=== PATIENT | female | born 1945 | race Caucasian/White ===

== ENCOUNTER 2019-10-18 17:18 | Emergency (ER) | payer MEDICARE, OTHER, SELFPAY ==
[2019-10-18 17:43] VITALS: BP 159/87; PULSE 75; RESP 16; TEMP 36.5; O2SAT 99; BMI 29.5
--- NOTE | 2019-10-18 18:12 | CTR_ITS ---
PROCEDURE INFORMATION: Exam: CT Head Without Contrast Exam date and time: 10/18/2019 6:14 PM Age: 74 years old Clinical indication: Altered mental status/memory loss; Confusion or disorientation; Additional info: AMS TECHNIQUE: Imaging protocol: Computed tomography of the head without contrast. Total DLP: 774.75 mGy-cm Radiation optimization: All CT scans at this facility use at least one of these dose optimization techniques: automated exposure control; mA and/or kV adjustment per patient size (includes targeted exams where dose is matched to clinical indication); or iterative reconstruction. COMPARISON: CT head wo con* [id number] 05/13/2016 7:53 PM FINDINGS: Brain: Mild diffuse cortical volume loss. Mild hypodensities in supratentorial periventricular white matter. No intracranial hemorrhage. Ventricles: Normal. No ventriculomegaly. Bones/joints: Unremarkable. No acute fracture. Sinuses: Visualized sinuses are unremarkable. No fluid levels. Mastoid air cells: Visualized mastoid air cells are well aerated. Soft tissues: Unremarkable. CT/CT head wo con* [id number] IMPRESSION: 1. No acute intracranial abnormality. 2. Mild microangiopathy. Radiation Dose CTDIVOL = (mGy): DLP = 774.75 (mGy-cm)
--- NOTE | 2019-10-18 18:12 | XR_ITS ---
WS: [id number] PORTABLE CHEST HISTORY: Chest pain, acute onset. COMPARISON: 05/13/2016 Lungs are clear and well expanded. No pleural effusion or pneumothorax. Cardiac size: Normal. Mediastinum/Aorta: Normal mediastinum. No osseous abnormality seen. XR/XR chest 1V portable [id number] IMPRESSION: Unremarkable portable chest.
--- NOTE | 2019-10-18 18:13 | ECG_ITS ---
Measurements Intervals [place] Rate: 74 P: 35 [place]: 174 QRS: 2 QRSD: 85 T: 31 QT: 368 QTc: [address] ELEVATION [0.05+ mV ST ELEVATION] Compared to ECG 01/08/2017 11:56:08 ST (T wave) deviation now present Myocardial infarct finding no longer present Electronically Signed On 10-19-2019 13:29:58 RESEARCH MECHANIC by Alisha Olivarez M.D. [id number]
[2019-10-18 19:14] LABS: Basophils % 0.6 %; Eosinophils # 0.2 10^3/uL (0.0-0.8); Eosinophils % 2.6 %; Hematocrit 40.7 % (37.0-47.0); Hemoglobin 13.7 g/dL (11.5-15.3); Lymphocytes # 1.3 10^3/uL (0.8-4.8); Lymphocytes % 19.7 %; Mean Corpuscular HGB Conc 33.7 g/dL (30.0-36.0); Mean Corpuscular Hemoglobin 29.8 pg (28.0-34.0); Mean Corpuscular Volume 88.7 fL (81-99); Mean Platelet Volume 10.3 fL (7.4-10.4); Monocytes # 0.6 10^3/uL (0.2-0.9); Monocytes % 8.7 %; Neutrophils # 4.4 10^3/uL (1.8-7.7); Neutrophils % 68.1 %; Nucleated Red Blood Cells % 0 %; Platelet Count 222 10^3/cmm (130-400); Red Blood Count 4.59 10^6/uL (4.1-5.3); Red Cell Distribution Width 12.3 % (12.1-15.1); White Blood Count 6.4 10^3/uL (4.0-10.0)
--- NOTE | 2019-10-18 19:30 | ECG_ITS ---
Measurements Intervals [place] Rate: 74 P: 35 [place]: 174 QRS: 2 QRSD: 85 T: 31 QT: 368 QTc: [address] ELEVATION [0.05+ mV ST ELEVATION] Compared to ECG 01/08/2017 11:56:08 ST (T wave) deviation now present Myocardial infarct finding no longer present Electronically Signed On 10-19-2019 13:41:[address] RESEARCHER by Alisha Olivarez M.D. [id number]
[2019-10-18 19:57] LABS: Alanine Aminotransferase 19 U/L (0-33); Albumin Level 4.9 g/dL (3.5-5.2); Alkaline Phosphatase 89 IU/L (35-105); Anion Gap 16.8 (5-19); Aspartate Amino Transferase 26 U/L (0-32); Blood Urea Nitrogen 11 mg/dL (8-23); Calcium 10.5 mg/Dl (8.8-10.2); Carbon Dioxide 24 mmol/L (22-29); Chloride 95 mmol/L (98-107); Globulin 2.2 g/dL (1.3-4.6); Glucose 146 mg/dL (74-106); Potassium 3.8 mmol/L (3.5-5.1); Sodium 132 mmol/L (136-145); Total Bilirubin 0.4 mg/dL (0.15-1.2); Total Protein 7.1 g/dL (6.6-8.7); Troponin(5th) Baseline 11 ng/mL (0-10)
--- NOTE | 2019-10-18 20:13 | ECG_ITS ---
Measurements Intervals [place] Rate: 70 P: 35 [place]: 161 QRS: -3 QRSD: 89 T: 18 QT: 382 QTc: 413 SINUS RHYTHM Compared to ECG 01/08/2017 11:56:08 Myocardial infarct finding no longer present Electronically Signed On 10-19-2019 13:39:21 CIAIO LUMITE INJECTOR by Alisha Olivarez M.D. [id number]
[2019-10-18 20:48] LABS: Troponin 5 2HR 12.27 ng/mL (0-10); Troponin 5 2HR Delta 1.27 ABS# (0-10)
--- NOTE | 2019-10-18 22:42 | ED_ITS ---
Entered by Marybeth Cabrera, acting as scribe for Areli Helms MD Oct 18, 2019 17:18 HPI - Altered Mental Status General: Chief Complaint: Altered Mental Status Stated Complaint: ams Time Seen by Provider: 10/18/19 22:43 Source: patient Mode of arrival: ambulatory Limitations: no limitations History of Present Illness: HPI narrative: 74 yo f came to the er pov for altered mental status. Onset was today. Pt states that the last 2-3 days she has had some spells where she was nauseated but did not vomit. Pt states that she was waiting on her grand daughter and she states that she could not focus and she was white as a ghost. Pt states that she has had mini strokes and that pt also lost her memory for years. complaint: altered mental status Onset (ago): day(s) (2-3 days ago) Timing confirmed by: family member Severity: mild Associated symptoms: Reports no associated symptoms; Deny depression Review of Systems Const: Denies: fever or chills Eyes: Denies: change in vision ENMT: Denies: throat pain or mouth pain Card: Denies: chest pain Resp: Denies: shortness of breath GI: Denies: abdominal pain, vomiting or diarrhea : Denies: difficulty urinating Musc: Denies: back pain or joint pain Skin/Breast: Denies: rash Neuro: Denies: headache Psych: Denies: depression Endo: Denies: excessive urination Neel/Lymph: Denies: easy bruising All/Imm: Denies: hives PFSH ED PFSH: Statuses (acute, chronic, etc) shown below reflect problem list status as previously entered and may not be historically accurate Social History Smoking and tobacco status: never smoked Physical Exam Const: COMMON NORMALS: no apparent distress, oriented x3, healthy appearing and alert ORIENTATION/CONSCIOUSNESS: Yes oriented to person, Yes oriented to place and Yes oriented to time HENMT: COMMON NORMALS: normocephalic and external nose normal HEAD & SCALP: normocephalic NOSE: external nose normal Eye: COMMON NORMALS: PERRL PUPIL: Yes PERRL Neck/C-Spine: COMMON NORMALS: full ROM and no lymphadenopathy Chest: COMMONS NORMALS: inspection of chest normal Resp: COMMON NORMALS: normal respiratory effort, no use of accessory muscles and clear to auscultation bilaterally AUSCULTATION: clear to auscultation bilaterally Cardio: COMMON NORMALS: regular rate and regular rhythm RATE: regular rate RHYTHM: regular rhythm GI: COMMON NORMALS: normal to inspection, nondistended, normoactive bowel sounds, soft to palpation, non-tender and no masses PALPATION: Yes soft Back/Pelvis: THORACIC SPINE/UPPER BACK: Yes normal to inspection Extremity: COMMON NORMALS: normal to inspection, full ROM and normal capillary refill Neuro: COMMON NORMALS: oriented x3, CN's II-XII intact bilaterally, moves all extremities, no focal motor deficits and no sensory deficits noted SENSORIUM/ORIENTATION: Yes alert, Yes oriented to person, Yes oriented to place and Yes oriented to time Psych: COMMON NORMALS: mental status grossly normal and cooperative Skin: COMMON NORMALS: no rashes or lesions noted GENERAL SKIN EXAM: no rashes or lesions noted Course Vital Signs: Vital signs: Vital Signs Temperature 97.7 F 10/18/19 23:00 Pulse Rate 74 10/18/19 23:00 Respiratory Rate 16 10/18/19 23:00 Blood Pressure 134/84 10/18/19 23:00 Pulse Oximetry 99 10/18/19 23:00 MDM - Altered Mental Status MDM Narrative: Medical decision making narrative: Patient presents here with an episode of confusion earlier today. Symptoms sound like a TIA and she has a history of this. Patient is to continue her daily aspirin. Patient is well- appearing here and has no signs of acute stroke. Patient is stable for discharge and is to follow-up with her primary care doctor in 3 to 5 days. I informed patient that if her symptoms return she is to return immediately. Lab Data: Labs: Lab Results 10/18/19 10/18/19 10/18/19 Range/Units 19:04 19:04 19:04 WBC 6.4 (4.0-10.0) 10^3/ uL RBC 4.59 (4.1-5.3) 10^6/u L Hgb 13.7 (11.5-15.3) g/dL Hct 40.7 (37.0-47.0) % MCV 88.7 (81-99) fL MCH 29.8 (28.0-34.0) pg MCHC 33.7 (30.0-36.0) g/dL RDW 12.3 (12.1-15.1) % Plt Count 222 (130-400) 10^3/c mm MPV 10.3 (7.4-10.4) fL Neut % (Auto) 68.1 % Lymph % (Auto) 19.7 % [place] % (Auto) 8.7 % Eos % (Auto) 2.6 % Baso % (Auto) 0.6 % Neut # (Auto) 4.4 (1.8-7.7) 10^3/u L Lymph # (Auto) 1.3 (0.8-4.8) 10^3/u L [place] # (Auto) 0.6 (0.2-0.9) 10^3/u L Eos # (Auto) 0.2 (0.0-0.8) 10^3/u L Baso # (Auto) 0.0 (0.0-0.1) 10^3/u L Nucleated RBC % (a uto) 0 % Nucleated RBCs # 0.0 /100WBC Sodium 132 L (136-145) mmol/L Potassium 3.8 (3.5-5.1) mmol/L Chloride 95 L (98-107) mmol/L Carbon Dioxide 24 (22-29) mmol/L Anion Gap 16.8 (5-19) BUN 11 (8-23) mg/dL Creatinine 0.9 (0.5-0.9) mg/dL Glucose 146 H (74-106) mg/dL Calcium 10.5 H (8.8-10.2) mg/Dl Total Bilirubin 0.4 (0.15-1.2) mg/dL AST 26 (0-32) U/L ALT 19 (0-33) U/L Alkaline Phosphata se 89 (35-105) IU/L Troponin T Baselin e 11 H (0-10) ng/mL Troponin T 120 Min lana (0-10) ng/mL Delta Troponin T (0-10) ABS# Total Protein 7.1 (6.6-8.7) g/dL Albumin 4.9 (3.5-5.2) g/dL Globulin 2.2 (1.3-4.6) g/dL 01/13/20 Range/Units 20:12 WBC (4.0-10.0) 10^3/ uL RBC (4.1-5.3) 10^6/u L Hgb (11.5-15.3) g/dL Hct (37.0-47.0) % MCV (81-99) fL MCH (28.0-34.0) pg MCHC (30.0-36.0) g/dL RDW (12.1-15.1) % Plt Count (130-400) 10^3/c mm MPV (7.4-10.4) fL Neut % (Auto) % Lymph % (Auto) % [place] % (Auto) % Eos % (Auto) % Baso % (Auto) % Neut # (Auto) (1.8-7.7) 10^3/u L Lymph # (Auto) (0.8-4.8) 10^3/u L [place] # (Auto) (0.2-0.9) 10^3/u L Eos # (Auto) (0.0-0.8) 10^3/u L Baso # (Auto) (0.0-0.1) 10^3/u L Nucleated RBC % (a uto) % Nucleated RBCs # /100WBC Sodium (136-145) mmol/L Potassium (3.5-5.1) mmol/L Chloride (98-107) mmol/L Carbon Dioxide (22-29) mmol/L Anion Gap (5-19) BUN (8-23) mg/dL Creatinine (0.5-0.9) mg/dL Glucose (74-106) mg/dL Calcium (8.8-10.2) mg/Dl Total Bilirubin (0.15-1.2) mg/dL AST (0-32) U/L ALT (0-33) U/L Alkaline Phosphata se (35-105) IU/L Troponin T Baselin e (0-10) ng/mL Troponin T 120 Min lana 12.27 H (0-10) ng/mL Delta Troponin T 1.27 (0-10) ABS# Total Protein (6.6-8.7) g/dL Albumin (3.5-5.2) g/dL Globulin (1.3-4.6) g/dL Imaging Data^: CXR: Attestation: I personally reviewed and interpreted this imaging study as follows: My impression: no acute abnormality CT Head: Radiologist's impression: Ordering Provider/Ordering MD: Areli Helms MD Date of Service: 10/18/19 Procedure(s): CT head wo con* [id number] Accession Number(s): [id number] Report Number: [id number] PROCEDURE INFORMATION: Exam: CT Head Without Contrast Exam date and time: 10/18/2019 6:14 PM Age: 74 years old Clinical indication: Altered mental status/memory loss; Confusion or disorientation; Additional info: AMS TECHNIQUE: Imaging protocol: Computed tomography of the head without contrast. Total DLP: 774.75 mGy-cm Radiation optimization: All CT scans at this facility use at least one of these dose optimization techniques: automated exposure control; mA and/or kV adjustment per patient size (includes targeted exams where dose is matched to clinical indication); or iterative reconstruction. COMPARISON: CT head wo con* [id number] 05/13/2016 7:53 PM FINDINGS: Brain: Mild diffuse cortical volume loss. Mild hypodensities in supratentorial periventricular white matter. No intracranial hemorrhage. Ventricles: Normal. No ventriculomegaly. Bones/joints: Unremarkable. No acute fracture. Sinuses: Visualized sinuses are unremarkable. No fluid levels. Mastoid air cells: Visualized mastoid air cells are well aerated. Soft tissues: Unremarkable. CT/CT head wo con* [id number] IMPRESSION: 1. No acute intracranial abnormality. 2. Mild microangiopathy. EKG Data^: EKG 1: EKG interpretation date: 10/18/19 EKG interpretation time: 20:40 Interpretation: nsr hr [address] or t wave abnormalties Discharge Plan Discharge Patient Disposition: Home, Self-Care Clinical Impression: TIA (transient ischemic attack) Altered mental status Qualifiers: Altered mental status type: unspecified Qualified Code(s): R41.82 - Altered mental status, unspecified Condition: Stable Prescriptions: No Action gabapentin 300 mg capsule 300 mg PO BID Qty: 180 RF: 3 Discharge Orders: Discharge Order (Routine); Ordered 10/18/19 Ordered By: Areli Helms Referrals: Laurent Yao MD [Primary Care Provider] - 4-7 days Discharge Diet: Advance as tolerated Discharge Activity: Resume usual activity Patient Instructions: Transient Ischemic Attack (ED) Discharge Date/Time: 10/18/19 23:01 Coding Level of Care Code ED Weatherization Technician for Chg Fwd Exam Problem Focused The documentation recorded by the Rick tamez Stephanie Lyn, accurately reflects the service I personally performed and the decisions made by me, Areli Helms MD Oct 18, 2019 17:18
[2019-10-18 23:00] VITALS: BP 134/84; PULSE 74; RESP 16; TEMP 36.5; O2SAT 99
== END 2019-10-18 23:01 | disposition home or self-care (01) ==
PROVIDERS: Emergency Provider Emergency Medicine; Family Provider Internal Medicine; PCP Internal Medicine
DX: G45.9 Transient cerebral ischemic attack, unspecified (principal)
CPT/HCPCS: 36415; 70450; 71045; 80053; 84484; 85025; 93005; 99281

== ENCOUNTER → 2019-11-01 10:52 | Outpatient (BNVA) | payer MEDICARE, OTHER, SELFPAY | PROVIDERS: Family Provider Internal Medicine; PCP Internal Medicine; Visit Provider Internal Medicine | DX: E78.5 Hyperlipidemia, unspecified (principal); Z86.73 Personal history of transient ischemic attack (TIA), and cerebral infarction without residual deficits | CPT/HCPCS: 80061 ==

== ENCOUNTER 2019-11-09 08:16 | Outpatient (CLI) | payer MEDICARE, OTHER, SELFPAY ==
--- NOTE | 2019-11-09 08:00 | MR_ITS ---
WS: [id number] MRA CAROTID WITHOUT AND WITH GADOLINIUM ENHANCEMENT TECHNIQUE: Axial 2-D TOF and gadolinium bolus images obtained with axial images and axial, sagittal, and coronal 2-D reformatted images. CLINICAL INFORMATION: HISTORY OF CVA COMPARISON: None. FINDINGS: Right common carotid artery is patent. No significant ICA stenosis. Right ICA is patent to the skull base. Left common carotid artery is patent. No significant left ICA stenosis. Left ICA is patent to the sku ll base. Both vertebral arteries are patent. Codominant vertebral arteries bilaterally. Proximal basilar arter y is patent. MR/MR angio neck w con* [id number] IMPRESSION: 1. No significant ICA stenosis bilaterally. 2. Codominant and patent vertebral arteries. 3. Normal MRA neck.
--- NOTE | 2019-11-09 08:45 | MR_ITS ---
WS: [id number] MRI HEAD WITH CONTRAST TECHNIQUE: Sagittal T1, T2 axial, T2 axial FLAIR, axial susceptibility weighted imaging, axial diffus ion weighted images, and coronal T2 images were obtained. Pre and post-T1 axial and post T1 coronal i mages. ADC and FSPGR images. CLINICAL INFORMATION: history cva COMPARISON: CT October 18, 2019 and MRI FINDINGS: No evidence of restricted diffusion to suggest acute ischemia. Ventricular system and basal cisterns are patent. Mild small vessel changes. Moderate parenchymal volume loss. Normal posterior fossa. Norm al vascular flow voids at the skull base. No extra-axial fluid collections. Partial opacification lef t mastoid tip. No hemosiderin on the susceptibility weighted images. Normal optic chiasm and pituitary infundibulum. No abnormal intracranial enhancement. Normal visualiz ed dural venous sinuses. MR/MR head wo/w con [id number] IMPRESSION: 1. No evidence of restricted diffusion to suggest acute ischemia. 2. Mild small vessel changes with moderate parenchymal volume loss. Volume los s only slightly progressed since 2011. 3. No hemosiderin on susceptibly weighted images. 4. No abnormal intracranial enhancement. 5. Mucosal thickening left mastoid air cells.
== END 2019-11-09 08:17 | disposition home or self-care (01) ==
LOC: RADSHAW 08:20
PROVIDERS: Family Provider Internal Medicine; PCP Internal Medicine; Visit Provider Internal Medicine
DX: Z86.73 Personal history of transient ischemic attack (TIA), and cerebral infarction without residual deficits (principal)
CPT/HCPCS: 70548; 70553; A9579

== ENCOUNTER 2019-12-14 09:35 | Outpatient (CLI) | payer MEDICARE, OTHER, SELFPAY ==
--- NOTE | 2019-12-14 09:45 | MM_ITS ---
WS: [id number] BILATERAL DIGITAL SCREENING MAMMOGRAPHY WITH CAD CLINICAL INFORMATION: SCREENING HISTORY: Screening mammogram. No current complaints. COMPARISON: April 14, 2019 TECHNIQUE: Bilateral CC and MLO views. FINDINGS: Scattered fibroglandular densities bilaterally. Postoperative changes with parenchymal scarring upper quadrant left breast unchanged. Coarse and punctate calcifications. Vascular calcifications. No susp icious focal mass, asymmetry, calcifications, or architectural distortion. No evidence of malignancy. MM/[place] [id number] IMPRESSION: BI-RADS: 2-Benign FOLLOW UP: 1 Year Follow-up Recommend return to annual screening mammography.
== END 2019-12-14 09:36 | disposition home or self-care (01) ==
LOC: RADSHAW 09:42
PROVIDERS: Family Provider Internal Medicine; PCP Internal Medicine; Visit Provider Internal Medicine
DX: Z12.31 Encounter for screening mammogram for malignant neoplasm of breast (principal)
CPT/HCPCS: 77067

== ENCOUNTER 2020-03-17 09:04 | Day surgery (SDC) | payer MEDICARE, OTHER, SELFPAY ==
[2020-03-17] MEDS: sodium chloride 0.9% 1,000 ML 30 ML IV (09:36)
[2020-03-17 09:44] VITALS: BP 136/63; PULSE 71; RESP 18; TEMP 36.1; O2SAT 98
[2020-03-17 09:48] VITALS: BMI 29.2
--- NOTE | 2020-03-17 09:49 | ANES.PREANE2 ---
Pre-Anesthetic Assessment Pre-Anesthetic Assessment: Height/Weight: Height 1.65 m Weight 79.832 kg Temp Pulse Resp BP Pulse Ox 96.9 F L 71 18 136/63 98 03/17/20 09:44 03/17/20 09:44 03/17/20 09:44 03/17/20 09:44 03/17/20 09:44 Preop Diagnosis: ep Proposed Procedure: Operation Date: 03/17/20 10:30 Proposed Procedures p EGD 17765 R10.13(Not Applicable) - Laurent Yao MD Familial anesthetic complications: None Was Beta True taken within 24 hours: Yes Last intake: Intake Last Liquid Date 03/16/20 Last Liquid Time 19:30 Last Solid Date 03/16/20 Last Solid Time 19:30 Social: Social History: No alcohol and No tobacco Exam: Pre-Anes Outpt Exam: alert, oriented x 3, clear to auscultation bilaterally and regular rate & rhythm Airway: Cervical ROM: WNL MP: 2 Dentition: False Pulmonary: Pulmonary: Asthma CV/HEM: CV/HEM: CAD (stents (> 1 year ago)) and HTN : : None reported Hepatic: Hepatic: None reported GI: GI: GERD Metabolic: Metabolic: Hyperlipidemia and Thyroid Musc/skel: Musc/skel: OA/DJD Comments: spine surgery - cervical Neuropsych: Neuropsych: TIA Comments: memory loss Anesthetic Plan: ASA status: 3 Anesthesia: MAC Risk of > 500 ml blood loss (7ml/kg in children): No Meds/Allergies Current Medications: Current Medications Generic Name Dose Route Start Last Admin Trade Name Freq PRN Reason Stop Dose Admin Sodium Chloride 1,000 mls @ 30 ml s/hr 03/17/20 09:30 03/17/20 09:36 Sodium Chloride 0.9% IV 30 mls/hr .Q24H MANNY Administration PFSH Anesthesia PFSH: Medical History (Updated 03/13/20 @ 14:59 by Laurent Yao MD) Atherosclerotic heart disease Back pain Fibromyalgia History of CVA (cerebrovascular accident) HTN (hypertension) Hyperlipidemia Hypothyroidism Neuropathy Osteoarthritis Surgical History Hx of excision of lamina of cervical vertebra for decompression of spinal cord Dr Patel - 08/2014 S/P angioplasty 08/2004 - 2 stents placed S/P cataract extraction Bilateral - Prosthetic lenses now S/P hysterectomy S/P knee replacement Total right - 07/2006, Total left - 02/2007 S/P rotator cuff repair Right shoulder Status post lumbar laminectomy Dr Patel Family History Father Heart attack Brother CAD (coronary artery disease) Mother Cancer Social History Smoking and tobacco status: never smoked Alcohol intake: current Marital status: History of recent travel: No Current gender identity: Female Data Anesthesia Cardiac Studies: No Data to Display
[2020-03-17] MEDS: metoprolol succinate ER (24 HR) 50 mg Tablet PO (10:13)
--- NOTE | 2020-03-17 10:35 | W.PM.OPSUD ---
Surgery/Procedure H&P Update DATE OF PROCEDURE: March 17, 2020 DATE H&P PERFORMED: 03/13/20 PREOP DIAGNOSIS: ep PLANNED PROCEDURE: Operation Date: 03/17/20 10:30 Proposed Procedures p EGD 38208 R10.13(Not Applicable) - Laurent Yao MD
[2020-03-17 10:59] VITALS: BP 81/70; PULSE 73; RESP 18; TEMP 36.9; O2SAT 97
[2020-03-17 11:11] VITALS: BP 140/79; PULSE 68; RESP 18; O2SAT 99
--- NOTE | 2020-03-17 11:26 | ANE.PACU2 ---
Inpatient post-anesthesia follow up: Airway intact: Yes Vital signs: Temperature 98.4 F Pulse Rate 68 Respiratory Rate 18 Blood Pressure 140/79 Pulse Oximetry 99 Oxygen Delivery Me thod Room Air Oxygen Flow Rate Fraction of Inspir ed Oxygen Hydration adequate: Yes Nausea and vomiting: No Mental status: Baseline
[2020-03-20 06:51] LABS: H. Pylori / CLO Test Negative
== END 2020-03-17 11:57 | disposition home or self-care (01) ==
PROVIDERS: PCP Internal Medicine; Visit Provider Internal Medicine
PROC: 0DJ08ZZ Inspection of Upper Intestinal Tract, Via Natural or Artificial Opening Endoscopic (ICD-10-PCS; CPT 43235; principal; 2020-03-17 10:30)
DX: R10.13 Epigastric pain (principal); K25.7 Chronic gastric ulcer without hemorrhage or perforation; K26.9 Duodenal ulcer, unspecified as acute or chronic, without hemorrhage or perforation; J45.909 Unspecified asthma, uncomplicated; I25.10 Atherosclerotic heart disease of native coronary artery without angina pectoris; E78.5 Hyperlipidemia, unspecified; M19.90 Unspecified osteoarthritis, unspecified site; Z86.73 Personal history of transient ischemic attack (TIA), and cerebral infarction without residual deficits; M79.7 Fibromyalgia; E11.40 Type 2 diabetes mellitus with diabetic neuropathy, unspecified; M81.0 Age-related osteoporosis without current pathological fracture; Z95.5 Presence of coronary angioplasty implant and graft; Z82.49 Family history of ischemic heart disease and other diseases of the circulatory system
CPT/HCPCS: 12345; 43239; 87077; J7030

== ENCOUNTER → 2020-06-26 08:46 | Outpatient (BNVA) | payer MEDICARE, OTHER, SELFPAY | PROVIDERS: PCP Internal Medicine; Visit Provider Internal Medicine Cardiovascular Disease | DX: E78.2 Mixed hyperlipidemia (principal) | CPT/HCPCS: 80061 ==

== ENCOUNTER → 2020-07-10 11:13 | Outpatient (BNVA) | payer MEDICARE, OTHER, SELFPAY | PROVIDERS: Family Provider Internal Medicine; PCP Internal Medicine; Visit Provider Internal Medicine Cardiovascular Disease | DX: R53.83 Other fatigue (principal); N18.9 Chronic kidney disease, unspecified; Z79.01 Long term (current) use of anticoagulants | CPT/HCPCS: 84443; 85025 ==

== ENCOUNTER → 2020-12-26 10:00 | Outpatient (BNVA) | payer MEDICARE, OTHER, SELFPAY | PROVIDERS: Family Provider Internal Medicine; PCP Internal Medicine; Visit Provider Internal Medicine | DX: M19.90 Unspecified osteoarthritis, unspecified site (principal); R53.83 Other fatigue; K27.9 Peptic ulcer, site unspecified, unspecified as acute or chronic, without hemorrhage or perforation | CPT/HCPCS: 80053; 84443; 85025 ==

== ENCOUNTER → 2021-04-26 10:08 | Outpatient (BNVA) | payer MEDICARE, OTHER, SELFPAY | PROVIDERS: Family Provider Internal Medicine; PCP Internal Medicine; Visit Provider Internal Medicine | DX: M79.10 Myalgia, unspecified site (principal); W19.XXXA Unspecified fall, initial encounter; R53.83 Other fatigue | CPT/HCPCS: 80053; 82550; 84443; 85651; 86140 ==

== ENCOUNTER 2021-05-17 20:57 | Emergency (ER) | payer MEDICARE, OTHER, SELFPAY ==
[2021-05-17 21:11] VITALS: BP 131/107; PULSE 63; RESP 18; TEMP 36.9; O2SAT 97; BMI 30.7
--- NOTE | 2021-05-17 21:42 | CTR_ITS ---
PROCEDURE INFORMATION: Exam: CT Head Without Contrast Exam date and time: 05/17/2021 9:42 PM Age: 76 years old Clinical indication: Syncope and collapse; Additional info: Pre-syncope TECHNIQUE: Imaging protocol: Computed tomography of the head without contrast. Radiation optimization: All CT scans at this facility use at least one of these dose optimization techniques: automated exposure control; mA and/or kV adjustment per patient size (includes targeted exams where dose is matched to clinical indication); or iterative reconstruction. COMPARISON: MR head wo/w con [id number] 11/09/2019 8:47 AM RADIATION DOSE METRICS: Total DLP (mGy-cm): 878.71 FINDINGS: Brain: There is moderate cerebral atrophy. No hemorrhage. Unremarkable white matter. No mass effect. Cerebral ventricles: No ventriculomegaly. Paranasal sinuses: Visualized sinuses are unremarkable. No fluid levels. Mastoid air cells: Visualized mastoid air cells are well aerated. Bones/joints: Unremarkable. No acute fracture. Soft tissues: Unremarkable. CT/CT head wo con* [id number] IMPRESSION: No acute intracranial abnormality. Radiation Dose CTDIVOL = (mGy): DLP = 878.71 (mGy-cm)
--- NOTE | 2021-05-17 21:42 | XRR_ITS ---
PROCEDURE INFORMATION: Exam: XR Chest Exam date and time: 05/17/2021 9:42 PM Age: 76 years old Clinical indication: Other: Weakness, near syncope; Prior surgery; Surgery type: Stents; Additional info: Pre-syncope TECHNIQUE: Imaging protocol: XR of the chest. Views: 1 view. COMPARISON: CR XR chest 1V portable [id number] 10/18/2019 6:40 PM FINDINGS: Lungs: Unremarkable. No consolidation. Pleural spaces: Unremarkable. No pleural effusion. No pneumothorax. Heart/Mediastinum: Unremarkable. No cardiomegaly. Bones/joints: Unremarkable. XR/XR chest 1V portable [id number] IMPRESSION: No acute findings.
--- NOTE | 2021-05-17 21:45 | ECG_ITS ---
[facility] ED Test Date: 2021-05-17 Pat Name: Marcy Byers Department: Room: Gender: Female Optical Technician: : 1945 Requested By: Chiqui Stevenson I Order Number: [id number] [place] MD: Alisha Olivarez M.D. Measurements Intervals [place] Rate: 63 P: 53 [place]: 178 QRS: 5 QRSD: 90 T: 38 QT: 412 QTc: 425 Interpretive Statements SINUS RHYTHM Compared to ECG 10/18/2019 20:40:13 No significant changes Electronically Signed On 05-22-2021 16:13:24 CDT by Alisha Olivarez M.D. [email or web address]
[2021-05-17 22:35] VITALS: PULSE 67; RESP 18; O2SAT 97
[2021-05-17 22:52] LABS: Add Urine Culture? Yes; Add Urine Microscopic? YES; Bacteria Urine TRACE /hpf; Bilirubin Urine Neg (Negative); Blood Urine Neg (Negative); Glucose Urine UA Norm (Normal); Hyaline Casts Urine 0-4 /lpf; Ketones Urine Negative (Negative); Leukocyte Esterase Urine 2+ (Negative); Nitrate Urine Negative (Negative); Protein Urine Neg (Negative); RBC Urine 0-4 /hpf (0-2); Specific Gravity, Urine 1.005 (1.005-1.030); Squamous Epithelial Cell Urine 0-4 /hpf (0-5); Sulfosalicylic Acid Urine Negative (Negative); Urine Appearance Clear (CLEAR); Urine Color Yellow (Yellow); Urobilinogen Urine 1 mg/dL (Negative); WBC Urine 15-25 /hpf (0-5); pH Urine 8 (5-7)
[2021-05-17 22:54] LABS: Amphetamines Screen Urine Negative (Negative); Barbiturates Screen Urine Negative (Negative); Benzodiazepines Screen Urine Negative (Negative); Cocaine Screen Urine Negative (Negative); Opiate Screen Urine Negative (Negative); PCP Screen Urine Negative (Negative); THC Screen Urine Negative (Negative)
[2021-05-17 23:04] LABS: Basophils # 0.1 10^3/uL (0.0-0.1); Basophils % 0.8 %; Eosinophils # 0.3 10^3/uL (0.0-0.8); Eosinophils % 4.9 %; Hematocrit 38.8 % (37.0-47.0); Hemoglobin 12.8 g/dL (11.5-15.3); Lymphocytes # 1.4 10^3/uL (0.8-4.8); Lymphocytes % 21.6 %; Mean Corpuscular Hemoglobin 30.3 pg (28.0-34.0); Mean Corpuscular Volume 91.7 fL (81-99); Mean Platelet Volume 10.6 fL (7.4-10.4); Monocytes # 0.7 10^3/uL (0.2-0.9); Monocytes % 10.6 %; Neutrophils # 4.03 10^3/uL (1.8-7.7); Neutrophils % 61.8 %; Nucleated Red Blood Cells % 0 %; Platelet Count 193 10^3/cmm (130-400); Red Blood Count 4.23 10^6/uL (4.1-5.3); Red Cell Distribution Width 12.1 % (12.1-15.1); White Blood Count 6.5 10^3/uL (4.0-10.0)
[2021-05-17 23:05] VITALS: BP 146/89; PULSE 63; RESP 18; O2SAT 98
[2021-05-17 23:12] VITALS: BP 154/65; BP 155/74; BP 156/105; PULSE 61; PULSE 64; PULSE 74
[2021-05-17 23:16] LABS: Troponin(5th) Baseline 12 ng/L (0-10)
[2021-05-17 23:27] LABS: NT Pro B Type Natriuretic Pept 173 pg/mL (0-450); Procalcitonin 0.04 ng/mL (0-0.5); Thyroid Stimulating Hormone 3.99 uIU/mL (0.27-4.20)
--- NOTE | 2021-05-17 23:27 | ED_ITS ---
HPI - Syncope General: Chief Complaint: Syncope Stated Complaint: near syncope Time Seen by Provider: 05/17/21 21:12 Source: patient, family (granddaughter) and RN notes reviewed Mode of arrival: EMS Limitations: no limitations History of Present Illness: HPI narrative: 76-year-old female patient who presents to the emergency department with complaints of possible TIA. She said that several years ago she had multiple TIAs that led to memory issues. She feels like she is feeling the same way again. Today she has had several episodes of feeling dizzy and lightheaded and her brain being foggy. She also felt like her balance was off. Symptoms started more than 12 hours ago. Her granddaughter who presents to the emergency department with the patient states that the patient has these episodes often. Whenever she has these episodes she gives off a blank stare. She is currently working with her primary care provider and he is recommending physical therapy. She has not been evaluated by neurology MD complaint: almost passed out Onset (ago): hour(s) (12) -: minutes(s) Description of event: post-event confusion Prodromal symptoms: lightheaded Witnessed: Yes - by Bystander Context: at rest and standing up Injuries sustained associated with event: none Associated symptoms: Reports lightheadedness; Deny abdominal pain, chest pain, fever(s), headache(s), nausea, short of breath, vertigo or weakness Review of Systems General: Reports: 10 or more systems reviewed and unremarkable except in HPI and below Const: Denies: fever(s) Card: Reports: lightheadedness; Denies: chest pain GI: Denies: abdominal pain or nausea Neuro: Denies: headache(s) or vertigo [facility] ED PFSH: Medical History (Updated 05/18/21 @ 00:16 by Chiqui [place] [facility] [place] Atherosclerotic heart disease Back pain Fatigue Fibromyalgia History of CVA (cerebrovascular accident) HTN (hypertension) Hyperlipidemia Hypothyroidism Neuropathy Osteoarthritis Surgical History (Reviewed 05/17/21 @ 23:39 by Chiqui Stevenson MD, [facility] [place] Hx of excision of lamina of cervical vertebra for decompression of spinal cord Dr Patel - 08/2014 S/P angioplasty 08/2004 - 2 stents placed S/P cataract extraction Bilateral - Prosthetic lenses now S/P hysterectomy S/P knee replacement Total right - 07/2006, Total left - 02/2007 S/P rotator cuff repair Right shoulder Status post lumbar laminectomy Dr Patel Family History (Reviewed 05/17/21 @ 23:39 by Chiqui Stevenson MD, [facility] [place] Father Heart attack Brother CAD (coronary artery disease) Mother Cancer Social History (Reviewed 05/17/21 @ 23:39 by Chiqui Stevenson MD, [facility] [place] Smoking and tobacco status: former smoker Alcohol intake: current Marital status: History of recent travel: No Current gender identity: Female Physical Exam Const: COMMON NORMALS: no acute distress, average body habitus, patient oriented x3, no limitations, healthy appearing, alert and well nourished HENMT: COMMON NORMALS: normocephalic, atraumatic and moist oral mucous membranes HEAD & SCALP: normocephalic and atraumatic Neck/C-Spine: COMMON NORMALS: no meningeal signs and no JVD Resp: COMMON NORMALS: normal respiratory effort, No retractions, No use of ac cessory muscles, clear to auscultation bilaterally and percussion normal AUSCULTATION: clear to auscultation bilaterally PERCUSSION: percussion normal Cardio: COMMON NORMALS: no JVD, regular rate, regular rhythm, S1 normal heart sound present, S2 normal heart sound present, No gallops present (Cardio), No clicks present (Cardio), No murmurs present (Cardio), No rub (Cardio) and Peripheral pulses 2+ throughout RATE: regular rate RHYTHM: regular rhythm HEART SOUNDS: S1 normal heart sound present and S2 normal heart sound present PERIPHERAL PULSES: Peripheral pulses 2+ throughout GI: COMMON NORMALS: Normal to inspection, nondistended, normoactive bowel sounds present, Soft to palpation, non-tender, No hepatosplenomegaly present, no masses and no bruits PALPATION: Yes Soft to palpation and Yes No hepatosplenomegaly present Extremity: COMMON NORMALS: normal to inspection, full ROM, capillary refill normal, no calf tenderness and no pedal edema Neuro: COMMON NORMALS: patient oriented x3 SENSORIUM/ORIENTATION: Yes alert MENINGEAL SIGNS: Yes no meningeal signs Skin: COMMON NORMALS: no rashes or lesions noted, no wounds, turgor normal, no jaundice, no petechiae and no mottling GENERAL SKIN EXAM: no rashes or lesions noted and turgor normal Course Reevaluation(s): Reevaluation #1: Discussed her lab and imaging findings with the patient and her granddaughter. Other than a urinary tract infection no acute findings. We will discharge her home with a prescription for Augmentin. She will be given a dose of intravenous ceftriaxone in the emergency department. Advised that she follows up with a neurologist for further evaluation and work- up and I suspect that she has the onset of dementia. Her granddaughter thinks the same. We will put in a case management referral for her to be referred to a neurologist. The patient states that she does not want to see Dr. Mike so she will be referred to another neurologist. Time: 00:13 Vital Signs: Vital signs: Vital Signs Temperature 98.4 F 05/17/21 21:11 Pulse Rate 61 05/18/21 00:40 Respiratory Rate 18 05/18/21 00:40 Blood Pressure 126/74 05/18/21 00:40 Pulse Oximetry 97 05/18/21 00:40 MDM - Syncope MDM Narrative: Medical decision making narrative: 76-year-old female patient who was brought into the emergency department with concerns for a TIA. She has had multiple episodes of these spells. In the ED her evaluation is consistent with a UTI and nothing else significant. Talking to her though it appears that she has some memory deficits and there is elements of confabulation to her story. She also repeats herself over and over repeats the same stories. I believe the patient has dementia and will benefit from evaluation by neurologist. Another thing to consider is possible seizures and so that is another reason why I advised that she be evaluated by a neurologist. Referral was made to case management to schedule an appointment with a neurologist. Medical Records: Attestation: I reviewed the patient's medical records. Lab Data: Attestation: I reviewed the patient's lab results. Labs: Lab Results 05/17/21 05/17/21 05/17/21 Range/Units 22:27 22:27 22:51 WBC 6.5 (4.0-10.0) 10^3/ uL RBC 4.23 (4.1-5.3) 10^6/u L Hgb 12.8 (11.5-15.3) g/dL Hct 38.8 (37.0-47.0) % MCV 91.7 (81-99) fL MCH 30.3 (28.0-34.0) pg MCHC 33.0 (30.0-36.0) g/dL RDW 12.1 (12.1-15.1) % Plt Count 193 (130-400) 10^3/c mm MPV 10.6 H (7.4-10.4) fL Neut % (Auto) 61.8 % Lymph % (Auto) 21.6 % [place] % (Auto) 10.6 % Eos % (Auto) 4.9 % Baso % (Auto) 0.8 % Neut # (Auto) 4.03 (1.8-7.7) 10^3/u L Lymph # (Auto) 1.4 (0.8-4.8) 10^3/u L [place] # (Auto) 0.7 (0.2-0.9) 10^3/u L Eos # (Auto) 0.3 (0.0-0.8) 10^3/u L Baso # (Auto) 0.1 (0.0-0.1) 10^3/u L Nucleated RBC % (a uto) 0 % Nucleated RBCs # 0.0 /100WBC Sodium (136-145) mmol/L Potassium (3.5-5.1) mmol/L Chloride (98-107) mmol/L Carbon Dioxide (22-29) mmol/L Anion Gap (5-19) BUN (8-23) mg/dL Creatinine (0.5-0.9) mg/dL GFR Calculation Glucose (65-115) mg/dL Calculated Osmolal ity (285-295) mOsm/k g Calcium (8.5-10.5) mg/dL Total Bilirubin (0.15-1.2) mg/dL AST (0-32) U/L ALT (0-33) U/L Alkaline Phosphata se (35-105) IU/L Creatine Kinase (26-192) U/L Troponin T Baselin e (0-10) ng/L C-Reactive Protein (0.0-4.9) mg/L NT-Pro-B Natriuret Pep (0-450) pg/mL Total Protein (6.6-8.7) g/dL Albumin (3.5-5.2) g/dL Globulin (1.3-4.6) g/dL Procalcitonin (0-0.5) ng/mL TSH (0.27-4.20) uIU/ mL Urine Color Yellow (Yellow) Urine Appearance Clear (CLEAR) Urine pH 8 H (5-7) Ur Specific Gravit y 1.005 (1.005-1.030) Urine Protein Neg (Negative) Urine Glucose (UA) Norm (Normal) Urine Ketones Negative (Negative) Urine Blood Neg (Negative) Urine Nitrate Negative (Negative) Urine Bilirubin Neg (Negative) Prot Sulfosalicyli c Acd Negative (Negative) Urine Urobilinogen 1 H (Negative) mg/dL Ur Leukocyte Corinne ase 2+ H (Negative) Urine RBC 0-4 H (0-2) /hpf Urine WBC 15-25 H (0-5) /hpf Ur Squamous Epith Cells 0-4 H (0-5) /hpf Amorphous Sediment Not Reportable Urine Bacteria Trace (NONE) /hpf Hyaline Casts 0-4 H /lpf Urine Opiates Scre en Negative (Negative) ng/mL Ur Barbiturates Sc reen Negative (Negative) ng/mL Ur Phencyclidine S crn Negative (Negative) ng/mL Ur Amphetamines Sc reen Negative (Negative) ng/mL U Benzodiazepines Scrn Negative (Negative) ng/mL Urine Cocaine Scre en Negative (Negative) ng/mL U Marijuana (THC) Screen Negative (Negative) ng/mL 3 05/17/21 05/17/21 Range/Units 22:51 22:51 WBC (4.0-10.0) 10^3/ uL RBC (4.1-5.3) 10^6/u L Hgb (11.5-15.3) g/dL Hct (37.0-47.0) % MCV (81-99) fL MCH (28.0-34.0) pg MCHC (30.0-36.0) g/dL RDW (12.1-15.1) % Plt Count (130-400) 10^3/c mm MPV (7.4-10.4) fL Neut % (Auto) % Lymph % (Auto) % Columbia % (Auto) % Eos % (Auto) % Baso % (Auto) % Neut # (Auto) (1.8-7.7) 10^3/u L Lymph # (Auto) (0.8-4.8) 10^3/u L [place] # (Auto) (0.2-0.9) 10^3/u L Eos # (Auto) (0.0-0.8) 10^3/u L Baso # (Auto) (0.0-0.1) 10^3/u L Nucleated RBC % (a uto) % Nucleated RBCs # /100WBC Sodium 128 L (136-145) mmol/L Potassium 3.9 (3.5-5.1) mmol/L Chloride 94 L (98-107) mmol/L Carbon Dioxide 19 L (22-29) mmol/L Anion Gap 18.9 (5-19) BUN 14 (8-23) mg/dL Creatinine 0.9 (0.5-0.9) mg/dL GFR Calculation Not Reportable Glucose 96 (65-115) mg/dL Calculated Osmolal ity 266 L (285-295) mOsm/k g Calcium 8.8 (8.5-10.5) mg/dL Total Bilirubin 0.5 (0.15-1.2) mg/dL AST 20 (0-32) U/L ALT 12 (0-33) U/L Alkaline Phosphata se 91 (35-105) IU/L Creatine Kinase 83 (26-192) U/L Troponin T Baselin e 12 H (0-10) ng/L C-Reactive Protein 0.6 (0.0-4.9) mg/L NT-Pro-B Natriuret Pep 173 (0-450) pg/mL Total Protein 6.4 L (6.6-8.7) g/dL Albumin 4.1 (3.5-5.2) g/dL Globulin 2.3 (1.3-4.6) g/dL Procalcitonin 0.04 (0-0.5) ng/mL TSH 3.99 (0.27-4.20) uIU/ mL Urine Color (Yellow) Urine Appearance (CLEAR) Urine pH (5-7) Ur Specific Gravit y (1.005-1.030) Urine Protein (Negative) Urine Glucose (UA) (Normal) Urine Ketones (Negative) Urine Blood (Negative) Urine Nitrate (Negative) Urine Bilirubin (Negative) Prot Sulfosalicyli c Acd (Negative) Urine Urobilinogen (Negative) mg/dL Ur Leukocyte Corinne ase (Negative) Urine RBC (0-2) /hpf Urine WBC (0-5) /hpf Ur Squamous Epith Cells (0-5) /hpf Amorphous Sediment Urine Bacteria (NONE) /hpf Hyaline Casts /lpf Urine Opiates Scre en (Negative) ng/mL Ur Barbiturates Sc reen (Negative) ng/mL Ur Phencyclidine S crn (Negative) ng/mL Ur Amphetamines Sc reen (Negative) ng/mL U Benzodiazepines Scrn (Negative) ng/mL Urine Cocaine Scre en (Negative) ng/mL U Marijuana (THC) Screen (Negative) ng/mL Imaging Data^: CXR: Attestation: I personally reviewed and interpreted this imaging study as follows: Radiologist's impression: [address] [id number] ReportSigned Patient: Marcy Byers #: [id number]: 02/03cct#:[id number]/Sex: 76 / FADM Date: 05/17/21Loc: ERRoom/Bed:Attending Dr: Ordering Provider/Ordering MD: Chiqui [place] MD, [facility] [place] of Service: 05/17/21 Procedure(s): XR chest 1V portable [id number] Accession Number(s): [id number] Report Number: [id number] PROCEDURE INFORMATION: Exam: XR Chest Exam date and time: 05/17/2021 9:42 PM Age: 76 years old Clinical indication: Other: Weakness, near syncope; Prior surgery; Surgery type: Stents; Additional info: Pre-syncope TECHNIQUE: Imaging protocol: XR of the chest. Views: 1 view. COMPARISON: CR XR chest 1V portable [id number] 10/18/2019 6:40 PM FINDINGS: Lungs: Unremarkable. No consolidation. Pleural spaces: Unremarkable. No pleural effusion. No pneumothorax. Heart/Mediastinum: Unremarkable. No cardiomegaly. Bones/joints: Unremarkable. XR/XR chest 1V portable [id number] IMPRESSION: No acute findings. Dictated By:Toby Chamorro By:Toby Chamorro Date/Time:05/17/21 2230DD/ 28 CT Head: Attestation: I personally reviewed and interpreted this imaging study as follows: Radiologist's impression: [address] [id number] Scan ReportSigned Patient: Marcy Byers #: [id number]: 3Acct#:[id number]/Sex: 76 / FADM Date: 05/17/21Loc: ERRoom/Bed:Attending Dr: Ordering Provider/Ordering MD: Chiqui Stevenson MD, [facility] [place] Date of Service: 05/17/21 Procedure(s): CT head wo con* [id number] Accession Number(s): [id number] Report Number: [id number] PROCEDURE INFORMATION: Exam: CT Head Without Contrast Exam date and time: 05/17/2021 9:42 PM Age: 76 years old Clinical indication: Syncope and collapse; Additional info: Pre-syncope TECHNIQUE: Imaging protocol: Computed tomography of the head without contrast. Radiation optimization: All CT scans at this facility use at least one of these dose optimization techniques: automated exposure control; mA and/or kV adjustment per patient size (includes targeted exams where dose is matched to clinical indication); or iterative reconstruction. COMPARISON: MR head wo/w con [id number] 11/09/2019 8:47 AM RADIATION DOSE METRICS: Total DLP (mGy-cm): 878.71 FINDINGS: Brain: There is moderate cerebral atrophy. No hemorrhage. Unremarkable white matter. No mass effect. Cerebral ventricles: No ventriculomegaly. Paranasal sinuses: Visualized sinuses are unremarkable. No fluid levels. Mastoid air cells: Visualized mastoid air cells are well aerated. Bones/joints: Unremarkable. No acute fracture. Soft tissues: Unremarkable. CT/CT head wo con* [id number] IMPRESSION: No acute intracranial abnormality. Radiation Dose CTDIVOL = (mGy): DLP = 878.71 (mGy-cm) Dictated By:Frame,KevinSigned By:Frame,KevinSigned Date/Time:05/17/21D/ 29 EKG Data^: EKG 1: Attestation: I personally reviewed and interpreted this EKG as follows: EKG interpretation date: 05/17/21 EKG interpretation time: 22:07 Prior EKG tracings: not available for review Interpretation: Sinus rhythm. Heart rate 63 bpm. Normal axis. No ST changes. EKG 2: Attestation: I personally reviewed and interpreted this EKG as follows: EKG interpretation date: 05/17/21 EKG interpretation time: 23:54 Prior EKG tracings: available for review Interpretation: Sinus rhythm. Heart rate 64 bpm. Normal axis. No ST changes. No significant change from earlier. Discharge Plan Discharge Patient Disposition: Home Clinical Impression: Memory loss UTI (urinary tract infection) Qualifiers: Urinary tract infection type: acute cystitis Hematuria presence: without hematuria Qualified Code(s): N30.00 - Acute cystitis without hematuria Condition: Stable Prescriptions: New Augmentin 500-125 mg tablet 1 tab PO BID Qty: 10 RF: 0 Continued calcium carbonate [Antacid (calcium carbonate)] 200 mg calcium (500 mg) tablet,chewable 400 mg PO BEDTIME RF: 0 Adult 50 Plus Probiotic 4 billion cell capsule 4,000 mmu cells PO DAILY RF: 0 albuterol sulfate [ProAir HFA] 90 mcg/actuation HFA aerosol inhaler 2 puff INHALATION Q4H PRN (Reason: shortness of breath or wheezing) Qty: 18 RF: 3 simvastatin 80 mg tablet 80 mg PO DAILY Qty: 90 RF: 3 celecoxib [Celebrex] 200 mg capsule 200 mg PO BID Qty: 60 RF: 8 lisinopril 20 mg tablet 20 mg PO BID Qty: 180 RF: 3 metoprolol succinate 50 mg tablet extended release 24 hr 50 mg PO DAILY Qty: 90 RF: 3 pantoprazole 40 mg tablet,delayed release (DR/EC) 40 mg PO DAILY Qty: 30 RF: 8 duloxetine 60 mg capsule,delayed release(DR/EC) 60 mg PO DAILY Qty: 30 RF: 3 clopidogrel 75 mg tablet 75 mg PO DAILY Qty: 90 RF: 3 tizanidine 2 mg tablet 2 mg PO BEDTIME PRN (Reason: muscle spasticity) RF: 0 trazodone 50 mg tablet 50 mg PO BEDTIME RF: 0 levothyroxine 25 mcg tablet 25 mcg PO DAILY RF: 0 furosemide 20 mg tablet 10 mg PO DAILY RF: 0 Discharge Orders: Discharge ED (Routine); Ordered 05/18/21 Ordered By: Chiqui Stevenson Referrals: Laurent Yao MD [Primary Care Provider] - 1-3 days Discharge Diet: Usual diet Discharge Activity: Increase activity as tolerated Patient Instructions: Urinary Tract Infection in Women (ED) Activity Restrictions/Additional Instructions: Return for any new or worsening symptoms. Follow-up with your primary care provider within 3 days. You will be contacted by the employment case manager to schedule an appointment with a neurologist. Take the antibiotic as prescribed. Coding Level of Care Code ED Flux Core Welder for Chg Fwd Exam Comprehensive
[2021-05-17 23:38] LABS: Alanine Aminotransferase 12 U/L (0-33); Albumin Level 4.1 g/dL (3.5-5.2); Alkaline Phosphatase 91 IU/L (35-105); Anion Gap 18.9 (5-19); Aspartate Amino Transferase 20 U/L (0-32); Blood Urea Nitrogen 14 mg/dL (8-23); C Reactive Protein 0.6 mg/L (0.0-4.9); Calcium 8.8 mg/dL (8.5-10.5); Carbon Dioxide 19 mmol/L (22-29); Chloride 94 mmol/L (98-107); Creatine Phosphokinase 83 U/L (26-192); Globulin 2.3 g/dL (1.3-4.6); Glucose 96 mg/dL (65-115); Osmolality Calculated 266 mOsm/kg (285-295); Potassium 3.9 mmol/L (3.5-5.1); Sodium 128 mmol/L (136-145); Total Bilirubin 0.5 mg/dL (0.15-1.2); Total Protein 6.4 g/dL (6.6-8.7)
--- NOTE | 2021-05-17 23:45 | ECG_ITS ---
[facility] Test Date: 2021-05-17 Pat Name: Marcy Byers Department: Room: Gender: Female Strategic Account Manager: : 1945 Requested By: Chiqui Stevenson I Order Number: [id number] Reading MD: FRANCESCO WATKINS Measurements Intervals [place] Rate: 64 P: 38 DE: 158 QRS: -5 QRSD: 86 T: 18 QT: 404 QTc: 418 Interpretive Statements SINUS RHYTHM Compared to ECG 05/17/2021 22:07:10 No significant changes Electronically Signed On 05-18-2021 19:28:20 CDT by FRANCESCO WATKINS [id number]
[2021-05-17] MEDS: cefTRIAXone 1,000 MG in sodium chloride 0.9% (plus) 50 ML 100 MG IV (23:50)
[2021-05-18 00:39] VITALS: BP 126/74; PULSE 61; RESP 18; O2SAT 97
[2021-05-18 00:40] VITALS: BP 126/74; PULSE 61; RESP 18; O2SAT 97
--- NOTE | 2021-05-21 14:56 | DCPLANNER ---
Addendum entered by Amy Hidalgo 06/20/21 15:29: Clinic stated that they would call patient with appointment information. Original Note: heavy equipment rental manager had message to schedule a follow up appointment for patient with neurology in [facility] or [place]. heavy equipment rental manager spoke with patient, she stated that she would like to follow up in [facility] if possible and if could not follow up in [facility] that she would like to follow up in [place]. There is not a neurologist in [facility]. heavy equipment rental manager called [facility] in [place], faxed patients information to the clinic.
== END 2021-05-18 00:41 | disposition home or self-care (01) ==
PROVIDERS: Emergency Provider Family Medicine; PCP Internal Medicine
DX: N30.00 Acute cystitis without hematuria (principal); R41.3 Other amnesia; I25.10 Atherosclerotic heart disease of native coronary artery without angina pectoris; I10 Essential (primary) hypertension; E78.5 Hyperlipidemia, unspecified; E03.9 Hypothyroidism, unspecified; Z87.891 Personal history of nicotine dependence; Z82.49 Family history of ischemic heart disease and other diseases of the circulatory system
CPT/HCPCS: 36415; 70450; 71045; 80053; 80306; 81001; 82550; 83880; 84145; 84443; 84484; 85025; 86140; 87086; 93005; 96365; 99284; J0696

== ENCOUNTER 2021-05-30 06:00 | Outpatient (RCR) | payer MEDICARE, OTHER, SELFPAY | END 2021-06-05 23:59 | disposition home or self-care (01) | LOC: SPT 06:00 | PROVIDERS: PCP Internal Medicine; Referring Provider Internal Medicine; Visit Provider Internal Medicine | DX: Z91.81 History of falling (principal) | CPT/HCPCS: 97110; 97112; 97162 ==

== ENCOUNTER 2021-06-06 06:00 | Outpatient (RCR) | payer MEDICARE, OTHER, SELFPAY | END 2021-07-05 23:59 | disposition home or self-care (01) | LOC: SPT 06:00 | PROVIDERS: PCP Internal Medicine; Referring Provider Internal Medicine; Visit Provider Internal Medicine | DX: M79.10 Myalgia, unspecified site (principal); W19.XXXA Unspecified fall, initial encounter | CPT/HCPCS: 97110; 97112 ==

== ENCOUNTER 2021-07-06 06:00 | Outpatient (RCR) | payer MEDICARE, OTHER, SELFPAY | END 2021-08-05 23:59 | disposition home or self-care (01) | LOC: SPT 06:00 | PROVIDERS: PCP Internal Medicine; Referring Provider Internal Medicine; Visit Provider Internal Medicine | DX: R29.6 Repeated falls (principal); R26.89 Other abnormalities of gait and mobility | CPT/HCPCS: 97110; 97112 ==

== ENCOUNTER 2021-07-19 11:02 | Outpatient (CLI) | payer MEDICARE, OTHER, SELFPAY ==
--- NOTE | 2021-07-19 11:09 | MM_ITS ---
WS: [id number] SCREENING DIGITAL MAMMOGRAM WITH CAD HISTORY: SCREENING COMPARISON: 12/14/2019, 09/17/2018 Bilateral CC and MLO views submitted. Computer aided detection analyzed. Breast composition: There are scattered areas of fibroglandular density. Irregular mass with calcific ations in the medial inferior RIGHT breast near 4:00 is new since the prior examination. Mild spicula tion and architectural distortion. No additional abnormality. MM/[place] [id number] IMPRESSION: BI-RADS: 0-Incomplete: Need additional imaging evaluation FOLLOW UP: Need Additional Imaging RIGHT breast: Spot compression views (CC and MLO). True ML. Ultrasound to follo w if abnormality persists.
== END 2021-07-19 11:03 | disposition home or self-care (01) ==
LOC: RADSHAW 11:06
PROVIDERS: PCP Internal Medicine; Visit Provider Internal Medicine
DX: Z12.31 Encounter for screening mammogram for malignant neoplasm of breast (principal)
CPT/HCPCS: 77067

== ENCOUNTER 2021-09-05 13:09 | Outpatient (CLI) | payer MEDICARE, OTHER, SELFPAY ==
--- NOTE | 2021-09-05 13:30 | USCV_ITS ---
Marcy Byers Age: 76 Gender: F : 1945 Exam Date: 09/05/2021 14:22 Ordering Phys: Scot Roberson MD ([email or web address]) Technologist: DANAE Exam Location: [facility] [place] Indication: DYSPNEA BP: 140 / 70 HR: 69 Rhythm: Sinus Technical Quality: Technically difficult study MEASUREMENTS (Male / Female) Normal Values 2D ECHO LV Diastolic Diameter PLAX 3.4 cm 4.2 - 5.9 / 3.9 - 5.3 cm LV Systolic Diameter PLAX 2.3 cm IVS Diastolic Thickness 0.7 cm 0.6 - 1.0 / 0.6 - 0.9 cm IVS Systolic Thickness 1.1 cm LVPW Diastolic Thickness 1.3 cm 0.6 - 1.0 / 0.6 - 0.9 cm LVPW Systolic Thickness 1.4 cm LVOT Diameter 2.0 cm LV Ejection Fraction 2D Teich 61.4 % LV Ejection Fraction MOD 2C 52.6 % LV Ejection Fraction 2C AL 51.7 % LA Diameter 3.3 cm LA Width 3.8 cm LA Height 4.1 cm RA Width 3.0 cm RA Height 4.3 cm Aorta at Sinotubular Diameter 2.3 cm M-MODE Aortic Annulus Diameter 1.9 cm LA Ao Ratio MM 1.3 DOPPLER AV Peak Velocity 145.0 cm/s LVOT Peak Velocity 101.0 cm/s AV Area Cont Eq vti 2.3 cm squared AV Area Cont Eq pk 2.2 cm squared MV Area PHT 3.6 cm squared Mitral E to A Ratio 0.8 MV E' Velocity 42.0 cm/s Mitral E to MV E' Ratio 10.5 Mitral E to LV E' Lateral Ratio 11.6 Mitral E to LV E' Septal Ratio 9.7 TR Peak Velocity 281.8 cm/s TR Peak Gradient 31.8 mmHg TR Mean Velocity 232.0 cm/s TR Mean Gradient 22.4 mmHg TR Velocity Time Integral 87.0 cm RV Acceleration Time 0.1 s RV Ejection Time 0.3 s RV AcT/ET 0.3 FINDINGS Left Ventricle Normal left ventricular size and systolic function, EF 58 %. No regional wall motion abnormalities. Grade I/IV diastolic dysfunction (abnormal relaxation filling pattern), normal to mildly elevated filling pressures. Right Ventricle The right ventricle is normal in size and function. Right Atrium The right atrium is normal in size. Left Atrium The left atrium is normal in size. Mitral Valve Trace mitral valve regurgitation. Aortic Valve Mild aortic valve regurgitation. Tricuspid Valve Mild tricuspid valve regurgitation. Pulmonic Valve No gross abnormalities noted Pericardium Normal pericardium without effusion. Aorta Normal ascending aorta dimension. CONCLUSIONS Normal left ventricular size and systolic function, EF 58 %. No regional wall motion abnormalities. Grade I/IV diastolic dysfunction (abnormal relaxation filling pattern), normal to mildly elevated filling pressures. Trace mitral valve regurgitation. Mild tricuspid valve regurgitation. Mild aortic valve regurgitation. Estimated pulmonary artery peak systolic pressure 37 mm Hg. There is no pericardial effusion. Compared to the study from 07/27/2018, there may not be a significant change Dr Scot Roberson MD [facility] (Electronically Signed) Final Date: 05 September 2021 19:18 S
--- NOTE | 2021-09-05 14:15 | USCV_ITS ---
Marcy Byers Age: 76 Gender: F : 1945 Exam Date: 09/05/2021 13:59 Ordering Phys: Scot Roberson MD ([email or web address]) Technologist: Anil Perry Exam Location: [facility] [place] Indication: Risk Factors: Previous Vascular Surgery: Right Brachial BP: / Left Brachial BP: / Right Left Velocity (cm/s) Spectral Plaque Velocity (cm/s) Spectral Plaque Syst/Diast Broadening Syst/Diast Broadening 82.10/ 6.10 Prox CCA 76.00 / 10.10 72.20/ 11.70 Mid CCA 72.80 / 16.50 66.00/ 15.50 Distal CCA 73.00 / 12.40 63.70/ 11.70 Prox ICA 69.10 / 19.40 58.30/ 20.20 Mid ICA 113.60/ 25.60 86.50/ 18.60 Distal ICA 109.40/ 29.90 148.80 ECA 97.90 0.81 ICA/CCA 1.56 Antegrade Vertebral Antegrade 34.20/ 8.50 cm/s 44.30/ 11.70 cm/s Tri Subclavian Bi 135.6 100.2 0 0 FINDINGS Minimal plaques bilaterally the bifurcations and internal carotid arteries. Antegrade flow in the vertebral arteries bilaterally. Normal Doppler flow velocities in the subclavian arteries bilaterally CONCLUSIONS Minimal plaques bilaterally at the bifurcations and internal carotid arteries suggesting less than 50% stenosis . Intimal thickening in the common carotid arteries bilaterally. No significant stenosis, based on the above findings Dr Scot Roberson MD [facility] (Electronically Signed) Final Date: 06 September 2021 20:27 S
== END 2021-09-05 13:10 | disposition home or self-care (01) ==
LOC: RAD 13:13
PROVIDERS: PCP Internal Medicine; Visit Provider Internal Medicine Cardiovascular Disease
DX: R06.00 Dyspnea, unspecified (principal); I77.9 Disorder of arteries and arterioles, unspecified; G45.9 Transient cerebral ischemic attack, unspecified; I08.3 Combined rheumatic disorders of mitral, aortic and tricuspid valves
CPT/HCPCS: 93306; 93880

== ENCOUNTER 2021-09-06 08:33 | Outpatient (CLI) | payer MEDICARE, OTHER, SELFPAY ==
--- NOTE | 2021-09-06 09:01 | US_ITS ---
WS: [id number] ADDITIONAL VIEWS RIGHT BREAST RIGHT breast ultrasound, limited HISTORY: R92.8 - Other abnormal and inconclusive findings on screening mammogram. COMPARISON: 07/19/2021, 12/14/2019 and 09/17/2018 Compression views right CC and MLO projection. True ML also submitted. Persistent ovoid mass with calcifications in the RIGHT breast measuring 17 x 10 mm. Mass is along the inferior and lateral RIGHT breast. There are associated calcifications which extend along a linear d istribution and these are pleomorphic. There is additional soft tissue extending anteriorly towards t he nipple. RIGHT breast ultrasound, limited. Ill-defined area of architectural distortion with mild increased vascularity in the RIGHT breast terry g the 8-9 o'clock axis. Focal area at 8:00, 3 cm from the nipple corresponds to the larger mass with calcification measuring 1.4 x 1.2 x 1.6 cm on mammography. There is an additional increased soft tiss ue with shadowing extending towards the nipple on the RIGHT. US/US breast RT limited* [id number] IMPRESSION: BI-RADS: 4-Suspicious Finding-Biopsy Should Be Considered FOLLOW-UP: Biopsy Recommended Ultrasound-guided biopsy recommended of the suspicious mass at 8-9 o'clock of t he RIGHT breast. Suspect there may be ductal involvement also extending towards the nipple along the 9:00 axis. Notified Laurent Yao MD at 09/06/2021 10:44 AM.
== END 2021-09-06 08:34 | disposition home or self-care (01) ==
LOC: RADSHAW 08:40
PROVIDERS: PCP Internal Medicine; Visit Provider Internal Medicine
DX: R92.8 Other abnormal and inconclusive findings on diagnostic imaging of breast (principal); N63.15 Unspecified lump in the right breast, overlapping quadrants
CPT/HCPCS: 76642; 77065

== ENCOUNTER 2021-10-04 07:56 | Outpatient (CLI) | payer MEDICARE, OTHER, SELFPAY ==
--- NOTE | 2021-10-04 08:45 | US_ITS ---
WS: [id number] ULTRASOUND-GUIDED RIGHT BREAST BIOPSY CLINICAL INFORMATION: R92.8 - Other abnormal and inconclusive findings on diagn... COMPARISON: None. FINDINGS: The procedure including risks, benefits, and complications were discussed with the patient who agreed to proceed. Using sterile technique patient was prepped and draped in the usual sterile fashion. Aft er 1% lidocaine utilizing real-time ultrasound guidance 14-gauge cores were obtained of the right ace ast lesion at the 8 o'clock position. Subsequently a titanium clip was placed in the biopsy cavity. Next the 9:00 lesion near the nipple was selected. After 1% lidocaine,utilizing real-time ultrasound guidance 5 14-gauge cores were obtained of the right breast lesion at the 9 o'clock position. Subsequ ently a titanium clip was placed in the biopsy cavity. No immediate complications. Pathology demonstrates A. Breast, right, 8 o'clock, 3 cm from nipple lesion , ultrasound-guided biopsy: -Benign breast tissue with chronic inflammation and stromal sclerosis. -No malignancy identified. B. Breast, right, 9 o'clock subareolar , ultrasound-guided biopsy: -Benign breast tissue with fibrocystic changes and stromal sclerosis. -Small focus of usual ductal hyperplasia and columnar changes. -No atypia, DCIS or invasive carcinoma identified. -No malignancy identified. US/[place] [id number] IMPRESSION: 1. Uncomplicated ultrasound-guided right breast biopsy. Biopsies performed at the 8:00 and 9:00 position. 2. Despite the above pathology, imaging findings remain suspicious with a mass like spiculated appearance and increasing calcifications. THEREFORE, RECOMMEND BREAST SURGERY CONSULTATION FOR RESECTION. BI-RADS: 4-Suspicious Finding-Biopsy Should Be Considered FOLLOW UP: Surgical Biopsy Recommended
== END 2021-10-04 07:57 | disposition home or self-care (01) ==
LOC: RAD 07:58
PROVIDERS: PCP Internal Medicine; Visit Provider Internal Medicine
DX: N63.15 Unspecified lump in the right breast, overlapping quadrants (principal); N63.13 Unspecified lump in the right breast, lower outer quadrant
CPT/HCPCS: 19083; 19084; 88305

== ENCOUNTER → 2022-01-15 10:11 | Outpatient (BNVA) | payer MEDICARE, SELFPAY | PROVIDERS: PCP Internal Medicine; Visit Provider Internal Medicine Cardiovascular Disease | DX: I25.10 Atherosclerotic heart disease of native coronary artery without angina pectoris (principal); E78.2 Mixed hyperlipidemia; Z87.891 Personal history of nicotine dependence; I10 Essential (primary) hypertension; E03.9 Hypothyroidism, unspecified; Z86.73 Personal history of transient ischemic attack (TIA), and cerebral infarction without residual deficits; R06.02 Shortness of breath; I49.3 Ventricular premature depolarization; I49.49 Other premature depolarization | CPT/HCPCS: 93005; 93270; 99214 ==

== ENCOUNTER 2022-04-26 07:27 | Outpatient (CLI) | payer MEDICARE, OTHER, SELFPAY ==
[2022-04-26 08:00] VITALS: BMI 33.3
--- NOTE | 2022-04-26 08:03 | NMCV_ITS ---
NM tram perf SPECT r/s* [id number] Marcy Byers Age: 77 Gender: F : 1945 Exam Date: 04/26/2022 09:00 Ordering Phys: Scot Roberson MD ([email or web address]) Technologist: ANA Sloan Exam Location: [facility] Indications: CAD STRESS TEST [facility] IMAGE PROTOCOL Rest/Stress 1 Lexiscan Day Radiopharmaceutical Dose (mCi) Administration Site Administered by Rest: Tc-99m 10.6 IV AAN Hawk Sestamibi Stress:Tc-99m 32.5 IV ANA Hawk Sestamibi Rest: 26-Apr-2022 60 Discovery 630 Stress: 26-Apr-2022 30 Discovery 630 0.4mg Lexiscan. Images obtained in supine and prone position. SPECT RESULTS Technical Quality: Excellent Raw Data Analysis: Normal Image Corrections: No attenuation or motion correction applied Summed Stress Score: 2 Summed Rest Score: 0 Summed Difference Score: 2 PERFUSION FINDINGS A small area of slightly decreased tracer uptake was noted in the mid inferolateral and apical lateral regions, with the supine imaging. Some reversibility was noted in this area at rest. However with the prone imaging, there is no significant reperfusion abnormalities. FUNCTIONAL RESULTS (calculated via Gated SPECT) Stress Image LV EF (%): 85 Stress EDV (mL):67 TID: 1.07 Stress ESV (mL):10 FUNCTIONAL FINDINGS: Segmental wall motion analysis revealing no gross wall motion abnormalities. IMPRESSIONS 1. Myocardial perfusion imaging revealing a small area of inconsistent reversible defect in the inferolateral and apical lateral regions, suggestive of ischemia in the distribution of the left circumflex artery. However because of the inconsistency, the reliability of the finding is questionable. 2. Normal LV ejection fraction of 85%. 3. Segmental wall motion analysis revealing no gross wall motion abnormalities 4. Normal LV volume No similar previous studies are available for comparison . Clinical correlation is recommended Dr Scot Roberson MD FACC (Electronically Signed) Final Date: 26 April 2022 20:32 S
--- NOTE | 2022-04-26 08:03 | ECG_ITS ---
[facility] Test Date: 2022-04-26 Pat Name: Marcy Byers Department: Room: Gender: Female Staff Trainer: Ramona Rodriguez : 1945 Requested By: Scot Roberson Order Number: [id number] [place] MD: Scot Roberson M.D. Interpretive Statements NAME OF STUDY: LEXISCAN SESTAMIBI STRESS TEST INDICATION: Chest Pain, PROCEDURE: At the baseline, the EKG revealed normal sinus rhythm with a normal ST Ts. Possible old inferior wall IN. The baseline blood pressure was 154/76 mm Hg with a heart rate of 73 beats/min. Lexiscan was infused over a period of 20 seconds. A total of 0.4 milligrams of Lexiscan was infused. The stress phase was continued for a total of 5 minutes. Heart rate at the end of the stress phase was 90 with a blood pressure 141/86. The EKG at the peak infusion revealed no significant changes. Sestamibi was injected 20 seconds after the Lexiscan infusion. Blood pressure at the end of the recovery phase was 132/83 with a heart rate of 87 per minute. CONCLUSION: 1. No significant EKG changes with the LexiScan infusion 2. No LexiScan induced chest pain or cardiac arrhythmia 3. Normal blood pressure and heart rate response 4. Sestamibi/sestamibi perfusion scan pending; see separate report. Electronically Signed On 04-26-2022 15:37:19 CDT by Scot Roberson M.D. [id number]
[2022-04-26 09:40] VITALS: BP 132/83; PULSE 89
--- NOTE | 2022-04-26 10:06 | ECG_ITS ---
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 Measurements Intervals [place] Rate: 76 P: 28 NH: 167 QRS: -1 QRSD: 81 T: 31 QT: 366 QTc: 412 Interpretive Statements SINUS RHYTHM POSSIBLE ANTERIOR MYOCARDIAL INFARCTION , OF INDETERMINATE AGE [30 ms Q WAVE IN V3/V4, OR R < 0.2 mV IN V4] Compared to ECG 05/17/2021 23:54:47 Myocardial infarct finding now present Electronically Signed On 04-26-2022 20:30:17 CDT by Hua Kilgore M.D. [id number]
== END 2022-04-26 07:28 | disposition home or self-care (01) ==
LOC: CDL 07:33
PROVIDERS: PCP Internal Medicine; Visit Provider Internal Medicine Cardiovascular Disease
DX: I25.10 Atherosclerotic heart disease of native coronary artery without angina pectoris (principal)
CPT/HCPCS: 78452; 93005; 93017; A9500

== ENCOUNTER → 2022-05-14 15:48 | Outpatient (BNVA) | payer MEDICARE, OTHER, SELFPAY | PROVIDERS: PCP Internal Medicine; Visit Provider Internal Medicine | DX: E78.2 Mixed hyperlipidemia (principal); I10 Essential (primary) hypertension; E03.9 Hypothyroidism, unspecified; K92.1 Melena; M79.10 Myalgia, unspecified site | CPT/HCPCS: 80053; 85025; 85651 ==

== ENCOUNTER → 2022-07-11 10:19 | Outpatient (BNVA) | payer MEDICARE, SELFPAY | PROVIDERS: PCP Internal Medicine; Visit Provider Internal Medicine Cardiovascular Disease | DX: I25.118 Atherosclerotic heart disease of native coronary artery with other forms of angina pectoris (principal); E78.2 Mixed hyperlipidemia; I10 Essential (primary) hypertension; E03.9 Hypothyroidism, unspecified; Z86.73 Personal history of transient ischemic attack (TIA), and cerebral infarction without residual deficits; Z87.891 Personal history of nicotine dependence; Z95.5 Presence of coronary angioplasty implant and graft | CPT/HCPCS: 99214 ==

== ENCOUNTER → 2023-07-23 13:10 | Outpatient (BNVA) | payer MEDICARE, SELFPAY | PROVIDERS: PCP Internal Medicine; Visit Provider Dermatology | DX: Z85.828 Personal history of other malignant neoplasm of skin (principal); L21.8 Other seborrheic dermatitis; L82.1 Other seborrheic keratosis; L81.4 Other melanin hyperpigmentation; D22.39 Melanocytic nevi of other parts of face; L72.0 Epidermal cyst | CPT/HCPCS: 99214 ==

== ENCOUNTER 2023-09-12 14:43 | Outpatient (CLI) | payer MEDICARE, SELFPAY ==
--- NOTE | 2023-09-12 14:52 | MM_ITS ---
WS: [id number] BILATERAL 3D TOMOSYNTHESIS DIGITAL SCREENING MAMMOGRAM WITH CAD CLINICAL INFORMATION: SCREENING HISTORY: Screening mammogram. RIGHT breast pain and nipple discharge. History of RIGHT breast biopsy with benign findings, however surgical resection was recommended due to the mammographic appearance a nd increasing pleomorphic calcifications COMPARISON: 09/06/2021 TECHNIQUE: Bilateral CC and MLO. FINDINGS: Scattered areas of fibroglandular density bilaterally. Increasing nodularity subareolar RIGHT breast similar in distribution to the prior examination. Increasing pleomorphic calcifications throughout th is region with a suspicious appearance. Recommend further evaluation with RIGHT breast diagnostic beni mography and ultrasound. In addition, recommend RIGHT breast subareolar ultrasound for RIGHT nipple discharge. Increasing suba reolar nodular density with new pleomorphic calcifications RIGHT breast. Nodular density measures 11 mm. Vascular calcifications. Biopsy markers RIGHT breast. LEFT breast appears unchanged. IMPRESSION: MM/[place] [id number] BI-RADS: 0-Incomplete: Need additional imaging evaluation FOLLOW UP: Need Additional Imaging Recommend RIGHT breast diagnostic mammography and ultrasound.
== END 2023-09-12 14:44 | disposition home or self-care (01) ==
LOC: RAD 14:44
PROVIDERS: PCP Internal Medicine; Visit Provider Family Medicine
DX: Z12.31 Encounter for screening mammogram for malignant neoplasm of breast (principal)
CPT/HCPCS: 77063; 77067

== ENCOUNTER 2023-10-17 08:12 | Outpatient (CLI) | payer MEDICARE, SELFPAY ==
--- NOTE | 2023-10-17 08:18 | US_ITS ---
WS: [id number] RIGHT UPPER QUADRANT ULTRASOUND HISTORY: NAUSEA/VOMITING COMPARISON: 04/01/2011 Liver: 13.9 cm in length. Normal size liver and echogenicity. No bile duct dilatation or mass. Portal Vein: Normal hepatopetal flow with monophasic waveform. Gallbladder: Normally distended gallbladder with no stones or wall thickening. CBD: 0.8 cm Pancreas: Normal size and echogenicity. Right kidney: 9.1 cm in length. Low normal size kidney. Mild diffuse cortical atrophy and increased e chogenicity. Aorta and IVC: Unremarkable abdominal aorta and IVC. No ascites. IMPRESSION: 1. Normal gallbladder. 2. Mildly dilated common bile duct is similar to the prior study from 2010. 3. Mild chronic medical renal disease RIGHT kidney.
== END 2023-10-17 08:13 | disposition home or self-care (01) ==
LOC: RAD 08:12
PROVIDERS: PCP Internal Medicine; Visit Provider Family Medicine
DX: R11.2 Nausea with vomiting, unspecified (principal)
CPT/HCPCS: 76705

== ENCOUNTER 2023-11-03 12:52 | Outpatient (CLI) | payer MEDICARE, SELFPAY ==
--- NOTE | 2023-11-03 12:55 | MM_ITS ---
WS: [id number] RIGHT 3D TOMOSYNTHESIS DIGITAL MAMMOGRAPHY WITH CAD CLINICAL INFORMATION: ABNORMAL MAMMO HISTORY: RIGHT nipple discharge. Additional views for calcifications. COMPARISON: 09/12/2023 TECHNIQUE: 3 views of the right breast were obtained. FINDINGS: The right breast is composed of heterogeneous fibroglandular density tissue, which can limit the dete ction of small underlying mass lesions. Again seen are the suspicious pleomorphic calcifications suba reolar RIGHT breast which have increased since 2020. Stable subareolar nodular density measures 11 mm . Prior biopsy marker adjacent to this area. Ultrasound of this area is pending. ULTRASOUND BREAST RIGHT TECHNIQUE: Ultrasound right breast focused area of concern. CLINICAL INFORMATION: ABNORMAL MAMMO COMPARISON ULTRASOUND 09/06/2021 FINDINGS: Irregular dense shadowing tissue posterior to the areola in the area of the pleomorphic calcification s. Calcifications are visualized in this area. Recommend further evaluation with ultrasound-guided bi opsy. IMPRESSION: MM/[place] [id number] BI-RADS: 4-Suspicious Finding-Biopsy Should Be Considered FOLLOW UP: US Guided Biopsy Recommended
== END 2023-11-03 12:53 | disposition home or self-care (01) ==
LOC: RAD 12:52
PROVIDERS: PCP Internal Medicine; Visit Provider Family Medicine
DX: R92.8 Other abnormal and inconclusive findings on diagnostic imaging of breast (principal); N64.4 Mastodynia; N64.52 Nipple discharge; R92.321 Mammographic fibroglandular density, right breast; R92.1 Mammographic calcification found on diagnostic imaging of breast; N63.41 Unspecified lump in right breast, subareolar
CPT/HCPCS: 76642; 77061; G0279

== ENCOUNTER 2023-12-10 13:07 | Outpatient (CLI) | payer MEDICARE, SELFPAY ==
--- NOTE | 2023-12-10 13:13 | US_ITS ---
WS: [id number] ULTRASOUND-GUIDED RIGHT BREAST BIOPSY HISTORY: RIGHT breast mass subareolar. COMPARISON: 11/03/2023 Procedure, risks and complications are explained to the patient. Medications are reviewed. Consent is obtained. The mass in the RIGHT breast is localized with ultrasound. 6 subareolar breast mass. Skin is cleansed with ChloraPrep and anesthetized with 1% buffered lidocaine. Small dermatome is made. Under sterile conditions mass is biopsied with a 14-gauge Achieve needle. Multiple core biopsies are performed. Mat erial placed in formalin and sent to pathology for review. No complications encountered. Breast tissue marker ([employer] ultrasound enhanced ribbon): Single. Patient left the radiology suite with no complications. Patient is instructed to return to [facility] with any concerns. IMPRESSION: 1. Uncomplicated core needle biopsy RIGHT breast subareolar mass. US/[place] [id number] PATHOLOGY: Ductal carcinoma in situ, comedo and solid types, with focal canceri zation of lobular units. Please see the entire report for further details. Mell naranjo prognostic profile is pending. RECOMMENDATION: Follow-up with breast surgeon and oncology.
[2023-12-18 12:38] LABS: Breast Profile ER,PR,HER2,Ki-6 See Report
== END 2023-12-10 13:08 | disposition home or self-care (01) ==
LOC: RAD 13:07
PROVIDERS: PCP Internal Medicine; Visit Provider Family Medicine
DX: D05.91 Unspecified type of carcinoma in situ of right breast (principal)
CPT/HCPCS: 19083; 88305; 88361; 88374

== ENCOUNTER 2024-01-01 09:49 | Oncology outpatient (recurring) (ONCR) | payer MEDICARE, SELFPAY ==
[2024-01-01 11:22] LABS: Basophils # 0.1 10^3/uL (0.0-0.1); Basophils % 0.8 %; Eosinophils # 0.4 10^3/uL (0.0-0.8); Eosinophils % 6.3 %; Hematocrit 38.7 % (36-47); Lymphocytes # 1.5 10^3/uL (0.8-4.8); Lymphocytes % 24.7 %; Mean Corpuscular HGB Conc 33.3 g/dL (30-55); Mean Corpuscular Hemoglobin 29.6 pg (27-33); Mean Corpuscular Volume 88.8 fl (85-98); Mean Platelet Volume 11.2 fL (7.4-10.4); Monocytes # 0.5 10^3/uL (0.2-0.9); Monocytes % 8.7 %; Neutrophils % 59.2 %; Nucleated Red Blood Cells % 0 %; Platelet Count 207 10^3/cmm (157-399); Red Blood Count 4.36 10^6/uL (3.85-5.65); White Blood Count 6.24 10^3/uL (3.29-11.43)
[2024-01-01 11:39] LABS: Alanine Aminotransferase 8 U/L (0-33); Albumin Level 4.4 g/dL (3.5-5.2); Alkaline Phosphatase 107 U/L (35-105); Anion Gap 17.4 (5-19); Aspartate Amino Transferase 15 U/L (0-32); Blood Urea Nitrogen 27 mg/dL (8-23); Calcium 9.5 mg/dL (8.5-10.5); Carbon Dioxide 23 mmol/L (22-29); Chloride 101 mmol/L (98-107); Creatinine Clr Calc Pharmacy 32.6859; Globulin 2.8 g/dL (1.3-4.6); Glucose 95 mg/dL (65-115); Osmolality Calculated 289 mOsm/kg (285-295); Potassium 4.4 mmol/L (3.5-5.1); Sodium 137 mmol/L (136-145); Total Bilirubin 0.5 mg/dL (0.15-1.2); Total Protein 7.2 g/dL (6.6-8.7)
[2024-01-01 12:30] LABS: Hepatitis A Antibody IgM Equivocal (Nonreactive); Hepatitis B Core AB, Total Non-Reactive (Nonreactive); Hepatitis B Surface AB < 3.5 (11.5-1000); Hepatitis B Surface Antigen Non-Reactive (Nonreactive); Hepatitis C Virus Antibody Non-Reactive (Nonreactive)
== END 2024-01-04 23:59 | disposition home or self-care (01) ==
PROVIDERS: PCP Internal Medicine; Visit Provider Internal Medicine
DX: D05.11 Intraductal carcinoma in situ of right breast (principal); Z79.899 Other long term (current) drug therapy
CPT/HCPCS: 36415; 80053; 85025; 86705; 86706; 86709; 86803; 87340; 99204

== ENCOUNTER → 2024-01-22 14:39 | Outpatient (BNVA) | payer MEDICARE, SELFPAY | PROVIDERS: PCP Internal Medicine; Visit Provider Internal Medicine Cardiovascular Disease | DX: R07.9 Chest pain, unspecified (principal); I44.5 Left posterior fascicular block; I25.118 Atherosclerotic heart disease of native coronary artery with other forms of angina pectoris; I10 Essential (primary) hypertension; Z86.73 Personal history of transient ischemic attack (TIA), and cerebral infarction without residual deficits; Z87.891 Personal history of nicotine dependence; R94.31 Abnormal electrocardiogram [ECG] [EKG] | CPT/HCPCS: 93005; 99214 ==

== ENCOUNTER 2024-02-02 14:18 | Outpatient (CLI) | payer MEDICARE, SELFPAY ==
--- NOTE | 2024-02-02 14:45 | USCV_ITS ---
Marcy Byers Age: 78 Gender: F : 1945 Exam Date: 02/02/2024 14:45 Ordering Phys: Scot Roberson MD ([email or web address]) Technologist: CT Exam Location: [facility] Indication: sob BP: 130 / 84 HR: 70 Rhythm: Sinus Technical Quality: Adequate MEASUREMENTS (Male / Female) Normal Values 2D ECHO LVOT Diameter 2.0 cm LV Ejection Fraction MOD 2C 57.8 % LV Ejection Fraction 2C AL 58.3 % LA Diameter 2.9 cm RA Systolic Volume 4C AL 18.8 ml RA Systolic Volume 4C MOD 18.2 ml LA Sys Volume AL 37.1 cm cubed LA Sys Volume Index AL 15.1 cm cubed/m squared Aorta at Sinotubular Diameter 2.4 cm M-MODE LA Ao Ratio MM 1.4 AV Cusp Separation MM 1.9 cm DOPPLER AV Peak Velocity 134.0 cm/s LVOT Peak Velocity 88.0 cm/s AV Area Cont Eq vti 2.4 cm squared AV Area Cont Eq pk 2.1 cm squared MV Peak Velocity 109.0 cm/s MV Area PHT 3.8 cm squared Mitral E to A Ratio 0.7 TR Peak Velocity 302.0 cm/s TR Peak Gradient 36.5 mmHg TV Peak E Velocity 60.0 cm/s Right Atrial Pressure 3.0 mmHg Pulmonary Artery Systolic Pressu 39.5 mmHg PV Peak Velocity 90.0 cm/s FINDINGS Left Ventricle Normal left ventricular size and systolic function, EF 58%. Grade I/IV diastolic dysfunction (abnormal relaxation filling pattern), normal to mildly elevated filling pressures. Right Ventricle The right ventricle is normal in size and function. Right Atrium The right atrium is normal in size. Left Atrium Mildly increased left atrial size. Mitral Valve No gross abnormalities noted Aortic Valve Thickened aortic valve. Trace to mild aortic valve regurgitation. Tricuspid Valve Mild tricuspid valve regurgitation. Pulmonic Valve No gross abnormalities noted Pericardium Normal pericardium without effusion. Aorta Normal ascending aorta dimension. IVC The inferior vena cava appears normal. CONCLUSIONS Normal left ventricular size and systolic function, EF 58%. Grade I/IV diastolic dysfunction (abnormal relaxation filling pattern), normal to mildly elevated filling pressures. Thickened aortic valve. Trace to mild aortic valve regurgitation. Mild tricuspid valve regurgitation. There is no pericardial effusion. There are no intracardiac masses. No similar previous studies are available for comparison Dr Scot Roberson MD FACC (Electronically Signed) Final Date: 05 Feb 2024 21:33 S
== END 2024-02-02 14:19 | disposition home or self-care (01) ==
LOC: RAD 14:19
PROVIDERS: PCP Internal Medicine; Visit Provider Internal Medicine Cardiovascular Disease
DX: R06.09 Other forms of dyspnea (principal); I07.1 Rheumatic tricuspid insufficiency
CPT/HCPCS: 93306

== ENCOUNTER 2024-03-17 13:22 | Oncology outpatient (recurring) (ONCR) | payer MEDICARE, SELFPAY ==
[2024-03-17 14:30] LABS: Basophils % 0.4 %; Eosinophils # 0.5 10^3/uL (0.0-0.8); Eosinophils % 5.3 %; Hematocrit 31.6 % (36-47); Lymphocytes # 2.4 10^3/uL (0.8-4.8); Lymphocytes % 25.4 %; Mean Corpuscular HGB Conc 33.5 g/dL (30-55); Mean Corpuscular Hemoglobin 29.7 pg (27-33); Mean Corpuscular Volume 88.5 fl (85-98); Mean Platelet Volume 10.7 fL (7.4-10.4); Monocytes # 0.7 10^3/uL (0.2-0.9); Monocytes % 7.8 %; Neutrophils # 5.71 10^3/uL (1.8-7.7); Neutrophils % 60.8 %; Nucleated Red Blood Cells % 0 %; Platelet Count 299 10^3/cmm (157-399); Red Blood Count 3.57 10^6/uL (3.85-5.65); Red Cell Distribution Width 12.3 % (12.1-15.1)
[2024-03-17 14:50] LABS: Alanine Aminotransferase 9 U/L (0-33); Albumin Level 3.9 g/dL (3.5-5.2); Alkaline Phosphatase 110 U/L (35-105); Anion Gap 20.5 (5-19); Aspartate Amino Transferase 16 U/L (0-32); Blood Urea Nitrogen 13 mg/dL (8-23); Calcium 9.2 mg/dL (8.5-10.5); Carbon Dioxide 20 mmol/L (22-29); Chloride 94 mmol/L (98-107); Globulin 2.5 g/dL (1.3-4.6); Glucose 111 mg/dL (65-115); Osmolality Calculated 271 mOsm/kg (285-295); Potassium 4.5 mmol/L (3.5-5.1); Sodium 130 mmol/L (136-145); Total Bilirubin 0.3 mg/dL (0.15-1.2); Total Protein 6.4 g/dL (6.6-8.7)
== END 2024-04-04 23:59 | disposition home or self-care (01) ==
PROVIDERS: Nurse Practitioner Family; PCP Internal Medicine; Visit Provider Internal Medicine
DX: D05.11 Intraductal carcinoma in situ of right breast (principal)
CPT/HCPCS: 36415; 80053; 85025

== ENCOUNTER → 2024-04-21 11:08 | Outpatient (BNVA) | payer MEDICARE, SELFPAY | PROVIDERS: PCP Family Medicine; Visit Provider Nurse Practitioner Family | DX: I10 Essential (primary) hypertension (principal); I25.10 Atherosclerotic heart disease of native coronary artery without angina pectoris | CPT/HCPCS: 99213 ==

== ENCOUNTER 2024-04-22 05:47 | Day surgery (SDC) | payer MEDICARE, SELFPAY ==
[2024-04-22] VITALS (8 sets, daily range): BP systolic 109–154; BP diastolic 54–100; PULSE 67–78; RESP 10–18; TEMP 36.2–36.9; O2SAT 92–100; BMI 27.9
--- NOTE | 2024-04-22 06:03 | XRR_ITS ---
PROCEDURE INFORMATION: Exam: XR Chest Exam date and time: 04/22/2024 9:12 AM Age: 79 years old Clinical indication: Device placement; Other: Mediport placement; Prior surgery; Surgery date: Post-operative (0-2 days); Additional info: Postop mediport placement TECHNIQUE: Imaging protocol: Radiologic exam of the chest. Views: 1 view. Total images: 2 COMPARISON: CT chest abdpel w/*[id number] 04/19/2024 12:33 PM FINDINGS: Tubes, catheters and devices: Left Port-A-Cath catheter with tip in the SVC. No pneumothorax. Lungs: Surgical clip projecting in the left suprahilar area. Pleural spaces: See Tubes, catheters and devices finding. Heart/Mediastinum: Unremarkable. No cardiomegaly. Bones/joints: Unremarkable. Soft tissues: Few surgical clips noted within the chest wall bilaterally. XR/XR chest 1V portable [id number] IMPRESSION: Left Port-A-Cath catheter with tip in the SVC. No pneumothorax.
--- NOTE | 2024-04-22 06:03 | SC_ITS ---
WS: [email or web address] INTRAOPERATIVE TECHNIQUE: 2 Spot fluoroscopic images for intraoperative purposes. FLUOROSCOPY TIME: 2.0 seconds CLINICAL INFORMATION: Mediport placement FINDINGS: LEFT port cath with tip in the distal SVC. No visualized pneumothorax. SC/C-arm FL for CVA [id number] IMPRESSION: Images obtained for intraoperative purposes.
[2024-04-22] MEDS: sodium chloride 0.9% 1,000 ML 30 ML IV (06:29)
--- NOTE | 2024-04-22 07:15 | ANES.PREANE2 ---
Pre-Anesthetic Assessment Height/Weight: Height 1.68 m Weight 78.471 kg Temp Pulse Resp BP Pulse Ox O2 Del Method 98.4 F 76 18 154/100 99 Room Air 04/22/24 06:16 04/22/24 06:16 04/22/24 06:16 04/22/24 06:16 04/22/24 06:16 04/22/24 06:17 Operation Date: 04/22/24 08:15 Proposed Procedures p Portacath Placement 02383, Z95.828, D05.11(Not Applicable) - Ton Armas DO Familial anesthetic complications: none Was Beta True taken within 24 hours: N/A Was Clonidine taken within 24 hours: N/A Last intake: Intake Last Liquid Date 04/21/24 Last Liquid Time 19:00 Last Solid Date 04/21/24 Last Solid Time 17:00 Social No alcohol and No tobacco Exam alert, oriented x 3, clear to auscultation bilaterally and regular rate & rhythm Airway Mallampati: Class I Dentition: other (no teeth) Pulmonary Asthma CV/HEM Coronary Artery Disease and Hypertension GI Gastroesophageal Reflux Disease and Peptic Ulcer Disease Metabolic Hyperlipidemia and Thyroid Disease Neuropsych Cerebrovascular Accident Anesthetic Plan ASA status: 4 Anesthesia: MAC Risk of > 500 ml blood loss (7ml/kg in children): No Medications/Allergies Home Medications Medication Instructions Recorded Confirmed Last Taken Type calcium carbonate (Antacid 400 mg PO BEDTIME 10/19/19 04/21/24 05/16/21 History (calcium carbonate)) lactobacillus combination no.9 4 4,000 mmu cells PO DAILY 01/08/21 04/21/24 05/17/21 History billion cell capsule (Adult 50 Plus Probiotic) albuterol sulfate 90 mcg/actuation 2 puff inhalation Q6H PRN 09/03/21 04/22/24 04/22/24 06:08 Rx aerosol inhaler (Ventolin HFA) shortness of breath or wheezing #8.5 grams pantoprazole 40 mg tablet,delayed 40 mg PO DAILY #30 tabs 01/07/22 04/21/24 04/21/24 Rx release lisinopril 20 mg tablet 20 mg PO DAILY 01/15/22 04/21/24 04/21/24 History magnesium L-lactate 84 mg 84 mg PO BID #180 tabs 02/25/22 04/21/24 04/21/24 Rx tablet,extended release (Magtab) simvastatin 80 mg tablet 80 mg PO DAILY #90 tabs 03/13/22 04/21/24 04/21/24 Rx nitroglycerin 0.4 mg sublingual 0.4 mg sublingual Q5M PRN chest 03/21/22 04/21/24 Unknown Rx tablet (Nitrostat) pain #50 tabs clopidogrel 75 mg tablet 75 mg PO DAILY #90 tabs 05/13/22 04/21/24 04/18/24 Rx duloxetine 60 mg capsule,delayed 60 mg PO DAILY #30 caps 06/03/22 04/21/24 04/21/24 Rx release tizanidine 2 mg tablet 2 mg PO BEDTIME PRN muscle 06/11/22 04/21/24 04/21/24 Rx spasticity #30 tabs levothyroxine 25 mcg tablet 25 mcg PO DAILY #90 tabs 07/15/22 04/21/24 04/21/24 Rx trazodone 50 mg tablet 50 mg PO BEDTIME #90 tabs 07/15/22 04/21/24 04/21/24 Rx furosemide 20 mg tablet See Rx Instructions .Route 08/16/22 04/21/24 04/21/24 Rx .COMPLEX #15 tabs latanoprost 0.005 % eye drops 1 drp ophthalmic (eye) DAILY 01/01/24 04/21/24 04/21/24 History isosorbide mononitrate 30 mg 30 mg PO DAILY #30 tabs 01/22/24 04/21/24 04/21/24 Rx tablet,extended release 24 hr ferrous sulfate 325 mg (65 mg 325 mg PO .qod #30 tabs 04/07/24 04/21/24 04/21/24 Rx iron) tablet metoprolol tartrate 50 mg tablet 50 mg PO DAILY 04/21/24 04/21/24 04/21/24 History Allergies Allergy/AdvReac Type Severity Reaction Status Date / Time iodine Allergy ADR-Itching Verified 04/21/24 11:17 streptomycin Allergy Unknown Verified 04/21/24 11:17 topical iodine Allergy Unknown ADR-Itching Uncoded 04/21/24 11:17 Current Medications Generic Name Dose Route Start Last Admin Trade Name Freq PRN Reason Stop Dose Admin Sodium Chloride 1,000 mls @ 30 mls/hr 04/22/24 06:15 04/22/24 06:29 Sodium Chloride 0.9% IV 04/23/24 06:14 30 mls/hr .Q24H MANNY Administration PFSH Anesthesia Medical History Ductal carcinoma in situ of right breast Asthma Insomnia Fatigue Atherosclerotic heart disease Back pain Fibromyalgia Osteoarthritis Neuropathy Hyperlipidemia HTN (hypertension) Hypothyroidism History of CVA (cerebrovascular accident) Surgical History S/P knee replacement Total right - 07/2006, Total left - 02/2007 S/P angioplasty 08/2004 - 2 stents placed S/P rotator cuff repair Right shoulder S/P cataract extraction Bilateral - Prosthetic lenses now Hx of excision of lamina of cervical vertebra for decompression of spinal cord Dr Patel - 08/2014 S/P hysterectomy Status post lumbar laminectomy Dr Patel Family History Father Heart attack CAD (coronary artery disease) Brother CAD (coronary artery disease) Mother Cancer Lung disease TB Tuberculosis Grandfather Dementia Stroke Family/Other Diabetes Suicide Denies family history of Clotting disorder Chronic kidney disease (CKD) Anesthesia complication Bleeding disorder Social History Smoking and tobacco/nicotine status: never used tobacco/nicotine Alcohol intake: current Marital status: Current gender identity: Female Data Anesthesia Cardiac Studies: Echocardiogram 02/02/24 Sestamibi Stress Test (Cardiology) 04/26/22 Cardiac Event Monitor 01/15/22
--- NOTE | 2024-04-22 07:21 | W.PM.OPSUD ---
Surgery/Procedure H&P Update DATE OF PROCEDURE: April 22, 2024 DATE H&P PERFORMED: 04/19/24 H&P UPDATE INFORMATION: I have reviewed H&P completed within last 30 days, I have examined patient prior to procedure and No changes to prior documentation PLANNED PROCEDURE: Operation Date: 04/22/24 08:15 Proposed Procedures p Portacath Placement 58643, Z95.828, D05.11(Not Applicable) - Ton Armas DO
[2024-04-22] MEDS: ceFAZolin 2,000 mg SDV 2000 MG IVP (08:20)
[2024-04-22] MEDS: lidocaine-epi 1% 20 mL INJ INJECTION (08:33)
[2024-04-22] MEDS: heparin, porcine 1,000 unit/mL INJ 10 mL 10000 UNIT IRRIGATION (08:48)
--- NOTE | 2024-04-22 08:57 | PM.OP ---
Operative Report Date of procedure: April 22, 2024 Surgeon: Ton Armas DO Brief History: This is a very pleasant 79-year-old female who was diagnosed with right-sided breast cancer. She is status post bilateral mastectomies. Oncology requested Mediport placement. The risk and benefits were explained and documented. Procedure: Pre-op diagnosis: Breast cancer Post-op diagnosis: same Procedure done: Mediport placement Intraoperative interpretation of fluoroscopy Implants: PowerPort Specimens removed/disposition: None Surgeon: Ton Armas DO Anesthesia: MAC and Local Estimated blood loss (mL): 5 Complications: None apparent Procedure: The patient was taken to the operating room and placed supine on the operating room table. All bony prominences were padded. She was given IV sedation and monitored throughout the case by the anesthesia personnel. SCDs were placed and turned on. The arms were tucked to the side. Patient received Ancef 2 g preoperatively IV. The bilateral chest wall was prepped and draped in usual sterile fashion using chlorhexidine base prep. Sterile drapes were applied. We did procedure pause prior to beginning. An 18 gauge needle was placed in the left subclavian vein. Dark, nonpulsatile blood was aspirated. A guidewire was placed through the needle centrally toward the atrial/vena caval junction. Fluoroscopy visualized good placement. The needle was removed and the guidewire was clipped to the drape with a hemostat. Further local anesthetic was infiltrated in the soft tissues of the left chest wall and a #15 blade was used to make a horizontal skin incision. A subcutaneous Mediport pocket was created using Bovie cautery, dissecting down through the skin and subcutaneous tissues. Meticulous hemostasis was achieved. The Mediport was sutured in position using 3-0 vicryl suture x2 stitches. A #15 blade was used to make a small skin larisa around the guidewire insertion area. The Mediport tubing was tunneled through the subcutaneous tissues up to the needle insertion location. A dilator with a peel-away sheath was placed over the guidewire and placed centrally. After measuring the Mediport tubing was cut to length so that the tip would end at the atrial/vena caval junction. The inner cannula and the guidewire were removed, leaving the dilator sheath in place. The Mediport was flushed. The tip of the catheter was inserted through the peel-away sheath and the peel-away sheath removed in the standard fashion. The Mediport was accessed with a straight Bryson needle and dark, nonpulsatile blood was aspirated and flushed using heparinized saline to hep-lock the Mediport. Final fluoroscopy visualization showed no kink in the catheter and the tip of the Mediport tubing near the atrial/vena caval junction. There is no obvious pneumothorax. Both skin incisions were thoroughly irrigated and suctioned dry. Meticulous hemostasis noted. The dermis was approximated with 3-0 Vicryl in an interrupted fashion. Skin was closed with Dermabond. Patient was awakened from anesthesia and transferred via her cart to the recovery room in stable condition. All needle, sponge, and instrument counts were correct per the operating personnel x2 counts.
--- NOTE | 2024-04-22 09:50 | ANE.PACU2 ---
Inpatient post-anesthesia follow up: Airway intact: Yes Vital signs: Temperature 97.2 F Pulse Rate 71 Respiratory Rate 18 Blood Pressure 144/69 Pulse Oximetry 100 Oxygen Delivery Me thod Room Air Oxygen Flow Rate Fraction of Inspir ed Oxygen Hydration adequate: Yes Nausea and vomiting: No Pain level: 1 Mental status: Baseline
== END 2024-04-22 09:51 | disposition home or self-care (01) ==
PROVIDERS: PCP Family Medicine; Visit Provider Surgery
PROC: (CPT 36561; principal; 2024-04-22 08:05)
DX: C50.911 Malignant neoplasm of unspecified site of right female breast (principal); I25.10 Atherosclerotic heart disease of native coronary artery without angina pectoris; I10 Essential (primary) hypertension; K21.9 Gastro-esophageal reflux disease without esophagitis; Z87.11 Personal history of peptic ulcer disease; Z86.73 Personal history of transient ischemic attack (TIA), and cerebral infarction without residual deficits; M79.7 Fibromyalgia; E78.5 Hyperlipidemia, unspecified; E03.9 Hypothyroidism, unspecified; Z95.5 Presence of coronary angioplasty implant and graft
CPT/HCPCS: 36561; 71045; 77001; C1788; J0690; J1644; J2704; J3010; J7030

== ENCOUNTER 2024-05-03 09:15 | Oncology outpatient (recurring) (ONCR) | payer MEDICARE, SELFPAY ==
[2024-04-05 12:09] LABS: Basophils % 0.6 %; Eosinophils # 0.3 10^3/uL (0.0-0.8); Eosinophils % 4.5 %; Hematocrit 29.7 % (36-47); Lymphocytes # 1.4 10^3/uL (0.8-4.8); Mean Corpuscular Hemoglobin 28.9 pg (27-33); Mean Corpuscular Volume 87.6 fl (85-98); Mean Platelet Volume 10.1 fL (7.4-10.4); Monocytes # 0.6 10^3/uL (0.2-0.9); Monocytes % 8.5 %; Neutrophils # 4.12 10^3/uL (1.8-7.7); Neutrophils % 63.9 %; Nucleated Red Blood Cells % 0 %; Platelet Count 390 10^3/cmm (157-399); Red Blood Count 3.39 10^6/uL (3.85-5.65); Red Cell Distribution Width 12.5 % (12.1-15.1); White Blood Count 6.45 10^3/uL (3.29-11.43)
[2024-04-05 12:46] LABS: Alanine Aminotransferase 11 U/L (0-33); Albumin Level 3.9 g/dL (3.5-5.2); Alkaline Phosphatase 102 U/L (35-105); Anion Gap 17.3 (5-19); Aspartate Amino Transferase 20 U/L (0-32); Blood Urea Nitrogen 10 mg/dL (8-23); Calcium 9.5 mg/dL (8.5-10.5); Carbon Dioxide 21 mmol/L (22-29); Chloride 95 mmol/L (98-107); Globulin 2.7 g/dL (1.3-4.6); Glucose 104 mg/dL (65-115); Osmolality Calculated 267 mOsm/kg (285-295); Potassium 4.3 mmol/L (3.5-5.1); Sodium 129 mmol/L (136-145); Total Bilirubin 0.3 mg/dL (0.15-1.2); Total Protein 6.6 g/dL (6.6-8.7)
[2024-04-06 09:28] LABS: Erythrocyte Sedimentation Rate 18 mm/hr (0-15)
[2024-04-06 22:58] LABS: C Reactive Protein 10.4 mg/L (0.0-4.9); CA 15-3 17.7 U/mL (0-25); Ferritin 97 ng/mL (15-150); Iron 29 ug/dL (37-145); Percent Saturation 11.1 % (20-50); Total Iron Binding Capacity 260 mcg/dl; Unsaturated Iron Binding 231 ug/dL (112-347); Vitamin B12 1066 pg/mL (232-1245)
--- NOTE | 2024-04-19 12:30 | CT_ITS ---
WS: [id number] CT CHEST, ABDOMEN, AND PELVIS TECHNIQUE: Contrast-enhanced CT of the chest, abdomen, and pelvis with coronal and sagittal reformatt ed images. CLINICAL INFORMATION: breast cancer COMPARISON: CT 2011 DLP: 921.[address] scans at [facility] use at least one of these dose optimization techniques: automated e xposure control; mA and/or kV adjustment per patient size (includes targeted exams where dose is matc hed to clinical indication); or iterative reconstruction. CT CHEST: Lungs are well aerated. No acute pulmonary infiltrates. Mild chronic emphysematous changes. No suspic ious pulmonary parenchymal abnormalities. Normal caliber thoracic aorta. Coronary calcification. Nodu lar LEFT thyroid. No mediastinal or hilar lymphadenopathy. No axillary lymphadenopathy. Postoperative changes bilateral breast. Mild spondylitic changes thoracic spine. Mild thoracic kyphosis. CT ABDOMEN AND PELVIS: Diffuse fatty infiltration of the liver. Normal portal vein and splenic vein. Normal spleen. Normal G E junction. Normal caliber abdominal aorta. Aortic calcification. Adrenal glands are normal. Normal r enal parenchymal enhancement. No hydronephrosis in either kidney. Heterogeneously enhancing LEFT eliel l lesion with fat attenuation compatible with angiomyolipoma similar to 2011. Today this measures eloisa roximately 1.7 cm. No periaortic or retroperitoneal lymphadenopathy. Sigmoid diverticulosis. Transverse colon constipati on. Stable sclerotic lesion in the RIGHT ilium. Slight anterolisthesis L4 on L5. CT/CT chest abdpel w/*[id number] IMPRESSION: 1. No evidence of metastatic disease in the chest, abdomen, or pelvis. 2. 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 Recommend continued surveillance. 3. No other acute findings.
[2024-04-19] MEDS: iohexol 350 mg/mL 500 mL Btl (per mL) PO (12:46)
[2024-04-19] MEDS: iohexol 350 mg/mL 500 mL Btl (per mL) IV (12:46)
--- NOTE | 2024-04-21 16:00 | MR_ITS ---
WS: [id number] MRI BRAIN WITH AND WITHOUT CONTRAST HISTORY: breast cancer COMPARISON: 11/09/2019 TECHNIQUE: Multiplanar imaging performed through the brain with MultiHance 20 ml's IV. Motion artifac t on numerous sequences. No acute infarcts are seen. Brian-white matter differentiation is well preserved. Mild to moderate atr ophy and small vessel ischemic disease. No significant progression. No large territory infarct. No susceptibility artifacts or prior lacunar infarcts. Ventricles and extra-axial spaces are normal. Clivus and pituitary gland are normal. Visualized posterior fossa and brainstem are also normal. Postcontrast images are negative for masses or vascular malformations. Dural venous sinuses are normal. Paranasal sinuses: Well aerated with no significant disease. Mastoid air cells: Bilateral mastoid air cell effusions, RIGHT greater than LEFT. Calvarium and scalp: Normal. MR/MR head wo/w con [id number] IMPRESSION: 1. No acute infarct or hemorrhage. 2. No metastatic disease to the brain or enhancing mass. Motion artifact mildl y compromises examination for subtle lesions. 3. Mild to moderate atrophy with small vessel ischemic disease. 4. Bilateral mastoid air cell effusions slightly increased in size.
[2024-04-21] MEDS: gadobenate dimeglumine 20 mL vial IV (17:12)
[2024-04-22 11:25] LABS: Basophils % 0.5 %; Eosinophils # 0.3 10^3/uL (0.0-0.8); Eosinophils % 5.1 %; Hematocrit 31.4 % (36-47); Lymphocytes % 36.2 %; Mean Corpuscular HGB Conc 32.8 g/dL (30-55); Mean Corpuscular Volume 85.3 fl (85-98); Mean Platelet Volume 10.8 fL (7.4-10.4); Monocytes # 0.5 10^3/uL (0.2-0.9); Monocytes % 8.3 %; Neutrophils # 2.75 10^3/uL (1.8-7.7); Neutrophils % 49.7 %; Nucleated Red Blood Cells % 0 %; Platelet Count 220 10^3/cmm (157-399); Red Blood Count 3.68 10^6/uL (3.85-5.65); Red Cell Distribution Width 13.4 % (12.1-15.1); White Blood Count 5.53 10^3/uL (3.29-11.43)
[2024-04-22 11:49] LABS: Alanine Aminotransferase 8 U/L (0-33); Alkaline Phosphatase 86 U/L (35-105); Anion Gap 19.6 (5-19); Aspartate Amino Transferase 16 U/L (0-32); Blood Urea Nitrogen 8 mg/dL (8-23); Calcium 9.1 mg/dL (8.5-10.5); Carbon Dioxide 18 mmol/L (22-29); Chloride 100 mmol/L (98-107); Creatinine Clr Calc Pharmacy 41.8758; Globulin 2.6 g/dL (1.3-4.6); Glucose 103 mg/dL (65-115); Osmolality Calculated 277 mOsm/kg (285-295); Potassium 3.6 mmol/L (3.5-5.1); Sodium 134 mmol/L (136-145); Total Bilirubin 0.2 mg/dL (0.15-1.2); Total Protein 6.6 g/dL (6.6-8.7)
[2024-04-22 13:34] LABS: Folate Level 5.9 ng/mL (4.8-37.3)
[2024-04-22 14:36] LABS: Hepatitis A Antibody IgM Equivocal (Nonreactive)
[2024-04-29 13:23] LABS: Soluble Transferrin Receptor 2.24 mg/L (0.76-1.76)
[2024-05-03 09:22] LABS: Basophils % 0.6 %; Eosinophils # 0.3 10^3/uL (0.0-0.8); Eosinophils % 6.4 %; Hematocrit 31.7 % (36-47); Lymphocytes # 1.4 10^3/uL (0.8-4.8); Lymphocytes % 27.8 %; Mean Corpuscular HGB Conc 32.8 g/dL (30-55); Mean Corpuscular Volume 85.2 fl (85-98); Mean Platelet Volume 10.2 fL (7.4-10.4); Monocytes # 0.4 10^3/uL (0.2-0.9); Monocytes % 7.8 %; Neutrophils # 2.95 10^3/uL (1.8-7.7); Neutrophils % 57.2 %; Nucleated Red Blood Cells % 0 %; Platelet Count 214 10^3/cmm (157-399); Red Blood Count 3.72 10^6/uL (3.85-5.65); Red Cell Distribution Width 13.6 % (12.1-15.1); White Blood Count 5.15 10^3/uL (3.29-11.43)
[2024-05-03 09:42] LABS: Alanine Aminotransferase 9 U/L (0-33); Albumin Level 3.9 g/dL (3.5-5.2); Alkaline Phosphatase 81 U/L (35-105); Anion Gap 16.9 (5-19); Aspartate Amino Transferase 19 U/L (0-32); Blood Urea Nitrogen 9 mg/dL (8-23); Calcium 9.1 mg/dL (8.5-10.5); Carbon Dioxide 20 mmol/L (22-29); Chloride 100 mmol/L (98-107); Creatinine Clr Calc Pharmacy 50.9007; Globulin 2.4 g/dL (1.3-4.6); Glucose 127 mg/dL (65-115); Osmolality Calculated 276 mOsm/kg (285-295); Potassium 3.9 mmol/L (3.5-5.1); Sodium 133 mmol/L (136-145); Total Bilirubin 0.4 mg/dL (0.15-1.2); Total Protein 6.3 g/dL (6.6-8.7)
[2024-05-03] MEDS: acetaminophen 325 mg Tablet 650 MG PO (12:02)
[2024-05-03] MEDS: sodium chloride 0.9% 250 ML 75 ML IV (12:02)
[2024-05-03] MEDS: dexamethasone 20 MG in sodium chloride 0.9% 50 ML 188 MG IV (12:03)
[2024-05-03] MEDS: diphenhydrAMINE 50 mg/mL SDV 1mL 25 MG IVP (12:05)
[2024-05-03] MEDS: famotidine 20 mg/2 mL INJ IVP (12:09)
[2024-05-03] MEDS: ondansetron 2 mg/ML SDV 2 mL 8 MG IVP (12:11)
[2024-05-03] MEDS: PACLitaxeL 152 MG in sodium chloride 0.9%(non-DEHP) 250 ML 275.33 MG IV (12:46)
[2024-05-03 12:50] VITALS: BP 146/67; PULSE 78; RESP 16; TEMP 36.6; O2SAT 98
[2024-05-03] MEDS: sodium chloride 0.9% 1,000 ML 250 ML IV (12:50)
[2024-05-03 14:35] VITALS: BP 135/86; PULSE 78; RESP 16; TEMP 36.6; O2SAT 99
== END 2024-05-05 23:59 | disposition home or self-care (01) ==
PROVIDERS: Internal Medicine; PCP Family Medicine; Visit Provider Internal Medicine Medical Oncology
DX: Z53.9 Procedure and treatment not carried out, unspecified reason (principal); Z51.11 Encounter for antineoplastic chemotherapy; C50.811 Malignant neoplasm of overlapping sites of right female breast; Z79.633 Long term (current) use of mitotic inhibitor; Z79.899 Other long term (current) drug therapy; Z79.52 Long term (current) use of systemic steroids; F32.A Depression, unspecified; F41.9 Anxiety disorder, unspecified; Z17.1 Estrogen receptor negative status [ER-]
CPT/HCPCS: 36415; 36591; 70553; 71260; 74177; 80053; 82607; 82728; 82746; 83540; 83550; 84238; 85025; 85045; 85651; 86140; 86300; 86709; 96367; 96375; 96413; 99204; 99213; 99215; A9577; J1100; J1200; J2405; J3490; J7030; J7050; J9267; Q9967

== ENCOUNTER 2024-05-26 09:00 | Oncology outpatient (recurring) (ONCR) | payer MEDICARE, SELFPAY ==
[2024-05-19 09:01] LABS: Basophils # 0.1 10^3/uL (0.0-0.1); Basophils % 0.7 %; Eosinophils # 0.5 10^3/uL (0.0-0.8); Eosinophils % 6.8 %; Hematocrit 31.5 % (36-47); Lymphocytes # 1.8 10^3/uL (0.8-4.8); Lymphocytes % 25.1 %; Mean Corpuscular HGB Conc 32.1 g/dL (30-55); Mean Corpuscular Volume 84.2 fl (85-98); Mean Platelet Volume 10.3 fL (7.4-10.4); Monocytes # 0.6 10^3/uL (0.2-0.9); Monocytes % 8.9 %; Neutrophils # 4.16 10^3/uL (1.8-7.7); Neutrophils % 58.1 %; Nucleated Red Blood Cells % 0 %; Platelet Count 263 10^3/cmm (157-399); Red Blood Count 3.74 10^6/uL (3.85-5.65); Red Cell Distribution Width 14.3 % (12.1-15.1); White Blood Count 7.17 10^3/uL (3.29-11.43)
[2024-05-19 09:19] LABS: Alanine Aminotransferase 8 U/L (0-33); Alkaline Phosphatase 81 U/L (35-105); Anion Gap 17.8 (5-19); Aspartate Amino Transferase 17 U/L (0-32); Blood Urea Nitrogen 5 mg/dL (8-23); Calcium 9.4 mg/dL (8.5-10.5); Carbon Dioxide 21 mmol/L (22-29); Chloride 101 mmol/L (98-107); Globulin 2.5 g/dL (1.3-4.6); Glucose 101 mg/dL (65-115); Osmolality Calculated 279 mOsm/kg (285-295); Potassium 3.8 mmol/L (3.5-5.1); Sodium 136 mmol/L (136-145); Total Bilirubin 0.4 mg/dL (0.15-1.2); Total Protein 6.5 g/dL (6.6-8.7)
[2024-05-19] MEDS: acetaminophen 325 mg Tablet 650 MG PO (11:25)
[2024-05-19] MEDS: sodium chloride 0.9% 250 ML 75 ML IV (11:25)
[2024-05-19] MEDS: dexamethasone 4 mg/mL INJ 5 mL 12 MG IVP (11:26)
[2024-05-19] MEDS: diphenhydrAMINE 50 mg/mL SDV 1mL 25 MG IVP (11:31)
[2024-05-19] MEDS: famotidine 20 mg/2 mL INJ IVP (11:33)
[2024-05-19] MEDS: ondansetron 2 mg/ML SDV 2 mL 8 MG IVP (11:36)
[2024-05-19] MEDS: TRASTUZUMAB IV (11:59)
[2024-05-19] MEDS: SODIUM CHLORIDE 0.9% IV (11:59)
[2024-05-19] MEDS: paclitaxel protein-bound 230 MG in empty flexible container 1 EACH 200 MG IV (13:49)
[2024-05-19 14:40] VITALS: BP 134/70; PULSE 70; RESP 16; TEMP 36.6; O2SAT 96
[2024-05-26 09:56] LABS: Basophils % 0.9 %; Eosinophils # 0.2 10^3/uL (0.0-0.8); Eosinophils % 7.2 %; Hematocrit 28.7 % (36-47); Lymphocytes # 0.8 10^3/uL (0.8-4.8); Lymphocytes % 35.3 %; Mean Corpuscular HGB Conc 32.1 g/dL (30-55); Mean Corpuscular Hemoglobin 26.7 pg (27-33); Mean Corpuscular Volume 83.4 fl (85-98); Mean Platelet Volume 10.8 fL (7.4-10.4); Monocytes # 0.1 10^3/uL (0.2-0.9); Monocytes % 5.1 %; Neutrophils # 1.19 10^3/uL (1.8-7.7); Neutrophils % 50.6 %; Nucleated Red Blood Cells % 0 %; Platelet Count 210 10^3/cmm (157-399); Red Blood Count 3.44 10^6/uL (3.85-5.65); Red Cell Distribution Width 14.6 % (12.1-15.1); White Blood Count 2.35 10^3/uL (3.29-11.43)
[2024-05-26 10:18] LABS: Alanine Aminotransferase 10 U/L (0-33); Alkaline Phosphatase 76 U/L (35-105); Anion Gap 15.6 (5-19); Aspartate Amino Transferase 16 U/L (0-32); Blood Urea Nitrogen 9 mg/dL (8-23); Calcium 8.9 mg/dL (8.5-10.5); Carbon Dioxide 21 mmol/L (22-29); Chloride 101 mmol/L (98-107); Creatinine Clr Calc Pharmacy 50.6199; Globulin 2.2 g/dL (1.3-4.6); Glucose 98 mg/dL (65-115); Osmolality Calculated 277 mOsm/kg (285-295); Potassium 3.6 mmol/L (3.5-5.1); Sodium 134 mmol/L (136-145); Total Bilirubin 0.4 mg/dL (0.15-1.2); Total Protein 6.2 g/dL (6.6-8.7)
[2024-05-26] MEDS: sodium chloride 0.9% 250 ML 75 ML IV (11:25)
[2024-05-26] MEDS: acetaminophen 325 mg Tablet 650 MG PO (11:26)
[2024-05-26] MEDS: diphenhydrAMINE 50 mg/mL SDV 1mL 25 MG IVP (11:28)
[2024-05-26] MEDS: TRASTUZUMAB IV (12:04)
[2024-05-26] MEDS: SODIUM CHLORIDE 0.9% IV (12:04)
== END 2024-05-26 23:59 | disposition home or self-care (01) ==
PROVIDERS: Nurse Practitioner Family; PCP Family Medicine; Visit Provider Internal Medicine Medical Oncology
DX: Z51.11 Encounter for antineoplastic chemotherapy; C50.811 Malignant neoplasm of overlapping sites of right female breast; D50.8 Other iron deficiency anemias; G31.9 Degenerative disease of nervous system, unspecified; Z79.899 Other long term (current) drug therapy; Z79.52 Long term (current) use of systemic steroids; Z53.9 Procedure and treatment not carried out, unspecified reason
CPT/HCPCS: 80053; 85025; 96375; 96411; 96413; 96415; 99214; J1100; J1200; J2405; J3490; J7050; J9264; J9355

== ENCOUNTER 2024-06-02 09:09 | Oncology outpatient (recurring) (ONCR) | payer MEDICARE, SELFPAY ==
[2024-06-02 10:00] LABS: Basophils # 0.1 10^3/uL (0.0-0.1); Basophils % 1.3 %; Eosinophils # 0.2 10^3/uL (0.0-0.8); Eosinophils % 5.3 %; Hematocrit 31.2 % (36-47); Lymphocytes # 1.4 10^3/uL (0.8-4.8); Lymphocytes % 38.3 %; Mean Corpuscular HGB Conc 31.1 g/dL (30-55); Mean Corpuscular Volume 83.6 fl (85-98); Mean Platelet Volume 10.4 fL (7.4-10.4); Monocytes # 0.6 10^3/uL (0.2-0.9); Monocytes % 14.6 %; Neutrophils # 1.49 10^3/uL (1.8-7.7); Neutrophils % 39.7 %; Nucleated Red Blood Cells % 0 %; Platelet Count 276 10^3/cmm (157-399); Red Blood Count 3.73 10^6/uL (3.85-5.65); Red Cell Distribution Width 14.9 % (12.1-15.1); White Blood Count 3.76 10^3/uL (3.29-11.43)
[2024-06-02 10:35] LABS: Alanine Aminotransferase 7 U/L (0-33); Alkaline Phosphatase 80 U/L (35-105); Anion Gap 15.7 (5-19); Aspartate Amino Transferase 14 U/L (0-32); Blood Urea Nitrogen 10 mg/dL (8-23); Calcium 9.1 mg/dL (8.5-10.5); Carbon Dioxide 22 mmol/L (22-29); Chloride 101 mmol/L (98-107); Globulin 2.3 g/dL (1.3-4.6); Glucose 92 mg/dL (65-115); Iron 34 ug/dL (37-145); Osmolality Calculated 279 mOsm/kg (285-295); Percent Saturation 12.6 % (20-50); Potassium 3.7 mmol/L (3.5-5.1); Sodium 135 mmol/L (136-145); Total Bilirubin 0.3 mg/dL (0.15-1.2); Total Iron Binding Capacity 269 mcg/dl; Total Protein 6.3 g/dL (6.6-8.7); Unsaturated Iron Binding 235 ug/dL (112-347)
[2024-06-02] MEDS: sodium chloride 0.9% 250 ML 75 ML IV (10:57)
[2024-06-02] MEDS: acetaminophen 325 mg Tablet 650 MG PO (11:04)
[2024-06-02] MEDS: diphenhydrAMINE 50 mg/mL SDV 1mL 25 MG IVP (11:06)
[2024-06-02] MEDS: SODIUM CHLORIDE 0.9% IV (12:13)
[2024-06-02] MEDS: TRASTUZUMAB IV (12:13)
[2024-06-02 13:26] VITALS: BP 128/80; PULSE 69; RESP 16; TEMP 37.1; O2SAT 94
== END 2024-06-05 23:59 | disposition home or self-care (01) ==
PROVIDERS: PCP Family Medicine; Visit Provider Internal Medicine Medical Oncology
DX: C50.811 Malignant neoplasm of overlapping sites of right female breast; Z79.899 Other long term (current) drug therapy; Z79.52 Long term (current) use of systemic steroids; Z17.1 Estrogen receptor negative status [ER-]; Z79.633 Long term (current) use of mitotic inhibitor; Z90.13 Acquired absence of bilateral breasts and nipples; Z80.3 Family history of malignant neoplasm of breast; Z51.12 Encounter for antineoplastic immunotherapy; D50.8 Other iron deficiency anemias
CPT/HCPCS: 80053; 83540; 83550; 85025; 96375; 96413; 99214; J1200; J7050; J9355

== ENCOUNTER 2024-06-16 07:50 | Oncology outpatient (recurring) (ONCR) | payer MEDICARE, SELFPAY ==
[2024-06-09 09:37] LABS: Basophils % 0.3 %; Eosinophils # 0.1 10^3/uL (0.0-0.8); Hematocrit 32.3 % (36-47); Lymphocytes # 2.2 10^3/uL (0.8-4.8); Lymphocytes % 36.3 %; Mean Corpuscular Hemoglobin 25.5 pg (27-33); Mean Corpuscular Volume 82.4 fl (85-98); Mean Platelet Volume 10.2 fL (7.4-10.4); Monocytes # 0.6 10^3/uL (0.2-0.9); Monocytes % 9.5 %; Neutrophils # 3.09 10^3/uL (1.8-7.7); Neutrophils % 51.4 %; Nucleated Red Blood Cells % 0 %; Platelet Count 289 10^3/cmm (157-399); Red Blood Count 3.92 10^6/uL (3.85-5.65); Red Cell Distribution Width 15.6 % (12.1-15.1); White Blood Count 6.01 10^3/uL (3.29-11.43)
[2024-06-09 09:55] LABS: Alanine Aminotransferase 9 U/L (0-33); Albumin Level 4.1 g/dL (3.5-5.2); Alkaline Phosphatase 82 U/L (35-105); Anion Gap 16.2 (5-19); Aspartate Amino Transferase 16 U/L (0-32); Blood Urea Nitrogen 10 mg/dL (8-23); Carbon Dioxide 23 mmol/L (22-29); Chloride 99 mmol/L (98-107); Ferritin 55 ng/mL (15-150); Globulin 2.4 g/dL (1.3-4.6); Glucose 103 mg/dL (65-115); Iron 44 ug/dL (37-145); Osmolality Calculated 277 mOsm/kg (285-295); Percent Saturation 16.6 % (20-50); Potassium 4.2 mmol/L (3.5-5.1); Sodium 134 mmol/L (136-145); Total Bilirubin 0.3 mg/dL (0.15-1.2); Total Iron Binding Capacity 264 mcg/dl; Total Protein 6.5 g/dL (6.6-8.7); Unsaturated Iron Binding 220 ug/dL (112-347)
[2024-06-09] MEDS: acetaminophen 325 mg Tablet 650 MG PO (11:44)
[2024-06-09] MEDS: sodium chloride 0.9% 250 ML 75 ML IV (11:44)
[2024-06-09] MEDS: diphenhydrAMINE 50 mg/mL SDV 1mL 25 MG IVP (11:45)
[2024-06-09] MEDS: paclitaxel protein-bound 170 MG in empty flexible container 1 EACH 68 MG IV (12:50)
[2024-06-09] MEDS: TRASTUZUMAB IV (13:58)
[2024-06-09] MEDS: SODIUM CHLORIDE 0.9% IV (13:58)
[2024-06-09 14:40] VITALS: BP 131/60; PULSE 65; RESP 17; TEMP 36.6; O2SAT 95
[2024-06-16 08:11] LABS: Basophils % 0.8 %; Eosinophils # 0.2 10^3/uL (0.0-0.8); Eosinophils % 3.8 %; Hematocrit 30.5 % (36-47); Lymphocytes # 1.4 10^3/uL (0.8-4.8); Lymphocytes % 35.7 %; Mean Corpuscular HGB Conc 31.8 g/dL (30-55); Mean Corpuscular Hemoglobin 25.9 pg (27-33); Mean Corpuscular Volume 81.6 fl (85-98); Mean Platelet Volume 10.6 fL (7.4-10.4); Monocytes # 0.3 10^3/uL (0.2-0.9); Monocytes % 6.3 %; Neutrophils # 2.08 10^3/uL (1.8-7.7); Neutrophils % 52.6 %; Nucleated Red Blood Cells % 0 %; Platelet Count 259 10^3/cmm (157-399); Red Blood Count 3.74 10^6/uL (3.85-5.65); Red Cell Distribution Width 15.3 % (12.1-15.1); White Blood Count 3.95 10^3/uL (3.29-11.43)
[2024-06-16 08:36] LABS: Alanine Aminotransferase 9 U/L (0-33); Albumin Level 4.1 g/dL (3.5-5.2); Alkaline Phosphatase 84 U/L (35-105); Anion Gap 17.7 (5-19); Aspartate Amino Transferase 15 U/L (0-32); Blood Urea Nitrogen 10 mg/dL (8-23); Calcium 9.1 mg/dL (8.5-10.5); Carbon Dioxide 21 mmol/L (22-29); Chloride 99 mmol/L (98-107); Creatinine Clr Calc Pharmacy 45.0681; Globulin 2.3 g/dL (1.3-4.6); Glucose 112 mg/dL (65-115); Osmolality Calculated 278 mOsm/kg (285-295); Potassium 3.7 mmol/L (3.5-5.1); Sodium 134 mmol/L (136-145); Total Bilirubin 0.4 mg/dL (0.15-1.2); Total Protein 6.4 g/dL (6.6-8.7)
[2024-06-16] MEDS: acetaminophen 325 mg Tablet 650 MG PO (09:59)
[2024-06-16] MEDS: sodium chloride 0.9% 250 ML 75 ML IV (09:59)
[2024-06-16] MEDS: diphenhydrAMINE 50 mg/mL SDV 1mL 25 MG IVP (09:59)
[2024-06-16] MEDS: TRASTUZUMAB IV (10:48)
[2024-06-16] MEDS: SODIUM CHLORIDE 0.9% IV (10:48)
[2024-06-16] MEDS: PACLITAXEL PROTEIN BOUND IV (11:38)
[2024-06-16] MEDS: FLEXIBLE CONTAINER IV (11:38)
[2024-06-16 12:15] VITALS: BP 124/78; PULSE 72; RESP 18; TEMP 36.4; O2SAT 98
[2024-06-16 12:41] LABS: Bilirubin Urine Negative (Negative); Blood Urine Negative (Negative); Glucose Urine UA Negative (Normal); Ketones Urine Negative (Negative); Leukocyte Esterase Urine 2+ (Negative); Nitrate Urine Negative (Negative); Protein Urine Negative (Negative); Specific Gravity, Urine 1.006 (1.005-1.030); Urine Appearance Clear (CLEAR); Urine Color Yellow (Yellow); Urobilinogen Urine 0.2 mg/dL (Negative)
[2024-06-16 12:44] LABS: Add Urine Microscopic? YES; Bacteria Urine None Seen /hpf; Hyaline Casts Urine 0-4 /lpf; RBC Urine 0-2 /hpf (0-2); Squamous Epithelial Cell Urine 0-5 /hpf (0-5); WBC Urine 21-50 /hpf (0-5)
[2024-06-16 12:49] LABS: Add Urine Culture? Yes
== END 2024-06-16 23:59 | disposition home or self-care (01) ==
PROVIDERS: Nurse Practitioner Family; PCP Family Medicine; Visit Provider Internal Medicine Medical Oncology
DX: Z53.9 Procedure and treatment not carried out, unspecified reason; Z51.11 Encounter for antineoplastic chemotherapy; C50.811 Malignant neoplasm of overlapping sites of right female breast; G31.9 Degenerative disease of nervous system, unspecified; D64.9 Anemia, unspecified; Z51.12 Encounter for antineoplastic immunotherapy; R35.0 Frequency of micturition; Z79.899 Other long term (current) drug therapy; Z17.1 Estrogen receptor negative status [ER-]; Z79.52 Long term (current) use of systemic steroids; Z79.633 Long term (current) use of mitotic inhibitor; Z80.3 Family history of malignant neoplasm of breast
CPT/HCPCS: 80053; 81001; 82728; 83540; 83550; 85025; 87086; 87186; 96375; 96413; 96417; 99214; J1200; J7050; J9264; J9355

== ENCOUNTER 2024-06-30 09:13 | Oncology outpatient (recurring) (ONCR) | payer MEDICARE, SELFPAY ==
[2024-06-18] MEDS: sodium chloride 0.9% 250 ML 220 ML IV (10:47)
[2024-06-18] MEDS: iron sucrose 200 MG in sodium chloride 0.9% (100 ml) 100 ML 220 MG IV (10:47)
[2024-06-18 10:50] VITALS: BP 132/78; PULSE 77; RESP 16; TEMP 36.1; O2SAT 97
[2024-06-21 12:44] VITALS: BP 111/82; PULSE 76; RESP 16; TEMP 36.6; O2SAT 95
[2024-06-21 15:12] VITALS: BP 141/80; PULSE 82; RESP 18; TEMP 36; O2SAT 97
[2024-06-21] MEDS: iron sucrose 200 MG in sodium chloride 0.9% (100 ml) 100 ML 220 MG IV (15:19)
[2024-06-21 15:55] VITALS: BP 134/72; PULSE 80; RESP 16; TEMP 36; O2SAT 99
[2024-06-23 08:15] LABS: Eosinophils # 0.2 10^3/uL (0.0-0.8); Eosinophils % 5.9 %; Hematocrit 29.8 % (36-47); Lymphocytes # 1.3 10^3/uL (0.8-4.8); Mean Corpuscular HGB Conc 31.5 g/dL (30-55); Mean Corpuscular Volume 82.3 fl (85-98); Mean Platelet Volume 9.6 fL (7.4-10.4); Monocytes # 0.3 10^3/uL (0.2-0.9); Monocytes % 8.9 %; Neutrophils # 1.23 10^3/uL (1.8-7.7); Neutrophils % 40.2 %; Nucleated Red Blood Cells % 0 %; Platelet Count 297 10^3/cmm (157-399); Red Blood Count 3.62 10^6/uL (3.85-5.65); Red Cell Distribution Width 15.8 % (12.1-15.1); White Blood Count 3.05 10^3/uL (3.29-11.43)
[2024-06-23 08:38] LABS: Alanine Aminotransferase 7 U/L (0-33); Albumin Level 4.2 g/dL (3.5-5.2); Alkaline Phosphatase 79 U/L (35-105); Anion Gap 15.6 (5-19); Aspartate Amino Transferase 15 U/L (0-32); Blood Urea Nitrogen 7 mg/dL (8-23); Calcium 9.2 mg/dL (8.5-10.5); Carbon Dioxide 22 mmol/L (22-29); Chloride 102 mmol/L (98-107); Creatinine Clr Calc Pharmacy 44.7126; Globulin 2.3 g/dL (1.3-4.6); Glucose 98 mg/dL (65-115); Osmolality Calculated 280 mOsm/kg (285-295); Potassium 3.6 mmol/L (3.5-5.1); Sodium 136 mmol/L (136-145); Total Bilirubin 0.4 mg/dL (0.15-1.2); Total Protein 6.5 g/dL (6.6-8.7)
[2024-06-23] MEDS: acetaminophen 325 mg Tablet 650 MG PO (09:22)
[2024-06-23] MEDS: diphenhydrAMINE 50 mg/mL SDV 1mL 25 MG IVP (09:22)
[2024-06-23] MEDS: sodium chloride 0.9% 250 ML 75 ML IV (09:22)
[2024-06-23] MEDS: SODIUM CHLORIDE 0.9% IV (10:01)
[2024-06-23] MEDS: TRASTUZUMAB IV (10:01)
[2024-06-23] MEDS: paclitaxel protein-bound 170 MG in empty flexible container 1 EACH 80 MG IV (10:48)
[2024-06-23] MEDS: iron sucrose 200 MG in sodium chloride 0.9% (100 ml) 100 ML 220 MG IV (11:27)
[2024-06-23 12:11] VITALS: BP 148/64; PULSE 71; RESP 16; TEMP 36.4; O2SAT 97
[2024-06-24] MEDS: filgrastim-sndz 480 mcg/0.8 mL Syringe SUBCUT (09:32)
[2024-06-24 09:41] VITALS: BP 132/70; PULSE 74; RESP 16; TEMP 36.4; O2SAT 94
[2024-06-25 10:28] VITALS: BP 139/71; PULSE 85; RESP 18; TEMP 36.4; O2SAT 97
[2024-06-25] MEDS: iron sucrose 200 MG in sodium chloride 0.9% (100 ml) 100 ML 220 MG IV (10:49)
[2024-06-25] MEDS: filgrastim-sndz 480 mcg/0.8 mL Syringe SUBCUT (10:53)
[2024-06-25 11:36] VITALS: BP 144/68; PULSE 66; RESP 17; TEMP 36.6; O2SAT 98
[2024-06-28 13:39] VITALS: BP 129/80; PULSE 71; RESP 18; TEMP 35.9; O2SAT 98
[2024-06-28] MEDS: iron sucrose 200 MG in sodium chloride 0.9% (100 ml) 100 ML 220 MG IV (13:55)
[2024-06-28 14:43] VITALS: BP 151/67; PULSE 71; RESP 17; TEMP 35.6; O2SAT 98
[2024-06-30 09:38] LABS: Hematocrit 30.3 % (36-47); Mean Corpuscular Hemoglobin 26.1 pg (27-33); Mean Corpuscular Volume 81.7 fl (85-98); Mean Platelet Volume 9.6 fL (7.4-10.4); Platelet Count 338 10^3/cmm (157-399); Red Blood Count 3.71 10^6/uL (3.85-5.65); Red Cell Distribution Width 17.4 % (12.1-15.1); White Blood Count 5.11 10^3/uL (3.29-11.43)
[2024-06-30 09:53] LABS: Slide Review Slide Review Perform
[2024-06-30 09:56] LABS: Alanine Aminotransferase 9 U/L (0-33); Albumin Level 4.1 g/dL (3.5-5.2); Alkaline Phosphatase 80 U/L (35-105); Anion Gap 15.3 (5-19); Aspartate Amino Transferase 17 U/L (0-32); Blood Urea Nitrogen 5 mg/dL (8-23); Calcium 9.2 mg/dL (8.5-10.5); Carbon Dioxide 23 mmol/L (22-29); Chloride 101 mmol/L (98-107); Creatinine Clr Calc Pharmacy 55.8908; Globulin 2.3 g/dL (1.3-4.6); Glucose 115 mg/dL (65-115); Osmolality Calculated 280 mOsm/kg (285-295); Potassium 3.3 mmol/L (3.5-5.1); Sodium 136 mmol/L (136-145); Total Bilirubin 0.4 mg/dL (0.15-1.2); Total Protein 6.4 g/dL (6.6-8.7)
[2024-06-30 09:57] LABS: Absolute Eosinophils 0.1 10^3/cmm (0.0-0.7); Absolute Segmented Neutrophil 1.9 10/cmm (1.6-7.1); Band Neutrophils Absolute 0.6 10^3/cmm (0.0-1.2); Eosinophils 2 %; Lymphocytes 33 %; Lymphocytes Absolute 1.7 10^3/cmm (1.2-3.4); Monocytes Absolute 0.5 10^3/cmm (0.1-0.6); Segmented Neutrophils 38 %; Total Cells Counted 100 (0-100)
[2024-06-30 09:58] LABS: Absolute Neutrophil 2.5 10^3/cmm (1.4-6.5); Platelet Estimate Normal (Normal); Poikilocytosis 1+; Polychromasia 1+
[2024-06-30] MEDS: sodium chloride 0.9% 250 ML 75 ML IV (11:11)
[2024-06-30] MEDS: acetaminophen 325 mg Tablet 650 MG PO (11:11)
[2024-06-30] MEDS: diphenhydrAMINE 50 mg/mL SDV 1mL 25 MG IVP (11:12)
[2024-06-30] MEDS: SODIUM CHLORIDE 0.9% IV (11:53)
[2024-06-30] MEDS: TRASTUZUMAB IV (11:53)
[2024-06-30 11:54] LABS: Magnesium 1.6 mg/dL (1.7-2.3)
[2024-06-30] MEDS: paclitaxel protein-bound 170 MG in empty flexible container 1 EACH 68 MG IV (12:42)
[2024-06-30 13:35] VITALS: BP 134/77; PULSE 68; RESP 17; TEMP 36.1; O2SAT 98
== END 2024-06-30 23:59 | disposition home or self-care (01) ==
PROVIDERS: Nurse Practitioner Family; PCP Family Medicine; Visit Provider Internal Medicine Medical Oncology
DX: Z51.11 Encounter for antineoplastic chemotherapy; C50.811 Malignant neoplasm of overlapping sites of right female breast; Z53.9 Procedure and treatment not carried out, unspecified reason; D70.1 Agranulocytosis secondary to cancer chemotherapy; T45.1X5A Adverse effect of antineoplastic and immunosuppressive drugs, initial encounter; Z79.899 Other long term (current) drug therapy; Z17.1 Estrogen receptor negative status [ER-]; Z90.13 Acquired absence of bilateral breasts and nipples; D50.8 Other iron deficiency anemias; E87.6 Hypokalemia
CPT/HCPCS: 80053; 83735; 85007; 85025; 96365; 96367; 96372; 96375; 96413; 96417; 99214; J1200; J1756; J7050; J9264; J9355; Q5101

== ENCOUNTER 2024-07-28 09:15 | Oncology outpatient (recurring) (ONCR) | payer MEDICARE, SELFPAY ==
[2024-07-07 10:25] LABS: Basophils % 1.2 %; Eosinophils # 0.1 10^3/uL (0.0-0.8); Eosinophils % 1.5 %; Hematocrit 29.8 % (36-47); Lymphocytes # 1.4 10^3/uL (0.8-4.8); Lymphocytes % 42.2 %; Mean Corpuscular HGB Conc 32.2 g/dL (30-55); Mean Corpuscular Hemoglobin 26.5 pg (27-33); Mean Corpuscular Volume 82.3 fl (85-98); Monocytes # 0.2 10^3/uL (0.2-0.9); Neutrophils # 1.54 10^3/uL (1.8-7.7); Neutrophils % 46.9 %; Nucleated Red Blood Cells % 0 %; Platelet Count 304 10^3/cmm (157-399); Red Blood Count 3.62 10^6/uL (3.85-5.65); Red Cell Distribution Width 19.1 % (12.1-15.1); White Blood Count 3.29 10^3/uL (3.29-11.43)
[2024-07-07 10:42] LABS: Alanine Aminotransferase 22 U/L (0-33); Albumin Level 4.1 g/dL (3.5-5.2); Alkaline Phosphatase 142 U/L (35-105); Anion Gap 15.4 (5-19); Aspartate Amino Transferase 21 U/L (0-32); Blood Urea Nitrogen 7 mg/dL (8-23); Carbon Dioxide 22 mmol/L (22-29); Chloride 101 mmol/L (98-107); Globulin 2.4 g/dL (1.3-4.6); Glucose 117 mg/dL (65-115); Osmolality Calculated 279 mOsm/kg (285-295); Potassium 3.4 mmol/L (3.5-5.1); Sodium 135 mmol/L (136-145); Total Bilirubin 0.4 mg/dL (0.15-1.2); Total Protein 6.5 g/dL (6.6-8.7)
[2024-07-14 10:36] LABS: Basophils # 0.1 10^3/uL (0.0-0.1); Basophils % 0.9 %; Eosinophils # 0.1 10^3/uL (0.0-0.8); Eosinophils % 2.1 %; Hematocrit 31.1 % (36-47); Lymphocytes # 1.4 10^3/uL (0.8-4.8); Lymphocytes % 23.6 %; Mean Corpuscular HGB Conc 31.5 g/dL (30-55); Mean Corpuscular Hemoglobin 27.6 pg (27-33); Mean Corpuscular Volume 87.6 fl (85-98); Mean Platelet Volume 9.9 fL (7.4-10.4); Monocytes # 0.8 10^3/uL (0.2-0.9); Monocytes % 14.5 %; Neutrophils # 3.35 10^3/uL (1.8-7.7); Neutrophils % 58.4 %; Nucleated Red Blood Cells % 0 %; Platelet Count 254 10^3/cmm (157-399); Red Blood Count 3.55 10^6/uL (3.85-5.65); Red Cell Distribution Width 21.1 % (12.1-15.1); White Blood Count 5.73 10^3/uL (3.29-11.43)
[2024-07-14 10:56] LABS: Alanine Aminotransferase 8 U/L (0-33); Albumin Level 3.9 g/dL (3.5-5.2); Alkaline Phosphatase 99 U/L (35-105); Anion Gap 10.2 (5-19); Aspartate Amino Transferase 13 U/L (0-32); Blood Urea Nitrogen 9 mg/dL (8-23); Calcium 8.8 mg/dL (8.5-10.5); Carbon Dioxide 24 mmol/L (22-29); Chloride 102 mmol/L (98-107); Creatinine Clr Calc Pharmacy 49.8126; Globulin 2.1 g/dL (1.3-4.6); Glucose 91 mg/dL (65-115); Osmolality Calculated 272 mOsm/kg (285-295); Potassium 4.2 mmol/L (3.5-5.1); Sodium 132 mmol/L (136-145); Total Bilirubin 0.3 mg/dL (0.15-1.2)
[2024-07-14] MEDS: sodium chloride 0.9% 250 ML 75 ML IV (11:18)
[2024-07-14] MEDS: acetaminophen 325 mg Tablet 650 MG PO (11:19)
[2024-07-14] MEDS: diphenhydrAMINE 50 mg/mL SDV 1mL 25 MG IVP (11:19)
[2024-07-14] MEDS: TRASTUZUMAB IV (12:19)
[2024-07-14] MEDS: SODIUM CHLORIDE 0.9% IV (12:19)
[2024-07-14] MEDS: paclitaxel protein-bound 170 MG in empty flexible container 1 EACH 68 MG IV (13:18)
[2024-07-14 14:20] VITALS: BP 132/85; PULSE 65; RESP 17; TEMP 35.7; O2SAT 97
[2024-07-21 08:30] LABS: Basophils % 0.5 %; Eosinophils # 0.2 10^3/uL (0.0-0.8); Eosinophils % 5.4 %; Hematocrit 32.5 % (36-47); Lymphocytes # 1.6 10^3/uL (0.8-4.8); Lymphocytes % 36.5 %; Mean Corpuscular HGB Conc 32.9 g/dL (30-55); Mean Corpuscular Hemoglobin 28.2 pg (27-33); Mean Corpuscular Volume 85.5 fl (85-98); Mean Platelet Volume 9.7 fL (7.4-10.4); Monocytes # 0.3 10^3/uL (0.2-0.9); Monocytes % 6.1 %; Neutrophils # 2.18 10^3/uL (1.8-7.7); Nucleated Red Blood Cells % 0 %; Platelet Count 259 10^3/cmm (157-399); Red Cell Distribution Width 21.2 % (12.1-15.1); White Blood Count 4.27 10^3/uL (3.29-11.43)
[2024-07-21 09:01] LABS: Alanine Aminotransferase 9 U/L (0-33); Albumin Level 4.4 g/dL (3.5-5.2); Alkaline Phosphatase 93 U/L (35-105); Aspartate Amino Transferase 15 U/L (0-32); Blood Urea Nitrogen 10 mg/dL (8-23); CA 15-3 32.2 U/mL (0-25); Calcium 9.4 mg/dL (8.5-10.5); Carbon Dioxide 23 mmol/L (22-29); Chloride 101 mmol/L (98-107); Creatinine Clr Calc Pharmacy 43.7888; Globulin 2.3 g/dL (1.3-4.6); Glucose 103 mg/dL (65-115); Lactate Dehydrogenase 193 U/L (135-214); Magnesium 1.7 mg/dL (1.7-2.3); Osmolality Calculated 277 mOsm/kg (285-295); Sodium 134 mmol/L (136-145); Total Bilirubin 0.3 mg/dL (0.15-1.2); Total Protein 6.7 g/dL (6.6-8.7)
--- NOTE | 2024-07-23 10:30 | PETR_ITS ---
PROCEDURE INFORMATION: Exam: PET/CT Skull Base to Mid-thigh Exam date and time: 07/23/2024 11:30 AM Age: 79 years old Clinical indication: Condition or disease; Primary cancer: Breast cancer, right; Initial oncological staging assessment; Prior surgery; Surgery date: 6+ months; Surgery type: Bilat breast, hyst; Additional info: Compare to previous imaging LABS AND CLINICAL REPORTS: Glucose: 121 mg/dl Treatment strategy for malignancy (PET staging): Initial Staging (PI) TECHNIQUE: Imaging protocol: Following at least four-hour fasting and following the injection of radiopharmaceutical, low dose CT images were obtained. Then, PET images were obtained. Attenuation corrected images were constructed using the CT scan. Fused images of PET and CT were reviewed. The standardized uptake values (SUV) reported below are maximum values within a region of interest, expressed in gm/ml. Exam includes orbital meatal line to mid-thigh. Radiopharmaceutical: 11.55 mCi F-18 FDG (Fluorodeoxyglucose), IV. Time of imaging post radiopharmaceutical administration: 1 hour Injection site: RAC COMPARISON: CT chest, abdomen and pelvis with contrast 04/19/2024 FINDINGS: Tubes, catheters and devices: Port catheter placed via the left subclavian vein terminates in the superior vena cava. Brain: Visualized brain has normal physiologic uptake. Pharynx: No abnormal uptake. Larynx: Benign physiologic uptake. Lungs, pleura and trachea: No abnormal uptake. There are calcified granulomas in the lower lobes. 4 mm noncalcified nodule in the left lower lobe on series 202, image 232 is stable since prior exam likely representing benign finding. No pleural effusion. Heart: Normal physiologic uptake. There is no cardiomegaly. Severe coronary artery calcification is present. There is no pericardial effusion. Mediastinal space: No abnormal uptake. Liver: No abnormal uptake. Gallbladder and biliary ducts: No abnormal uptake. No calcified gallstones. Pancreas: No abnormal uptake. Spleen: No abnormal uptake. Adrenal glands: No abnormal uptake. No nodules. Kidneys and ureters: Normal physiologic uptake. No hydronephrosis. Stable 1.8 cm fatty nodule partially exophytic laterally from the lower pole of the left kidney suggestive of angiomyolipoma. Stomach and bowel: Long segment of increased uptake in the right and left colon with no corresponding CT abnormality is likely benign. The colon is mostly collapsed for clinical correlation with diarrhea. No abnormal dilatation of the bowel. No diverticulosis or diverticulitis. Intraperitoneal and retroperitoneal spaces: No abnormal uptake. No ascites. Bladder: Normal physiologic uptake. Reproductive: No abnormal uptake. The uterus is absent post surgically. Vasculature: No abnormal uptake. No aortic aneurysm. Stable about 1 cm densely calcified nodules proximally and distally in the splenic artery representing stable small aneurysms. No follow-up imaging is recommended. Lymph nodes: No abnormal uptake. No lymphadenopathy in the head, neck, chest, abdomen, pelvis, and extremities. Skeleton: No abnormal uptake in the visualized axial and appendicular skeleton. Grade 1 degenerative anterolisthesis of L4 associated with L4-L5 facet arthropathy. Soft tissues: Benign linear uptake in the paraspinal muscles in the back. Status post bilateral mastectomy. Postsurgical fluid collections present in bilateral anterior chest wall on the prior exam on 04/19/2024 have resolved. PET/PET skull to thigh INIT [id number] IMPRESSION: No abnormal radiotracer uptake concerning for malignancy. Diffusely increased uptake in the colon is likely benign. 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
[2024-07-28 09:10] LABS: Basophils # 0.1 10^3/uL (0.0-0.1); Eosinophils # 0.1 10^3/uL (0.0-0.8); Hematocrit 32.6 % (36-47); Lymphocytes # 1.9 10^3/uL (0.8-4.8); Lymphocytes % 27.7 %; Mean Corpuscular HGB Conc 32.2 g/dL (30-55); Mean Corpuscular Hemoglobin 27.9 pg (27-33); Mean Corpuscular Volume 86.5 fl (85-98); Mean Platelet Volume 9.5 fL (7.4-10.4); Monocytes # 0.7 10^3/uL (0.2-0.9); Monocytes % 10.1 %; Neutrophils # 4.01 10^3/uL (1.8-7.7); Neutrophils % 59.9 %; Nucleated Red Blood Cells % 0 %; Platelet Count 243 10^3/cmm (157-399); Red Blood Count 3.77 10^6/uL (3.85-5.65); Red Cell Distribution Width 21.1 % (12.1-15.1); White Blood Count 6.71 10^3/uL (3.29-11.43)
[2024-07-28 09:34] LABS: Alanine Aminotransferase 8 U/L (0-33); Albumin Level 4.2 g/dL (3.5-5.2); Alkaline Phosphatase 95 U/L (35-105); Anion Gap 15.3 (5-19); Aspartate Amino Transferase 14 U/L (0-32); Blood Urea Nitrogen 10 mg/dL (8-23); Calcium 9.1 mg/dL (8.5-10.5); Carbon Dioxide 24 mmol/L (22-29); Chloride 98 mmol/L (98-107); Creatinine Clr Calc Pharmacy 44.1677; Globulin 2.1 g/dL (1.3-4.6); Glucose 97 mg/dL (65-115); Osmolality Calculated 275 mOsm/kg (285-295); Potassium 4.3 mmol/L (3.5-5.1); Sodium 133 mmol/L (136-145); Total Bilirubin 0.4 mg/dL (0.15-1.2); Total Protein 6.3 g/dL (6.6-8.7)
[2024-07-28] MEDS: sodium chloride 0.9% 250 ML 75 ML IV (11:17)
[2024-07-28] MEDS: acetaminophen 325 mg Tablet 650 MG PO (11:17)
[2024-07-28] MEDS: diphenhydrAMINE 50 mg/mL SDV 1mL 25 MG IVP (11:17)
[2024-07-28 11:44] VITALS: RESP 18
[2024-07-28] MEDS: morphine 4 mg/mL SDV 1 mL 1 MG IVP (11:44)
[2024-07-28] MEDS: SODIUM CHLORIDE 0.9% IV (11:57)
[2024-07-28] MEDS: TRASTUZUMAB IV (11:57)
[2024-07-28] MEDS: paclitaxel protein-bound 170 MG in empty flexible container 1 EACH 68 MG IV (12:45)
[2024-07-28 13:40] VITALS: BP 122/78; PULSE 78; RESP 18; TEMP 36.4; O2SAT 98
== END 2024-07-28 23:59 | disposition home or self-care (01) ==
PROVIDERS: Nurse Practitioner Family; PCP Family Medicine; Visit Provider Internal Medicine Hematology & Oncology
DX: Z51.11 Encounter for antineoplastic chemotherapy (principal); C50.811 Malignant neoplasm of overlapping sites of right female breast; Z53.9 Procedure and treatment not carried out, unspecified reason; T45.1X5A Adverse effect of antineoplastic and immunosuppressive drugs, initial encounter; Z17.0 Estrogen receptor positive status [ER+]; D70.1 Agranulocytosis secondary to cancer chemotherapy; Z79.633 Long term (current) use of mitotic inhibitor; Z90.13 Acquired absence of bilateral breasts and nipples; Z90.710 Acquired absence of both cervix and uterus; Z79.899 Other long term (current) drug therapy; Z79.52 Long term (current) use of systemic steroids
CPT/HCPCS: 78815; 80053; 83615; 83735; 85025; 86300; 96375; 96413; 96417; 99214; A9552; J1200; J2270; J7050; J9264; J9355

== ENCOUNTER 2024-08-02 12:27 | Inpatient (IN) | payer MEDICARE, SELFPAY ==
[2024-08-02] VITALS (10 sets, daily range): BP systolic 134–167; BP diastolic 69–91; PULSE 65–100; RESP 16–20; TEMP 36.8; O2SAT 96–100; BMI 26.8
--- NOTE | 2024-08-02 13:40 | ECG_ITS ---
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 Measurements Intervals [place] Rate: 72 P: 58 OH: 162 QRS: 53 QRSD: 84 T: 52 QT: 368 QTc: 404 Interpretive Statements SINUS RHYTHM Compared to ECG 01/22/2024 14:43:44 Ectopic atrial rhythm no longer present Left posterior fascicular block no longer present Myocardial infarct finding no longer present Electronically Signed On 08-03-2024 00:00:50 CDT by Scot Roberson M.D. [email or web address]
--- NOTE | 2024-08-02 15:30 | CT_ITS ---
WS: [id number] CT HEAD NONCONTRAST HISTORY: weakness TECHNIQUE: Contiguous axial imaging performed through the brain. Bone and soft tissue windows. Sagitt al and coronal reformats reviewed. All CT scans at [facility] use at least one of these dose optimization techniques: automated exposure control; mA and/or kV adjustment per patient size (includ es targeted exams where dose is matched to clinical indication); or iterative reconstruction. DLP: 1193.42 mGy.cm COMPARISON: 05/17/2021 No acute intracranial hemorrhage, midline shift or mass effect. Mild bilateral atrophy and small vessel disease. Minimal cerebellar atrophy. Ventricles: Normal size with no hydrocephalus. No inferior displacement of the cerebellar tonsils. Paranasal sinuses: As visualized are clear. Mastoid air cells: Well pneumatized. Calvarium and scalp: Skull is intact with no soft tissue edema or swelling. CT/CT head wo con* [id number] IMPRESSION: 1. No acute intracranial hemorrhage or edema. 2. Mild atrophy and small vessel disease.
--- NOTE | 2024-08-02 15:30 | XRR_ITS ---
PROCEDURE INFORMATION: Exam: XR Chest Exam date and time: 08/02/2024 3:37 PM Age: 79 years old Clinical indication: Injury or trauma; Fall; Blunt trauma (contusions or hematomas); Prior surgery; Surgery date: 6+ months; Surgery type: Manolo breast TECHNIQUE: Imaging protocol: Radiologic exam of the chest. Views: 1 view. COMPARISON: CR XR chest 1V portable [id number] 04/22/2024 9:12 AM FINDINGS: Tubes, catheters and devices: Left subclavian chest port in position, tip terminates at the cavoatrial junction. Lungs: Patchy density in the retrocardiac region indicating left lower lobe atelectasis versus infiltrate. Pleural spaces: No pleural effusion or pneumothorax noted. Heart/Mediastinum: There is cardiomegaly. Bones/joints: No acute osseous abnormality. Mild dextroconvex scoliosis of the thoracic spine. Soft tissues: There are clips in the soft tissues in both axillary/breast tissue. XR/XR chest 1V portable [id number] IMPRESSION: Left lower lobe atelectasis versus early infiltrate.
--- NOTE | 2024-08-02 15:30 | XRR_ITS ---
PROCEDURE INFORMATION: Exam: XR Pelvis Exam date and time: 08/02/2024 3:38 PM Age: 79 years old Clinical indication: Injury or trauma; Fall; Blunt trauma (contusions or hematomas); Bilateral; Pelvic region TECHNIQUE: Imaging protocol: Radiologic exam of the pelvis. Views: 1 or 2 view. COMPARISON: CT chest abdpel w/*[id number] 04/19/2024 12:33 PM FINDINGS: Bones/joints: Sclerotic region in the right iliac wing is again noted. no fractures or dislocations. Soft tissues: Unremarkable. XR/XR pelvis 1-2V* [id number] IMPRESSION: No acute findings.
--- NOTE | 2024-08-02 15:31 | ED_ITS ---
HPI - Weakness 2 General: Chief complaint: Weakness Stated complaint: Fall Time Seen by Provider: 08/02/24 15:24 Source: patient Mode of arrival: ambulatory Limitations: no limitations History of Present Illness: 79-year-old female who has a history of breast cancer is currently on chemotherapy states she has been having increasing weakness. She states that she has been having a difficult time walking due to her weakness. States she has had 3 falls in the last 5 days. States she does use a walker. She denies hitting her head she denies any fever family states she has had some increased confusion it has been going on for quite some time as well. No vomiting no diarrhea. Associated symptoms: Denies chest pain, chills, fever(s), headache(s), nausea or vomiting Review of Systems 2 Const: Reports: fatigue and malaise; Denies: fever(s), chills, body aches or change in appetite ENMT: Denies: throat pain or dental pain Card: Denies: chest pain Resp: Denies: dyspnea GI: Denies: abdominal pain, nausea, vomiting or diarrhea Musc: Denies: neck pain or back pain Skin/Breast: Denies: rash Neuro: Denies: headache(s) PFSH ED 2 PFSH: Medical History Breast cancer Ductal carcinoma in situ of right breast Asthma Insomnia Fatigue Atherosclerotic heart disease Back pain Fibromyalgia Osteoarthritis Neuropathy Hyperlipidemia HTN (hypertension) Hypothyroidism History of CVA (cerebrovascular accident) Surgical History S/P knee replacement Total right - 07/2006, Total left - 02/2007 S/P angioplasty 08/2004 - 2 stents placed S/P rotator cuff repair Right shoulder S/P cataract extraction Bilateral - Prosthetic lenses now Hx of excision of lamina of cervical vertebra for decompression of spinal cord Dr Patel - 08/2014 S/P hysterectomy Status post lumbar laminectomy Dr Patel Family History Father Heart attack CAD (coronary artery disease) Brother CAD (coronary artery disease) Mother Cancer Lung disease TB Tuberculosis Grandfather Dementia Stroke Family/Other Diabetes Suicide Denies family history of Clotting disorder Chronic kidney disease (CKD) Anesthesia complication Bleeding disorder Social History Smoking and tobacco/nicotine status: never used tobacco/nicotine Alcohol intake: current Marital status: Current gender identity: Female Physical Exam 2 Const: COMMON NORMALS: no acute distress, patient oriented x3 and healthy appearing HENMT: COMMON NORMALS: normocephalic and atraumatic HEAD & SCALP: n ormocephalic and atraumatic Eye: COMMON NORMALS: conjunctivae normal CONJUNCTIVA: Yes conjunctivae normal Neck/C-Spine: COMMON NORMALS: full ROM and supple Chest: COMMONS NORMALS: normal inspection of the chest Resp: COMMON NORMALS: normal respiratory effort, No retractions, No use of accessory muscles and clear to auscultation bilaterally AUSCULTATION: clear to auscultation bilaterally Cardio: COMMON NORMALS: regular rate, regular rhythm and No murmurs present (Cardio) RATE: regular rate RHYTHM: regular rhythm Extremity: COMMON NORMALS: normal to inspection and full ROM Neuro: COMMON NORMALS: patient oriented x3, moves all extremities and no focal motor deficits Psych: COMMON NORMALS: mental status grossly normal, Normal thought process present and cooperative THOUGHT PROCESS: Normal thought process present Skin: COMMON NORMALS: no rashes or lesions noted and no wounds GENERAL SKIN EXAM: no rashes or lesions noted Course 2 Vital Signs: Vital signs: Vital Signs Temperature 98.2 F 08/02/24 13:29 Pulse Rate 72 08/02/24 15:52 Respiratory Rate 20 H 08/02/24 13:29 Blood Pressure 151/91 08/02/24 15:52 Pulse Oximetry 100 08/02/24 15:52 Oxygen Delivery Me thod Room Air 08/02/24 15:52 MDM - Weakness Medical Decision Making Patient presents here with generalized weakness she does have a UTI as per the hospitalist will admit for the cystitis along with the weakness. Medical Records I reviewed the patient's medical records. Lab Data I reviewed the patient's lab results. 08/02/24 16:37 08/02/24 16:37 Radiology Impressions Chest X-Ray 08/02/24 15:30 IMPRESSION: Left lower lobe atelectasis versus early infiltrate. Head CT 08/02/24 15:30 IMPRESSION: 1. No acute intracranial hemorrhage or edema. 2. Mild atrophy and small vessel disease. Pelvis X-Ray 08/02/24 15:30 IMPRESSION: No acute findings. Laboratory Results WBC 5.46 10^3/uL (3.29-11.43) 08/02/24 16:37 RBC 3.55 10^6/uL (3.85-5.65) L 08/02/24 16:37 Hgb 10.10 g/dL (11.27-16.99) L 08/02/24 16:37 Hct 31.2 % (36-47) L 08/02/24 16:37 MCV 87.9 fl (85-98) 08/02/24 16:37 MCH 28.5 pg (27-33) 08/02/24 16:37 MCHC 32.4 g/dL (30-55) 08/02/24 16:37 RDW 20.6 % (12.1-15.1) H 08/02/24 16:37 Plt Count 210 10^3/cmm (157-399) 08/02/24 16:37 MPV 10.7 fL (7.4-10.4) H 08/02/24 16:37 Neut % (Auto) 65.3 % 08/02/24 16:37 Lymph % (Auto) 29.7 % 08/02/24 16:37 [place] % (Auto) 2.9 % 08/02/24 16:37 Eos % (Auto) 0.4 % 08/02/24 16:37 Baso % (Auto) 1.3 % 08/02/24 16:37 Neut # (Auto) 3.57 10^3/uL (1.8-7.7) 08/02/24 16:37 Lymph # (Auto) 1.6 10^3/uL (0.8-4.8) 08/02/24 16:37 [place] # (Auto) 0.2 10^3/uL (0.2-0.9) 08/02/24 16:37 Eos # (Auto) 0.0 10^3/uL (0.0-0.8) 08/02/24 16:37 Baso # (Auto) 0.1 10^3/uL (0.0-0.1) 08/02/24 16:37 Nucleated RBC % (auto) 0 % 08/02/24 16:37 Nucleated RBCs # 0.0 /100WBC 08/02/24 16:37 Sodium 130 mmol/L (136-145) L 08/02/24 16:37 Potassium 4.0 mmol/L (3.5-5.1) 08/02/24 16:37 Chloride 98 mmol/L (98-107) 08/02/24 16:37 Carbon Dioxide 22 mmol/L (22-29) 08/02/24 16:37 Anion Gap 14.0 (5-19) 08/02/24 16:37 BUN 14 mg/dL (8-23) 08/02/24 16:37 Creatinine 1.0 mg/dL (0.5-0.9) H 08/02/24 16:37 GFR Calculation Not Reportable 08/02/24 16:37 Glucose 118 mg/dL (65-115) H 08/02/24 16:37 Calculated Osmolality 272 mOsm/kg (285-295) L 08/02/24 16:37 Calcium 9.0 mg/dL (8.5-10.5) 08/02/24 16:37 Total Bilirubin 0.6 mg/dL (0.15-1.2) 08/02/24 16:37 AST 17 U/L (0-32) 08/02/24 16:37 ALT 12 U/L (0-33) 08/02/24 16:37 Alkaline Phosphatase 79 U/L (35-105) 08/02/24 16:37 Total Protein 6.4 g/dL (6.6-8.7) L 08/02/24 16:37 Albumin 4.0 g/dL (3.5-5.2) 08/02/24 16:37 Globulin 2.4 g/dL (1.3-4.6) 08/02/24 16:37 TSH 2.73 uIU/mL (0.27-4.20) 08/02/24 16:37 Urine Color Yellow (Yellow) 08/02/24 16:05 Urine Appearance Clear (CLEAR) 08/02/24 16:05 Urine pH 5.5 (5-7) 08/02/24 16:05 Ur Specific [place] 1.020 (1.005-1.030) 08/02/24 16:05 Urine Protein 1+ (Negative) A 08/02/24 16:05 Urine Glucose (UA) Negative (Normal) 08/02/24 16:05 Urine Ketones Trace (Negative) 08/02/24 16:05 Urine Blood 1+ (Negative) A 08/02/24 16:05 Urine Nitrate Negative (Negative) 08/02/24 16:05 Urine Bilirubin Negative (Negative) 08/02/24 16:05 Urine Urobilinogen 1.0 mg/dL (Negative) 08/02/24 16:05 Ur Leukocyte Esterase 2+ (Negative) A 08/02/24 16:05 Urine RBC 0-4 /hpf (0-2) H 08/02/24 16:05 Urine WBC 55-80 /hpf (0-5) H 08/02/24 16:05 Ur Squamous Epith Cells 0-4 /hpf (0-5) H 08/02/24 16:05 Amorphous Sediment Not Reportable 08/02/24 16:05 Urine Bacteria Trace /hpf (NONE) 08/02/24 16:05 Urine Mucus Trace /hpf 08/02/24 16:05 All radiology interpretation(s) finalized by discharge EKG Data EKG 1: I personally reviewed and interpreted this EKG as follows: EKG interpretation date: 08/02/24 EKG interpretation time: 15:53 Interpretation: nsr hr [address] or t wave abnormalities qrs 84 qtc 392 Discharge Plan Discharge Patient Disposition: Admitted As Inpatient Clinical Impression: Acute UTI, Weakness Condition: Stable Prescriptions: No Action calcium carbonate [Antacid (calcium carbonate)] 200 mg calcium (500 mg) tablet,chewable 400 mg PO BEDTIME Rx Instructions: USES TUMS Adult 50 Plus Probiotic 4 billion cell capsule 4,000 mmu cells PO DAILY Rx Instructions: administer with a meal albuterol sulfate [Ventolin HFA] 90 mcg/actuation HFA aerosol inhaler 2 puff inhalation Q6H PRN (Reason: shortness of breath or wheezing) Qty: 8.5 8RF lisinopril 20 mg tablet 20 mg PO DAILY isosorbide mononitrate 30 mg tablet extended release 24 hr 30 mg PO DAILY Qty: 30 5RF latanoprost 0.005 % drops 1 drp ophthalmic (eye) DAILY metoprolol tartrate 50 mg tablet 50 mg PO DAILY simvastatin 20 mg tablet PO lorazepam 1 mg tablet 0.5 - 1 mg PO Q6H PRN (Reason: Severe Nausea) Qty: 30 3RF Hold Instructions: does not wish to switch from alprazolam prochlorperazine maleate [Compazine] 10 mg tablet 10 mg PO Q4H PRN (Reason: Mild Nausea) Qty: 30 3RF fluconazole 100 mg tablet 100 mg PO DAILY Qty: 3 0RF Rx Instructions: Take 1 tab daily for 3 days hydrocortisone [Proctosol HC] 2.5 % cream with perineal applicator 1 applic SD BID PRN (Reason: hemorrhoids) Qty: 30 0RF (DME) Bedside commode See Rx Instructions .Route .MEDSUPPLY Qty: 1 0RF Rx Instructions: As directed pantoprazole 40 mg tablet,delayed release (DR/EC) 40 mg PO DAILY Qty: 30 8RF magnesium L-lactate [Magtab] 84 mg tablet extended release 84 mg PO BID Qty: 180 3RF Rx Instructions: Take 1 tab twice daily for palpitations nitroglycerin [Nitrostat] 0.4 mg tablet, sublingual 0.4 mg sublingual Q5M PRN (Reason: chest pain) Qty: 50 3RF Rx Instructions: do not exceed 3 doses per episode clopidogrel 75 mg tablet 75 mg PO DAILY Qty: 90 3RF Hold Instructions: Resume on 04/24/24. tizanidine 2 mg tablet 2 mg PO BEDTIME PRN (Reason: muscle spasticity) Qty: 30 2RF Rx Instructions: DISPENSE TABLETS. NOT CAPSULES levothyroxine 25 mcg tablet 25 mcg PO DAILY Qty: 90 0RF trazodone 50 mg tablet 50 mg PO BEDTIME Qty: 90 3RF furosemide 20 mg tablet See Rx Instructions .ROUTE .COMPLEX Qty: 15 0RF Dose Instruction: Take 1/2 (one-half) tablet by mouth once daily Rx Instructions: Take 1/2 (one-half) tablet by mouth once daily ferrous sulfate 325 mg (65 mg iron) tablet 325 mg PO .qod Qty: 30 2RF escitalopram oxalate 10 mg tablet 10 mg PO DAILY Qty: 30 0RF (DME) Walker See Rx Instructions .Route .MEDSUPPLY Qty: 1 0RF Rx Instructions: As directed cefuroxime axetil 500 mg tablet 500 mg PO BID 10 Days Qty: 20 0RF famotidine 20 mg tablet 20 mg PO BID Qty: 60 0RF oxycodone 15 mg tablet 15 mg PO Q6H PRN (Reason: pain) 30 Days Qty: 120 0RF Colace 100 mg capsule 100 mg PO BID Qty: 10 0RF Referrals: Eran Garcia MD [Primary Care Provider] - Coding Level of Care Code ED 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 Fwd Related Data Home Medications Medication Instructions Recorded Confirmed calcium carbonate (Antacid 400 mg PO BEDTIME 10/19/19 07/28/24 (calcium carbonate)) lactobacillus combination no.9 4 4,000 mmu cells PO DAILY 01/08/21 07/28/24 billion cell capsule (Adult 50 Plus Probiotic) lisinopril 20 mg tablet 20 mg PO DAILY 01/15/22 07/28/24 latanoprost 0.005 % eye drops 1 drp ophthalmic (eye) DAILY 01/01/24 07/28/24 metoprolol tartrate 50 mg tablet 50 mg PO DAILY 04/21/24 07/28/24 simvastatin 20 mg tablet mg PO 06/30/24 07/28/24 Previous Rx's Medication Instructions Recorded albuterol sulfate 90 mcg/actuation 2 puff inhalation Q6H PRN 09/03/21 aerosol inhaler (Ventolin HFA) shortness of breath or wheezing #8.5 grams pantoprazole 40 mg tablet,delayed 40 mg PO DAILY #30 tabs 01/07/22 release magnesium L-lactate 84 mg 84 mg PO BID #180 tabs 02/25/22 tablet,extended release (Magtab) nitroglycerin 0.4 mg sublingual 0.4 mg sublingual Q5M PRN chest 03/21/22 tablet (Nitrostat) pain #50 tabs clopidogrel 75 mg tablet 75 mg PO DAILY #90 tabs 05/13/22 tizanidine 2 mg tablet 2 mg PO BEDTIME PRN muscle 06/11/22 spasticity #30 tabs levothyroxine 25 mcg tablet 25 mcg PO DAILY #90 tabs 07/15/22 trazodone 50 mg tablet 50 mg PO BEDTIME #90 tabs 07/15/22 furosemide 20 mg tablet See Rx Instructions .Route 08/16/22 .COMPLEX #15 tabs isosorbide mononitrate 30 mg 30 mg PO DAILY #30 tabs 01/22/24 tablet,extended release 24 hr ferrous sulfate 325 mg (65 mg 325 mg PO .qod #30 tabs 04/07/24 iron) tablet docusate sodium 100 mg capsule 100 mg PO BID #10 caps 04/22/24 (Colace) lorazepam 1 mg tablet 0.5 - 1 mg (0.5 - 1 x 1 mg) PO Q6H 05/03/24 PRN Severe Nausea #30 tabs prochlorperazine maleate 10 mg 10 mg PO Q4H PRN Mild Nausea #30 05/03/24 tablet (Compazine) tabs escitalopram oxalate 10 mg tablet 10 mg PO DAILY #30 tabs 05/28/24 Walker #1 ea 05/31/24 cefuroxime axetil 500 mg tablet 500 mg PO BID 10 days #20 tabs 06/21/24 fluconazole 100 mg tablet 100 mg PO DAILY #3 tabs 07/07/24 hydrocortisone 2.5 % topical cream 1 applic SD BID PRN hemorrhoids 07/07/24 with perineal applicator #30 grams (Proctosol HC) famotidine 20 mg tablet 20 mg PO BID #60 tabs 07/12/24 Bedside commode #1 ea 07/21/24 oxycodone 15 mg tablet 15 mg PO Q6H PRN pain 30 days #120 07/22/24 tabs Allergies Allergy/AdvReac Type Severity Reaction Status Date / Time iodine Allergy ADR-Itching Verified 07/21/24 08:26 povidone-iodine Allergy ADR-Itching Verified 08/02/24 16:17 streptomycin Allergy Unknown Verified 07/21/24 08:26
[2024-08-02 16:14] LABS: Bilirubin Urine Negative (Negative); Blood Urine 1+ (Negative); Glucose Urine UA Negative (Normal); Ketones Urine Trace (Negative); Leukocyte Esterase Urine 2+ (Negative); Nitrate Urine Negative (Negative); Protein Urine 1+ (Negative); Urine Appearance Clear (CLEAR); Urine Color Yellow (Yellow); pH Urine 5.5 (5-7)
[2024-08-02 16:41] LABS: Add Urine Microscopic? YES; Bacteria Urine TRACE /hpf; RBC Urine 0-4 /hpf (0-2); Squamous Epithelial Cell Urine 0-4 /hpf (0-5); WBC Urine 55-80 /hpf (0-5)
[2024-08-02 16:43] LABS: Add Urine Culture? Yes; Mucus Urine TRACE /hpf
[2024-08-02 16:46] LABS: Basophils # 0.1 10^3/uL (0.0-0.1); Basophils % 1.3 %; Eosinophils % 0.4 %; Hematocrit 31.2 % (36-47); Lymphocytes # 1.6 10^3/uL (0.8-4.8); Lymphocytes % 29.7 %; Mean Corpuscular HGB Conc 32.4 g/dL (30-55); Mean Corpuscular Hemoglobin 28.5 pg (27-33); Mean Corpuscular Volume 87.9 fl (85-98); Mean Platelet Volume 10.7 fL (7.4-10.4); Monocytes # 0.2 10^3/uL (0.2-0.9); Monocytes % 2.9 %; Neutrophils # 3.57 10^3/uL (1.8-7.7); Neutrophils % 65.3 %; Nucleated Red Blood Cells % 0 %; Platelet Count 210 10^3/cmm (157-399); Red Blood Count 3.55 10^6/uL (3.85-5.65); Red Cell Distribution Width 20.6 % (12.1-15.1); White Blood Count 5.46 10^3/uL (3.29-11.43)
[2024-08-02 17:28] LABS: Alanine Aminotransferase 12 U/L (0-33); Alkaline Phosphatase 79 U/L (35-105); Aspartate Amino Transferase 17 U/L (0-32); Blood Urea Nitrogen 14 mg/dL (8-23); Carbon Dioxide 22 mmol/L (22-29); Chloride 98 mmol/L (98-107); Creatinine Clr Calc Pharmacy 44.1677; Globulin 2.4 g/dL (1.3-4.6); Glucose 118 mg/dL (65-115); Osmolality Calculated 272 mOsm/kg (285-295); Sodium 130 mmol/L (136-145); Thyroid Stimulating Hormone 2.73 uIU/mL (0.27-4.20); Total Bilirubin 0.6 mg/dL (0.15-1.2); Total Protein 6.4 g/dL (6.6-8.7)
--- NOTE | 2024-08-02 17:43 | P.HP_ITS ---
Providers/Chief Complaint 2 Primary Care Provider: Eran Garcia MD Chief Complaint: Fall History of Present Illness Marcy Byers is a 79 year old female chemotherapy 7/12 cycles with last cycle 3 weeks ago, hypertension, hypothyroidism, CAD post PCI more than 10 years ago who lives at home with an elderly presents to the ER today with elevated generalized weakness increasing over the last 3 weeks worsened over the last 1 week. Patient has had multiple falls over last 1 week. Most of the falls are associated with dizziness when she stands up. Denies hitting her head on any of the falls. She is complaining of having diarrhea till around 1 week ago. Denies any dysuria other than increased frequency over the last 3 weeks. She was treated for UTI as an outpatient by her oncologist with cefuroxime. Patient otherwise denies any nausea, vomiting, chest pain. Currently she is scared to get out of bed and go to her bedside commode because of fall. Review of Systems 2 General: Reports: 10 or more systems reviewed and unremarkable except in HPI and below Const: Denies: fever(s), chills, body aches, change in appetite, change in weight, malaise, night sweats, diaphoresis, change in sleep pattern, daytime sleepiness or snoring Eyes: Denies: change in vision, blurry vision, photophobia, eye discomfort or eye discharge ENMT: Denies: throat pain, enlarged tonsils, hoarseness, mouth pain, oral sores, dry mouth, tinnitus, nasal congestion or post nasal drip Card: Denies: chest pain, palpitations, irregular heart rhythm, edema, swelling of feet/ankles, lightheadedness, syncope, pre-syncope, dyspnea on exertion, orthopnea, leg pain with exertion or acrocyanosis Resp: Denies: dyspnea, productive cough, non-productive cough, wheezing, stridor, pain on inspiration, change in phlegm color, hemoptysis or chest congestion GI: Denies: abdominal pain, nausea, vomiting, hematemesis, coffee ground emesis, dysphagia, heartburn, diarrhea, constipation, bloating, GI cramping, change in bowel habits, pain on defecation, hematochezia or melena : Denies: flank pain, dysuria, urinary frequency, urinary urgency, urinary hesitancy, nocturia or hematuria Musc: Denies: neck pain, back pain, extremity pain, joint pain, joint swelling, joint redness, joint stiffness or limited range of motion Neuro: Denies: headache(s), numbness in extremities, weakness in extremities, sensory changes, lack of coordination, difficulty walking, frequent falls, dizziness, vertigo, confusion, Slurred speech present, difficulty communicating thoughts or seizure-like activity Psych: Denies: anxiety, depression, mood swings, panic attacks, hopelessness or irritability Endo: Denies: polyuria, polydipsia, tired all the time, cold intolerance, excessive sweating, flushing or heat intolerance Neel/Lymph: Denies: easy bruising or easy bleeding All/Imm: Denies: tongue swelling, facial swelling or acute wheezing Medications/Allergies Home Medications Medication Instructions Recorded Confirmed Last Taken Type calcium carbonate (Antacid 400 mg PO BEDTIME 10/19/19 08/03/24 05/16/21 History (calcium carbonate)) lactobacillus combination no.9 4 4,000 mmu cells PO DAILY 01/08/21 08/03/24 05/17/21 History billion cell capsule (Adult 50 Plus Probiotic) albuterol sulfate 90 mcg/actuation 2 puff inhalation Q6H PRN 09/03/21 08/03/24 04/22/24 06:08 Rx aerosol inhaler (Ventolin HFA) shortness of breath or wheezing #8.5 grams pantoprazole 40 mg tablet,delayed 40 mg PO DAILY #30 tabs 01/07/22 08/03/24 04/21/24 Rx release lisinopril 20 mg tablet 20 mg PO DAILY 01/15/22 08/03/24 04/21/24 History magnesium L-lactate 84 mg 84 mg PO BID #180 tabs 02/25/22 08/03/24 04/21/24 Rx tablet,extended release (Magtab) nitroglycerin 0.4 mg sublingual 0.4 mg sublingual Q5M PRN chest 03/21/22 08/03/24 Unknown Rx tablet (Nitrostat) pain #50 tabs clopidogrel 75 mg tablet 75 mg PO DAILY #90 tabs 05/13/22 08/03/24 04/18/24 Rx tizanidine 2 mg tablet 2 mg PO BEDTIME PRN muscle 06/11/22 08/03/24 04/21/24 Rx spasticity #30 tabs levothyroxine 25 mcg tablet 25 mcg PO DAILY #90 tabs 07/15/22 08/03/24 04/21/24 Rx trazodone 50 mg tablet 50 mg PO BEDTIME #90 tabs 07/15/22 08/03/24 04/21/24 Rx latanoprost 0.005 % eye drops 1 drp ophthalmic (eye) DAILY 01/01/24 08/03/24 04/21/24 History isosorbide mononitrate 30 mg 30 mg PO DAILY #30 tabs 01/22/24 08/03/24 04/21/24 Rx tablet,extended release 24 hr ferrous sulfate 325 mg (65 mg 325 mg PO .qod #30 tabs 04/07/24 08/03/24 04/21/24 Rx iron) tablet metoprolol tartrate 50 mg tablet 50 mg PO DAILY 04/21/24 08/03/24 04/21/24 History docusate sodium 100 mg capsule 100 mg PO BID #10 caps 04/22/24 08/03/24 Unknown Rx (Colace) lorazepam 1 mg tablet 0.5 - 1 mg (0.5 - 1 x 1 mg) PO Q6H 05/03/24 08/03/24 Unknown Rx PRN Severe Nausea #30 tabs prochlorperazine maleate 10 mg 10 mg PO Q4H PRN Mild Nausea #30 05/03/24 08/03/24 Unknown Rx tablet (Compazine) tabs escitalopram oxalate 10 mg tablet 10 mg PO DAILY #30 tabs 05/28/24 08/03/24 Unknown Rx Walker #1 ea 05/31/24 08/03/24 Unknown Rx cefuroxime axetil 500 mg tablet 500 mg PO BID 10 days #20 tabs 06/21/24 08/03/24 Unknown Rx simvastatin 20 mg tablet 20 mg PO DAILY 06/30/24 08/03/24 Unknown History hydrocortisone 2.5 % topical cream 1 applic [place] BID PRN hemorrhoids 07/07/24 08/03/24 Unknown Rx with perineal applicator #30 grams (Proctosol HC) famotidine 20 mg tablet 20 mg PO BID #60 tabs 07/12/24 08/03/24 Unknown Rx Bedside commode #1 ea 07/21/24 08/03/24 Unknown Rx oxycodone 15 mg tablet 15 mg PO Q6H PRN pain 30 days #120 07/22/24 08/03/24 Unknown Rx tabs furosemide 20 mg tablet 20 mg PO DAILY 08/03/24 08/03/24 Unknown History Allergies Allergy/AdvReac Type Severity Reaction Status Date / Time iodine Allergy ADR-Itching Verified 07/21/24 08:26 povidone-iodine Allergy ADR-Itching Verified 08/02/24 16:17 streptomycin Allergy Unknown Verified 07/21/24 08:26 PFSH Acute 2 PFSH: Medical History (Updated 08/02/24 @ 17:45 by Nazario Duenas MD) Bleeding hemorrhoids Hematochezia TIA (transient ischemic attack) Breast cancer Ductal carcinoma in situ of right breast Asthma Insomnia Fatigue Atherosclerotic heart disease Back pain Fibromyalgia Osteoarthritis Neuropathy Hyperlipidemia HTN (hypertension) Hypothyroidism History of CVA (cerebrovascular accident) Surgical History S/P knee replacement Total right - 07/2006, Total left - 02/2007 S/P angioplasty 08/2004 - 2 stents placed S/P rotator cuff repair Right shoulder S/P cataract extraction Bilateral - Prosthetic lenses now Hx of excision of lamina of cervical vertebra for decompression of spinal cord Dr Patel - 08/2014 S/P hysterectomy Status post lumbar laminectomy Dr Patel Family History Father Heart attack CAD (coronary artery disease) Brother CAD (coronary artery disease) Mother Cancer Lung disease TB Tuberculosis Grandfather Dementia Stroke Family/Other Diabetes Suicide Denies family history of Clotting disorder Chronic kidney disease (CKD) Anesthesia complication Bleeding disorder Social History Smoking and tobacco/nicotine status: never used tobacco/nicotine Alcohol intake: current Marital status: Current gender identity: Female Vitals/I&O/Wt Last Vital Signs Temp 98.2 F 08/02/24 13:29 Pulse 72 08/02/24 15:52 Resp 20 H 08/02/24 13:29 BP 151/91 08/02/24 15:52 Pulse Ox 100 08/02/24 15:52 O2 Del Method Room Air 08/02/24 15:52 Weight last 48 hrs Weight 73.028 kg Physical Exam 2 Narrative: General: No acute distress, AO x3, chronically sick appearing, dehydrated HEENT: PERRLA, pupils bilaterally equal and reactive Chest: Normal vesicular breath sounds, no added sounds, equal good air entry bilaterally CVS: S1-S2 regular, no murmurs, no tachycardia, no gallops, no rubs Abdomen: Soft, nontender, no organomegaly, bowel sounds present Neuro: No focal deficits, no facial deformity, AO x3, power 5/5 in all limbs Data 08/03/24 04:44 08/03/24 04:44 A&P Assessment and plan (1) Weakness: Most likely multifactorial with combination of hyponatremia due to dehydration, recent chemotherapy with mild UTI leading to multiple falls. Physical therapy evaluation. Fall precautions. (2) Acute UTI: Patient has been treated over last 3 weeks as an outpatient with cefuroxime. Mild symptoms of increased frequency. Follow-up blood culture, urine culture. For now start on IV ceftriaxone. (3) Falls: Check orthostatics. Fall precautions (4) Hyponatremia: Most likely in setting of dehydration with recent diarrhea. No further diarrhea currently. Normal saline at 75 cc/h. Check urine lites, urine creatinine. Monitor BMP daily. 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 Finished 7 out of 12 cycles of chemotherapy (6) Atherosclerotic heart disease of [place] coronary artery with other forms of angina pectoris: With PCI multiple years ago. Denies any chest pain. Check troponin cycle. Last echocardiogram from January 2024 showed an EF of 58% with grade 1 diastolic dysfunction. (7) HTN (hypertension): Goal blood pressure less than 140/90 mmHg. Continue with home isosorbide 30 mg daily, lisinopril 20 mg daily, metoprolol changed to 25 mg twice daily. Will uptitrate as for goal blood pressure. Qualifiers: Hypertension type: essential hypertension Qualified Code(s): I10 - Essential (primary) hypertension (8) Anxiety and depression: Continue with home dose of escitalopram, Xanax as needed Plan Check D-dimer, proBNP, TSH, lipid panel, A1c, B12, folate. CODE STATUS: Discussed in detail with the patient. Granddaughter will be the DPOA. Patient does not want any heroic measures in case of cardiac arrest. DNR/DNI. Cardiac diet Physical therapy evaluation Heparin 5000 every 12 hourly for DVT prophylaxis Protonix OPD prophylaxis Discharge plan: Elderly female lives with elderly with recurrent falls and worsening weakness over the last 3 weeks in setting of chemotherapy and UTI. Patient requesting transfer to SNF if possible. For now plan for discharge will be home with home health versus SNF depending on PT evaluation. 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
--- NOTE | 2024-08-02 17:55 | ECG_ITS ---
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 Measurements Intervals [place] Rate: 68 P: 13 AR: 142 QRS: 22 QRSD: 80 T: 30 QT: 367 QTc: 393 Interpretive Statements SINUS RHYTHM MINIMAL ST DEPRESSION [0.025+ mV ST DEPRESSION] Compared to ECG 08/02/2024 15:53:19 ST (T wave) deviation now present Electronically Signed On 08-03-2024 00:00:57 CDT by Scot Roberson M.D. [id number]
[2024-08-02 18:14] LABS: D Dimer 2.54 ug/mLFEU (0-0.59)
[2024-08-02] MEDS: cefTRIAXone 1,000 mg SDV 1000 MG IVP ×2 (18:15→21:06)
[2024-08-02] MEDS: ondansetron 2 mg/ML SDV 2 mL 4 MG IVP (18:51)
[2024-08-02] MEDS: morphine 4 mg/mL SDV 1 mL IVP (18:52)
[2024-08-02 18:58] LABS: Troponin(5th) Baseline 14 ng/L (0-10)
[2024-08-02 19:38] LABS: NT Pro B Type Natriuretic Pept 64 pg/mL (0-450); Procalcitonin 0.11 ng/mL (0-0.5)
--- NOTE | 2024-08-02 19:55 | ECG_ITS ---
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 Measurements Intervals [place] Rate: 64 P: 41 [place]: 163 QRS: 24 QRSD: 96 T: 30 QT: 401 QTc: 416 Interpretive Statements SINUS RHYTHM Compared to ECG 08/02/2024 18:39:14 ST (T wave) deviation no longer present Electronically Signed On 08-03-2024 00:54:32 CDT by Scot Roberson M.D. [email or web address]
[2024-08-02] MEDS: docusate sodium 100 mg Capsule PO (21:06)
[2024-08-02] MEDS: heparin 5,000 unit/mL INJ 1 mL 5000 UNIT SUBCUT (21:06)
[2024-08-02] MEDS: trazodone 50 mg Tablet PO (21:06)
[2024-08-02] MEDS: sodium chloride 0.9% 1,000 ML 75 ML IV (21:06)
[2024-08-02] MEDS: metoprolol tartrate 50 mg Tablet 25 MG PO (21:06)
[2024-08-02] MEDS: oxyCODONE 5 mg IR Tab/Cap 15 MG PO (21:17)
[2024-08-02 23:25] LABS: Troponin 5 6HR 15.62 ng/L (0-10); Troponin 5 6HR Delta 1.62 ng/L (0-12)
[2024-08-02 23:51] LABS: Vitamin B12 436 pg/mL (232-1245)
--- NOTE | 2024-08-02 23:55 | ECG_ITS ---
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 Measurements Intervals [place] Rate: 71 P: 56 [place]: 164 QRS: 37 QRSD: 77 T: 47 QT: 372 QTc: 405 Interpretive Statements SINUS RHYTHM Compared to ECG 08/02/2024 22:20:48 No significant changes Electronically Signed On 08-03-2024 11:11:11 CDT by Ramesh Silva M.D. [id number]
[2024-08-03] VITALS (11 sets, daily range): BP systolic 100–174; BP diastolic 54–82; PULSE 64–88; RESP 16–19; TEMP 36.4–37.1; O2SAT 95–98
[2024-08-03] MEDS: oxyCODONE 5 mg IR Tab/Cap 15 MG PO ×2 (04:04→17:30)
[2024-08-03 04:55] LABS: Basophils # 0.1 10^3/uL (0.0-0.1); Basophils % 1.4 %; Eosinophils % 0.9 %; Hematocrit 29.7 % (36-47); Lymphocytes # 1.2 10^3/uL (0.8-4.8); Lymphocytes % 28.5 %; Mean Corpuscular Hemoglobin 28.9 pg (27-33); Mean Corpuscular Volume 90.3 fl (85-98); Mean Platelet Volume 10.4 fL (7.4-10.4); Monocytes # 0.2 10^3/uL (0.2-0.9); Monocytes % 3.9 %; Neutrophils # 2.81 10^3/uL (1.8-7.7); Neutrophils % 65.1 %; Nucleated Red Blood Cells % 0 %; Platelet Count 179 10^3/cmm (157-399); Red Blood Count 3.29 10^6/uL (3.85-5.65); Red Cell Distribution Width 20.3 % (12.1-15.1); White Blood Count 4.32 10^3/uL (3.29-11.43)
[2024-08-03 05:09] LABS: Estmated Average Glucose 97
[2024-08-03 05:15] LABS: Chol HDL Ratio 3.68 mg/dL (0.0-4.40); Cholesterol 140 mg/dL (0-200); HDL Cholesterol 38 mg/dL (60-100); LDL Cholesterol Calculated 78 mg/dL (50-129); LDL HDL Ratio 2.05 RATIO (0.00-3.22); Triglycerides 120 mg/dL (0-150)
[2024-08-03 05:16] LABS: Alanine Aminotransferase 10 U/L (0-33); Albumin Level 3.7 g/dL (3.5-5.2); Alkaline Phosphatase 73 U/L (35-105); Aspartate Amino Transferase 17 U/L (0-32); Blood Urea Nitrogen 10 mg/dL (8-23); Calcium 8.5 mg/dL (8.5-10.5); Carbon Dioxide 20 mmol/L (22-29); Chloride 103 mmol/L (98-107); Creatinine Clr Calc Pharmacy 49.1315; Globulin 1.9 g/dL (1.3-4.6); Glucose 127 mg/dL (65-115); Magnesium 1.7 mg/dL (1.7-2.3); Osmolality Calculated 281 mOsm/kg (285-295); Phosphorus 2.8 mg/dL (2.5-4.5); Sodium 135 mmol/L (136-145); Total Bilirubin 0.4 mg/dL (0.15-1.2); Total Protein 5.6 g/dL (6.6-8.7)
[2024-08-03 05:21] LABS: Procalcitonin 0.09 ng/mL (0-0.5)
[2024-08-03 05:35] LABS: Folate Level 2.8 ng/mL (4.8-37.3)
[2024-08-03] MEDS: heparin 5,000 unit/mL INJ 1 mL 5000 UNIT SUBCUT ×2 (07:34→20:20)
--- NOTE | 2024-08-03 08:33 | USCV_ITS ---
Marcy Byers Age: 79 Gender: F : 1945 Exam Date: 08/03/2024 18:10 Ordering Phys: Nazario Duenas MD Technologist: MORRO Exam Location: [facility] [place] Indication: elevated d-dimer. HISTORY: elevated d-dimer. PROCEDURES: Venous duplex imaging was performed in bilateral lower extremities. The following venous structures were evaluated: common femoral vein, profunda vein, proximal portion of the greater saphenous vein, superficial femoral vein, and the popliteal vein. In addition, the posterior tibial and peroneal veins were evaluated. FINDINGS: Normal 2-D Doppler and augmentation and compressibility throughout the lower extremity venous structures. Additional imaging through the proximal calf veins also reveals no thrombus. Limited evaluation of the greater saphenous vein is patent with no thrombus. CONCLUSIONS No DVT bilateral lower extremities. Dr. Polly Freitas DO (Electronically Signed) Final Date: 04 August 2024 08:21 S
[2024-08-03] MEDS: lisinopril 20 mg Tablet PO (09:30)
[2024-08-03] MEDS: isosorbide mononitrate ER 30 mg Tablet PO (09:30)
[2024-08-03] MEDS: docusate sodium 100 mg Capsule PO ×2 (09:30→17:32)
[2024-08-03] MEDS: escitalopram 10 mg Tablet PO (09:31)
[2024-08-03] MEDS: pantoprazole DR 40 mg Tablet PO (09:31)
[2024-08-03] MEDS: folic acid 1 mg Tablet PO ×2 (09:31→17:32)
[2024-08-03] MEDS: metoprolol tartrate 50 mg Tablet 25 MG PO ×2 (09:31→17:34)
[2024-08-03] MEDS: clopidogrel 75 mg Tablet PO (09:31)
[2024-08-03] MEDS: levothyroxine 25 mcg Tablet PO (09:31)
--- NOTE | 2024-08-03 09:35 | PC.CHAP ---
Pastoral Care Encounter/Spiritual Assessment Type of Contact [] Declined commercial relief driver visit [] Patient/Family/Request visit [] Outpatient visit [] Follow-up visit [] Physician referral [] Code/Alert [x] Routine visit [] Staff referral [] Actively dying [] Patient sleeping [] Family support [] [] Out of room [] Palliative care [] [] Receiving care in room [] Pre-surgical visit [] Trauma [] Long length of stay [] ICU visit [] Other: Relational/Emotional Strength [x] Patient feels connected with others/family/visitors/staff [] Distress [] Loneliness/isolation [] Abandonment Spirituality of Patient [x] Person of Ofe [x] Attends Presybeterian of their Ofe [x] Believes in Prayer [x] Reads Bible or Restorationism materials [] There are Spiritual issues to be addressed Telecommunications Field Engineer Interventions [x] Prayer [x] Active listening [] Non-anxious presence [x] Spiritual/emotional support [] Crisis/trauma care [] Spiritual counseling [] Bereavement support [] Provided bereavement packet [] Provided Bible/devotional materials [] Provided toy/stuffed animal, coloring book to patient or family member [] Provided Communion [] Anointing/[place] [] Salvation [x] Completed spiritual assessment [] Other: Impact on Illness or Injury [] Angry [] Fearful [] Anxious [] Often cries [] Exhaustion [] Unable to work [] Unable to attend latter day [] Unable to walk/stand [] Unable to read [] Unable to drive [] Unable to eat/drink [] Unable to sleep [] Unable to be with family [] Patient intubated [] Other: Summary Time spent with patient 10 min
--- NOTE | 2024-08-03 14:35 | PM.PN ---
Subjective Subjective: No acute vents overnight. Patient seen with family at bedside. She denies any nausea, vomiting, headache. Denies any new complaints. Hemodynamically has remained stable and afebrile. Vitals/I&O/Wt Last Vital Signs Temp 98.7 F 08/03/24 12:00 Pulse 76 08/03/24 12:00 Resp 17 08/03/24 12:00 BP 126/69 08/03/24 12:00 Pulse Ox 95 08/03/24 12:00 O2 Del Method Room Air 08/03/24 12:00 08/02/24 08/03/24 08/03/24 22:59 06:59 14:59 Intake Total 120 / 120 480 / 600 480 / 480 Output Total 400 / 400 Balance 120 / 120 80 / 200 480 / 480 Weight last 48 hrs Weight 74.843 kg Weight 73.21 kg Weight 73.028 kg Weight 73.028 kg Physical Exam Narrative: General: No acute distress, AO x3, chronically sick appearing, dehydrated HEENT: PERRLA, pupils bilaterally equal and reactive Chest: Normal vesicular breath sounds, no added sounds, equal good air entry bilaterally CVS: S1-S2 regular, no murmurs, no tachycardia, no gallops, no rubs Abdomen: Soft, nontender, no organomegaly, bowel sounds present Neuro: No focal deficits, no facial deformity, AO x3, power 5/5 in all limbs Data 08/03/24 04:44 08/03/24 04:44 Micro: Microbiology 08/02/24 16:05 Bacterial Antigens - Final Urine Kidney 08/02/24 19:05 Blood Culture - Preliminary Blood SPECIMEN COLLECTED 08/02/24 18:58 Blood Culture - Preliminary Blood SPECIMEN COLLECTED A&P Assessment and plan (1) Weakness: Most likely multifactorial with combination of hyponatremia due to dehydration, recent chemotherapy with mild UTI leading to multiple falls. Physical therapy evaluation. Still pending. Fall precautions. (2) Acute UTI: Patient has been treated over last 3 weeks as an outpatient with cefuroxime. Mild symptoms of increased frequency. Follow-up blood culture, urine culture. Continue with IV ceftriaxone for now. De-escalate as per culture results. If remains [place] for next 48 hours will discontinue IV antibiotics. (3) Falls: Orthostatics appreciated. Negative so far. Mild tachycardia on starting up. Fall precautions (4) Hyponatremia: Most likely in setting of dehydration with recent diarrhea. No further diarrhea currently. Continue with normal saline at 75 cc/h. Appreciate urine lites, urine creatinine. Monitor BMP daily. 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 Finished 7 out of 12 cycles of chemotherapy (6) Atherosclerotic heart disease of [place] coronary artery with other forms of angina pectoris: With PCI multiple years ago. Denies any chest pain. Troponin cycle negative. Last echocardiogram from January 2024 showed an EF of 58% with grade 1 diastolic dysfunction. (7) HTN (hypertension): Goal blood pressure less than 140/90 mmHg. Continue with home isosorbide 30 mg daily, lisinopril 20 mg daily, metoprolol changed to 25 mg twice daily. Will uptitrate as for goal blood pressure. Qualifiers: Hypertension type: essential hypertension Qualified Code(s): I10 - Essential (primary) hypertension (8) Anxiety and depression: Continue with home dose of escitalopram, Xanax as needed Plan D-dimer mildly elevated. Will check lower limb Dopplers. Patient does not have tachycardia or difficulty in breathing and remains on room. Concerns of pulmonary embolism. A1c normal. Appreciate lipid panel and iron panel. Low folic acid levels. Start on oral folate supplementation. CODE STATUS: Discussed in detail with the patient. Granddaughter will be the DPOA. Patient does not want any heroic measures in case of cardiac arrest. DNR/DNI. Cardiac diet Physical therapy evaluation Heparin 5000 every 12 hourly for DVT prophylaxis Protonix OPD prophylaxis Discharge plan: Elderly female lives with elderly with recurrent falls and worsening weakness over the last 3 weeks in setting of chemotherapy and UTI. Patient requesting transfer to SNF if possible. Plan to discharge to SNF. Case management alerted. 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
[2024-08-03] MEDS: acetaminophen 325 mg Tablet 650 MG PO (15:01)
[2024-08-03] MEDS: cefTRIAXone 1,000 mg SDV 1000 MG IVP (20:19)
[2024-08-03] MEDS: trazodone 50 mg Tablet PO (20:20)
[2024-08-03] MEDS: tizanidine 4 mg Tablet 2 MG PO (20:20)
[2024-08-04] VITALS (12 sets, daily range): BP systolic 108–175; BP diastolic 61–81; PULSE 74–89; RESP 16–19; TEMP 36.4–37.1; O2SAT 93–98
[2024-08-04] MEDS: oxyCODONE 5 mg IR Tab/Cap 15 MG PO ×3 (05:30→20:24)
[2024-08-04 06:39] LABS: Basophils # 0.1 10^3/uL (0.0-0.1); Basophils % 1.8 %; Eosinophils % 0.4 %; Hematocrit 28.6 % (36-47); Lymphocytes # 0.9 10^3/uL (0.8-4.8); Lymphocytes % 33.5 %; Mean Corpuscular HGB Conc 31.8 g/dL (30-55); Mean Corpuscular Hemoglobin 27.7 pg (27-33); Mean Corpuscular Volume 87.2 fl (85-98); Mean Platelet Volume 10.8 fL (7.4-10.4); Monocytes # 0.2 10^3/uL (0.2-0.9); Monocytes % 5.4 %; Neutrophils # 1.62 10^3/uL (1.8-7.7); Neutrophils % 58.2 %; Nucleated Red Blood Cells % 0 %; Platelet Count 192 10^3/cmm (157-399); Red Blood Count 3.28 10^6/uL (3.85-5.65); Red Cell Distribution Width 19.9 % (12.1-15.1); White Blood Count 2.78 10^3/uL (3.29-11.43)
[2024-08-04 07:06] LABS: Alanine Aminotransferase 10 U/L (0-33); Albumin Level 3.8 g/dL (3.5-5.2); Alkaline Phosphatase 75 U/L (35-105); Anion Gap 14.3 (5-19); Aspartate Amino Transferase 16 U/L (0-32); Blood Urea Nitrogen 8 mg/dL (8-23); Calcium 9.1 mg/dL (8.5-10.5); Carbon Dioxide 21 mmol/L (22-29); Chloride 101 mmol/L (98-107); Glucose 112 mg/dL (65-115); Osmolality Calculated 273 mOsm/kg (285-295); Potassium 4.3 mmol/L (3.5-5.1); Sodium 132 mmol/L (136-145); Total Bilirubin 0.3 mg/dL (0.15-1.2); Total Protein 5.8 g/dL (6.6-8.7)
[2024-08-04] MEDS: heparin 5,000 unit/mL INJ 1 mL 5000 UNIT SUBCUT ×2 (07:44→20:24)
[2024-08-04] MEDS: clopidogrel 75 mg Tablet PO (08:18)
[2024-08-04] MEDS: levothyroxine 25 mcg Tablet PO (08:18)
[2024-08-04] MEDS: lisinopril 20 mg Tablet PO (08:18)
[2024-08-04] MEDS: pantoprazole DR 40 mg Tablet PO (08:18)
[2024-08-04] MEDS: metoprolol tartrate 50 mg Tablet 25 MG PO ×2 (08:18→16:58)
[2024-08-04] MEDS: folic acid 1 mg Tablet PO ×2 (08:18→16:59)
[2024-08-04] MEDS: isosorbide mononitrate ER 30 mg Tablet PO (08:19)
[2024-08-04] MEDS: docusate sodium 100 mg Capsule PO (08:19)
[2024-08-04] MEDS: escitalopram 10 mg Tablet PO (08:19)
--- NOTE | 2024-08-04 12:44 | PC.SOCIAL ---
IMM Updated Updated pt on IMM. No questions voiced. Provided pt a copy. Initialed, dated, & timed a copy & placed in chart
--- NOTE | 2024-08-04 13:19 | PM.PN ---
Subjective Subjective: No acute events overnight. Patient has remained hemodynamically stable and afebrile. Today morning complaining of worsening of her pain. Denies any nausea, vomiting, headache. Vitals/I&O/Wt Last Vital Signs Temp 98.4 F 08/04/24 12:00 Pulse 84 08/04/24 12:00 Resp 18 08/04/24 12:00 BP 108/65 08/04/24 12:00 Pulse Ox 96 08/04/24 12:00 O2 Del Method Room Air 08/04/24 12:00 08/03/24 08/04/24 08/04/24 22:59 06:59 14:59 Intake Total 360 / 1840 240 / 2080 480 / 480 Output Total 300 / 300 Balance 360 / 1840 -60 / 1780 480 / 480 Weight last 48 hrs Weight 74.979 kg Weight 74.843 kg Weight 73.21 kg Weight 73.028 kg Weight 73.028 kg Physical Exam Narrative: General: No acute distress, AO x3, chronically sick appearing, HEENT: PERRLA, pupils bilaterally equal and reactive Chest: Normal vesicular breath sounds, no added sounds, equal good air entry bilaterally CVS: S1-S2 regular, no murmurs, no tachycardia, no gallops, no rubs Abdomen: Soft, nontender, no organomegaly, bowel sounds present Neuro: No focal deficits, no facial deformity, AO x3, power 5/5 in all limbs Data 08/04/24 06:21 08/04/24 06:21 Micro: Microbiology 08/02/24 16:05 Urine Culture - Preliminary Urine,Clean Catch 08/02/24 19:05 Blood Culture - Preliminary Blood NEGATIVE TO DATE 08/02/24 18:58 Blood Culture - Preliminary Blood NEGATIVE TO DATE 08/02/24 16:05 Bacterial Antigens - Final Urine Kidney A&P Assessment and plan (1) Weakness: Most likely multifactorial with combination of hyponatremia due to dehydration, recent chemotherapy with mild UTI leading to multiple falls. Physical therapy evaluation. Still pending. Fall precautions. (2) Acute UTI: Patient has been treated over last 3 weeks as an outpatient with cefuroxime. Mild symptoms of increased frequency. Follow-up blood culture, urine culture. Continue with IV ceftriaxone for now. De-escalate as per culture results. If remains Gi[place] for next 48 hours will discontinue IV antibiotics. (3) Falls: Orthostatics appreciated. Negative so far. Mild tachycardia on starting up. Fall precautions (4) Hyponatremia: Most likely in setting of dehydration with recent diarrhea. No further diarrhea currently. Continue with normal saline at 75 cc/h. Appreciate urine lites, urine creatinine. Monitor BMP daily. 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 Finished 7 out of 12 cycles of chemotherapy (6) Atherosclerotic heart disease of [place] coronary artery with other forms of angina pectoris: With PCI multiple years ago. Denies any chest pain. Troponin cycle negative. Last echocardiogram from January 2024 showed an EF of 58% with grade 1 diastolic dysfunction. (7) HTN (hypertension): Goal blood pressure less than 140/90 mmHg. Continue with home isosorbide 30 mg daily, lisinopril 20 mg daily, metoprolol changed to 25 mg twice daily. Will uptitrate as for goal blood pressure. Qualifiers: Hypertension type: essential hypertension Qualified Code(s): I10 - Essential (primary) hypertension (8) Anxiety and depression: Continue with home dose of escitalopram, Xanax as needed (9) Leukopenia: Most likely in setting of recent chemotherapy on 07/28. Check respiratory viral panel though. Monitor for neutropenia. If develops neuro. Will start on Levaquin. Plan D-dimer mildly elevated. Will check lower limb Dopplers. Patient does not have tachycardia or difficulty in breathing and remains on room. Concerns of pulmonary embolism. A1c normal. Appreciate lipid panel and iron panel. Low folic acid levels. Start on oral folate supplementation. CODE STATUS: Discussed in detail with the patient. Granddaughter will be the DPOA. Patient does not want any heroic measures in case of cardiac arrest. DNR/DNI. Cardiac diet Physical therapy evaluation Heparin 5000 every 12 hourly for DVT prophylaxis Protonix OPD prophylaxis Plan for the day: Patient has remained hemodynamically stable. Orthostatics have remained negative. Will not check any further orthostatics. Continues to work well with physical therapy. Sodium again 132 today. Seems to be around her baseline. Changed to from a cardiac to a regular diet. Patient developing mild leukopenia today. Has remained afebrile. Will check respiratory viral panel. Developing leukopenia, could be in setting of recent chemotherapy a week ago on 07/28 today. Will to continue to monitor CBC daily. Unlikely but could be in setting of ceftriaxone/beta-lactam's. It seems patient was on cefuroxime prior to admission. Will continue to finish a 3-day course. Blood culture urine culture so far negative. Goal blood pressure less than 140/90 mmHg. Blood pressure so far stable on home dose of metoprolol, lisinopril and Imdur. Working well with physical therapy. Discharge plan: Elderly female lives with elderly with recurrent falls and worsening weakness over the last 3 weeks in setting of chemotherapy and UTI. Patient requesting transfer to SNF if possible. Plan to discharge to SNF. Case management alerted. Attestations Medical Necessity Statement*: Requires further hospitalization while safe discharge planning is sought in a patient admitted with complaints of generalized weakness with recurrent falls in setting of UTI in a patient on chemotherapy for breast cancer Diagnoses Weakness R53.1 Acute UTI N39.0 Falls W19.XXXA Hyponatremia E87.1 Infiltrating ductal carcinoma of overlapping sites of right breast in female C50.811 Atherosclerotic heart disease of [place] coronary artery with other forms of angina pectoris I25.118 Essential hypertension I10 Hypertension type: essential hypertension Anxiety and depression F41.9; F32.A Leukopenia D72.819
[2024-08-04] MEDS: sodium chloride 1 gm Tablet PO (13:49)
[2024-08-04 14:47] LABS: Adenovirus Not Detected (NOT DETECT); Chlamydia Pneumoniae Not Detected (NOT DETECT); Coronavirus 229E,HKU1,NL63,OC4 Not Detected (NOT DETECT); Human Metapneumovirus Not Detected (NOT DETECT); Human Rhinovirus/Enterovirus Not Detected (NOT DETECT); Influenza A Not Detected (NOT DETECT); Influenza A H1 Not Detected (NOT DETECT); Influenza A H1-2009 Not Detected (NOT DETECT); Influenza A H3 Not Detected (NOT DETECT); Influenza B Not Detected (NOT DETECT); Mycoplasma Pneumoniae Not Detected (NOT DETECT); Parainfluenza Virus Type 1 Not Detected (NOT DETECT); Parainfluenza Virus Type 2 Not Detected (NOT DETECT); Parainfluenza Virus Type 3 Not Detected (NOT DETECT); Parainfluenza Virus Type 4 Not Detected (NOT DETECT); Respiratory Syncytial Virus A Not Detected (NOT DETECT); Respiratory Syncytial Virus B Not Detected (NOT DETECT); SARS-COV-2 Not Detected (NOT DETECT)
[2024-08-04] MEDS: tizanidine 4 mg Tablet 2 MG PO (20:24)
[2024-08-04] MEDS: cefTRIAXone 1,000 mg SDV 1000 MG IVP (20:24)
[2024-08-04] MEDS: trazodone 50 mg Tablet PO (20:24)
[2024-08-05] VITALS (12 sets, daily range): BP systolic 110–160; BP diastolic 52–74; PULSE 69–75; RESP 16–20; TEMP 36.4–36.9; O2SAT 95–97
[2024-08-05] MEDS: TRAMadol 50 mg Tablet PO ×2 (02:17→08:56)
[2024-08-05] MEDS: oxyCODONE 5 mg IR Tab/Cap 15 MG PO ×3 (04:18→17:38)
[2024-08-05 06:25] LABS: Basophils # 0.1 10^3/uL (0.0-0.1); Basophils % 1.4 %; Eosinophils % 1.2 %; Hematocrit 27.6 % (36-47); Lymphocytes # 1.4 10^3/uL (0.8-4.8); Lymphocytes % 39.7 %; Mean Corpuscular HGB Conc 32.6 g/dL (30-55); Mean Corpuscular Hemoglobin 28.3 pg (27-33); Mean Corpuscular Volume 86.8 fl (85-98); Mean Platelet Volume 10.5 fL (7.4-10.4); Monocytes # 0.3 10^3/uL (0.2-0.9); Monocytes % 7.8 %; Neutrophils # 1.69 10^3/uL (1.8-7.7); Nucleated Red Blood Cells % 0 %; Platelet Count 197 10^3/cmm (157-399); Red Blood Count 3.18 10^6/uL (3.85-5.65); Red Cell Distribution Width 20.1 % (12.1-15.1); White Blood Count 3.45 10^3/uL (3.29-11.43)
[2024-08-05 06:41] LABS: Alanine Aminotransferase 8 U/L (0-33); Albumin Level 3.8 g/dL (3.5-5.2); Alkaline Phosphatase 72 U/L (35-105); Anion Gap 14.1 (5-19); Aspartate Amino Transferase 16 U/L (0-32); Blood Urea Nitrogen 7 mg/dL (8-23); Calcium 8.7 mg/dL (8.5-10.5); Carbon Dioxide 21 mmol/L (22-29); Chloride 100 mmol/L (98-107); Globulin 1.9 g/dL (1.3-4.6); Glucose 101 mg/dL (65-115); Osmolality Calculated 270 mOsm/kg (285-295); Potassium 4.1 mmol/L (3.5-5.1); Sodium 131 mmol/L (136-145); Total Bilirubin 0.2 mg/dL (0.15-1.2); Total Protein 5.7 g/dL (6.6-8.7)
[2024-08-05] MEDS: metoprolol tartrate 50 mg Tablet 25 MG PO ×2 (08:56→17:38)
[2024-08-05] MEDS: acetaminophen 325 mg Tablet 650 MG PO (08:56)
[2024-08-05] MEDS: pantoprazole DR 40 mg Tablet PO (08:57)
[2024-08-05] MEDS: docusate sodium 100 mg Capsule PO ×2 (08:57→17:38)
[2024-08-05] MEDS: lisinopril 20 mg Tablet PO (08:57)
[2024-08-05] MEDS: isosorbide mononitrate ER 30 mg Tablet PO (08:57)
[2024-08-05] MEDS: folic acid 1 mg Tablet PO ×2 (08:57→17:39)
[2024-08-05] MEDS: levothyroxine 25 mcg Tablet PO (08:57)
[2024-08-05] MEDS: escitalopram 10 mg Tablet PO (08:57)
[2024-08-05] MEDS: clopidogrel 75 mg Tablet PO (08:57)
[2024-08-05] MEDS: heparin 5,000 unit/mL INJ 1 mL 5000 UNIT SUBCUT ×2 (08:57→20:42)
--- NOTE | 2024-08-05 13:53 | P.PN_ITS ---
Subjective 2 Subjective: Patient reports she is still having some breakthrough pain. She has been asking for oxycodone and her tramadol every time she can have it. Says she is eating and drinking okay. Denies other concerns at this time. Medications: Reviewed: Yes Vitals/I&O/Wt Last Vital Signs Temp 97.8 F 08/05/24 11:54 Pulse 69 08/05/24 11:54 Resp 18 08/05/24 11:54 BP 134/59 08/05/24 11:54 Pulse Ox 97 08/05/24 11:54 O2 Del Method Room Air 08/05/24 11:54 08/04/24 08/05/24 08/05/24 22:59 06:59 14:59 Intake Total 360 / 1200 240 / 240 Output Total 300 / 300 Balance 60 / 900 240 / 240 Weight last 48 hrs Weight 158 lb 2 oz Weight 165 lb 4.8 oz Weight 165 lb 4.8 oz Weight 165 lb 4.8 oz Physical Exam 2 Narrative: General: No acute distress, AO x3. Ill-appearing. HEENT: PERRLA. Chest: Lungs clear to auscultation. No wheezes, rhonchi, rales. Heart: S1-S2 regular, no murmurs, no tachycardia, no gallops, no rubs Abdomen: Soft, nontender, no organomegaly, bowel sounds present Neuro: No focal deficits, no facial deformity, AO x3. Data 08/05/24 05:40 08/05/24 05:40 Micro: Microbiology 08/02/24 16:05 Urine Culture - Preliminary Urine,Clean Catch Strep agalactiae - (group b) A&P Assessment and plan (1) Weakness: Most likely multifactorial with combination of hyponatremia due to dehydration, recent chemotherapy with mild UTI leading to multiple falls. Physical therapy evaluation. Still pending. Fall precautions. (2) Acute UTI: Patient has been treated over last 3 weeks as an outpatient with cefuroxime. Mild symptoms of increased frequency. Follow-up blood culture, urine culture. Continue with IV ceftriaxone for now. De-escalate as per culture results. If remains [place] for next 48 hours will discontinue IV antibiotics. (3) Falls: (4) Hyponatremia: Most likely in setting of dehydration with recent diarrhea. No further diarrhea currently. Continue with normal saline at 75 cc/h. Appreciate urine lites, urine creatinine. Monitor BMP daily. 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 Finished 7 out of 12 cycles of chemotherapy (6) Atherosclerotic heart disease of [place] coronary artery with other forms of angina pectoris: With PCI multiple years ago. Denies any chest pain. Troponin cycle negative. Last echocardiogram from January 2024 showed an EF of 58% with grade 1 diastolic dysfunction. (7) HTN (hypertension): Goal blood pressure less than 140/90 mmHg. Continue with home isosorbide 30 mg daily, lisinopril 20 mg daily, metoprolol changed to 25 mg twice daily. Will uptitrate as for goal blood pressure. Qualifiers: Hypertension type: essential hypertension Qualified Code(s): I10 - Essential (primary) hypertension (8) Anxiety and depression: Continue with home dose of escitalopram, Xanax as needed (9) Leukopenia: Most likely in setting of recent chemotherapy on 07/28. Check respiratory viral panel though. Monitor for neutropenia. If develops neuro. Will start on Levaquin. Plan Plan for the day: Continue close inpatient monitoring. Continue therapies. Patient has remained hemodynamically stable. Continue therapies. Sodium again 131 today. Seems to be around her baseline. Diet changed to regular. Patient developing mild leukopenia today. Has remained afebrile. Will check respiratory viral panel. Developing leukopenia, could be in setting of recent chemotherapy a week ago on 07/28 today. Will to continue to monitor CBC daily. Continue Rocephin for now. Blood cultures negative to date. Urine growing group B strep. Goal blood pressure less than 140/90 mmHg. Blood pressure so far stable on home dose of metoprolol, lisinopril and Imdur. Working well with physical therapy. Code Status: DNR/DNI. IVF: None DVT PPx: Heparin GI PPx: Protonix ABx: Rocephin Diet: Regular Discharge plan: Elderly female lives with elderly with recurrent falls and worsening weakness over the last 3 weeks in setting of chemotherapy and UTI. Patient requesting transfer to SNF if possible. Plan to discharge to SNF. Case management alerted. Attestations 2 Medical Necessity Statement*: Requires further hospitalization while safe discharge planning is sought in a patient admitted with complaints of generalized weakness with recurrent falls in setting of UTI in a patient on chemotherapy for breast cancer Coding Level of Care Code Acute Code for Chg Fwd Moderate MDM includes number and complexity of problems actively addressed during encounter, amount and/or complexity of data reviewed/ordered and described risk of complication, morbidity or mortality of management as documented Diagnoses Weakness R53.1 Acute UTI N39.0 Falls W19.XXXA Hyponatremia E87.1 Infiltrating ductal carcinoma of overlapping sites of right breast in female C50.811 Atherosclerotic heart disease of [place] coronary artery with other forms of angina pectoris I25.118 Essential hypertension I10 Hypertension type: essential hypertension Anxiety and depression F41.9; F32.A Leukopenia D72.819
[2024-08-05] MEDS: fentaNYL 25 mcg Patch 1 PATCH TRANSDERMA (20:41)
[2024-08-05] MEDS: tizanidine 4 mg Tablet 2 MG PO (20:42)
[2024-08-05] MEDS: trazodone 50 mg Tablet PO (20:42)
[2024-08-06] VITALS (8 sets, daily range): BP systolic 120–165; BP diastolic 51–81; PULSE 71–92; RESP 16–18; TEMP 36.7–36.9; O2SAT 95–97
[2024-08-06] MEDS: oxyCODONE 5 mg IR Tab/Cap 10 MG PO ×2 (00:38→09:48)
[2024-08-06] MEDS: clopidogrel 75 mg Tablet PO (09:41)
[2024-08-06] MEDS: heparin 5,000 unit/mL INJ 1 mL 5000 UNIT SUBCUT (09:41)
[2024-08-06] MEDS: levothyroxine 25 mcg Tablet PO (09:42)
[2024-08-06] MEDS: folic acid 1 mg Tablet PO (09:42)
[2024-08-06] MEDS: pantoprazole DR 40 mg Tablet PO (09:42)
[2024-08-06] MEDS: docusate sodium 100 mg Capsule PO (09:42)
[2024-08-06] MEDS: metoprolol tartrate 50 mg Tablet 25 MG PO (09:42)
[2024-08-06] MEDS: isosorbide mononitrate ER 30 mg Tablet PO (09:42)
[2024-08-06] MEDS: escitalopram 10 mg Tablet PO (09:42)
[2024-08-06] MEDS: lisinopril 20 mg Tablet PO (09:42)
[2024-08-06 10:25] LABS: SARS Covid-2 Antigen Negative (Negative)
--- NOTE | 2024-08-06 11:42 | PC.SOCIAL ---
IMM Updated Updated pt on IMM. No questions voiced. Provided pt a copy. Initialed, dated, & timed copy in chart.
--- NOTE | 2024-08-06 12:26 | P.DS_ITS ---
Discharge Providers Date of Admission: 08/02/24 18:38 Date of Discharge: August 08, 2024 Attending Provider at Admission: Nazario Duenas MD Attending Provider at Discharge: Nazario Duenas MD Primary Care Provider: rEan Garcia MD Diagnoses at Discharge Discharge Diagnosis (1) Weakness: Status: Acute (2) Acute UTI: Status: Acute (3) Falls: Status: Acute (4) Hyponatremia: Status: Acute (5) Infiltrating ductal carcinoma of overlapping sites of right breast in female: Status: Acute (6) Atherosclerotic heart disease of [place] coronary artery with other forms of angina pectoris: Status: Acute (7) HTN (hypertension): Status: Acute Qualifiers: Hypertension type: essential hypertension Qualified Code(s): I10 - Essential (primary) hypertension (8) Anxiety and depression: Status: Acute (9) Leukopenia: Status: Acute Reason for Visit Reason for Visit: Fall Hospital Course Hospital Course Marcy Byers is a 79 year old female chemotherapy 7/12 cycles with last cycle 3 weeks ago, hypertension, hypothyroidism, CAD post PCI more than 10 years ago who lives at home with an elderly presents to the ER today with elevated generalized weakness increasing over the last 3 weeks worsened over the last 1 week. Patient reports that she has had multiple falls over the last week. States that her right hip and leg are little bit sore. She is also very concerned that if she gets up and walks or performs any physical activity that she will follow again. She endorses increased urinary frequency over the last 3 weeks, but does not endorse any pain. She denies any fever, chills, body aches, or other signs of infection at this time. She was admitted to [facility], started on antiemetics, IV hydration therapy, and pain medications. Blood and urine cultures were obtained. She was started on ceftriaxone. Cardiac workup was obtained and was negative for acute TX. Physical therapy was consulted to evaluate and treat. Case management was also consulted to discuss transition to half-way facility for rehab for a few weeks. Orthostatic blood pressures were checked regularly to evaluate for orthostatic hypotension. Her blood pressure did maintain itself throughout her hospitalization. Head CT was negative for acute CVA/TIA. Pelvic x-ray was negative for acute fracture. She did have an elevated D-dimer, and a venous duplex was performed which did not show any acute DVT in the lower extremities. Her pain medication was adjusted as patient was asking for her oxycodone every 6 hours, and tramadol for breakthrough pain. She was started on a fentanyl patch of 25 mcg. In addition her oxycodone was decreased to 10 mg every 6 hours and the tramadol was discontinued. She was noted to be hyponatremic on admission, and this was corrected with pradeep ine infusion. It appears her baseline is around low 130 range and she correct back to her baseline. Her urine culture did grow group B strep, which was susceptible to her antibiotic regimen. Case management was able to get her placed in SNF for a couple of weeks to receive rehab, ongoing monitoring, and help to improve her strength, balance, and gait. She was improved and stable condition at discharge. Physical Exam Narrative: General: No acute distress, AO x3. Ill-appearing. HEENT: PERRLA. Chest: Lungs clear to auscultation. No wheezes, rhonchi, rales. Heart: S1-S2 regular, no murmurs, no tachycardia, no gallops, no rubs Abdomen: Soft, nontender, no organomegaly, bowel sounds present Neuro: No focal deficits, no facial deformity, AO x3. Discharge Data Studies Completed and Pending Completed Studies During Hospitalization Category Date Time Status CT head wo con* [id number] Stat Cat Scan 08/02/24 15:30 Completed CXRP [XR chest 1V portable [id number]] Stat Exams 08/02/24 15:30 Completed XR pelvis 1-2V* [id number] Stat Exams 08/02/24 15:30 [place] [id number] Routine Ultrasound 08/03/24 08:33 Completed Radiology Impressions Chest X-Ray 08/02/24 15:30 IMPRESSION: Left lower lobe atelectasis versus early infiltrate. Head CT 08/02/24 15:30 IMPRESSION: 1. No acute intracranial hemorrhage or edema. 2. Mild atrophy and small vessel disease. Pelvis X-Ray 08/02/24 15:30 IMPRESSION: No acute findings. Laboratory Results WBC 3.45 10^3/uL (3.29-11.43) 08/05/24 05:40 RBC 3.18 10^6/uL (3.85-5.65) L 08/05/24 05:40 Hgb 9.00 g/dL (11.27-16.99) L 08/05/24 05:40 Hct 27.6 % (36-47) L 08/05/24 05:40 MCV 86.8 fl (85-98) 08/05/24 05:40 MCH 28.3 pg (27-33) 08/05/24 05:40 MCHC 32.6 g/dL (30-55) 08/05/24 05:40 RDW 20.1 % (12.1-15.1) H 08/05/24 05:40 Plt Count 197 10^3/cmm (157-399) 08/05/24 05:40 MPV 10.5 fL (7.4-10.4) H 08/05/24 05:40 Neut % (Auto) 49.0 % 08/05/24 05:40 Lymph % (Auto) 39.7 % 08/05/24 05:40 [place] % (Auto) 7.8 % 08/05/24 05:40 Eos % (Auto) 1.2 % 08/05/24 05:40 Baso % (Auto) 1.4 % 08/05/24 05:40 Neut # (Auto) 1.69 10^3/uL (1.8-7.7) L 08/05/24 05:40 Lymph # (Auto) 1.4 10^3/uL (0.8-4.8) 08/05/24 05:40 [place] # (Auto) 0.3 10^3/uL (0.2-0.9) 08/05/24 05:40 Eos # (Auto) 0.0 10^3/uL (0.0-0.8) 08/05/24 05:40 Baso # (Auto) 0.1 10^3/uL (0.0-0.1) 08/05/24 05:40 Nucleated RBC % (auto) 0 % 08/05/24 05:40 Nucleated RBCs # 0.0 /100WBC 08/05/24 05:40 D-Dimer 2.54 ug/mLFEU (0-0.59) H 08/02/24 16:37 Sodium 131 mmol/L (136-145) L 08/05/24 05:40 Potassium 4.1 mmol/L (3.5-5.1) 08/05/24 05:40 Chloride 100 mmol/L (98-107) 08/05/24 05:40 Carbon Dioxide 21 mmol/L (22-29) L 08/05/24 05:40 Anion Gap 14.1 (5-19) 08/05/24 05:40 BUN 7 mg/dL (8-23) L 08/05/24 05:40 Creatinine 0.8 mg/dL (0.5-0.9) 08/05/24 05:40 GFR Calculation Not Reportable 08/05/24 05:40 Glucose 101 mg/dL (65-115) 08/05/24 05:40 Estimat Average Glucose 97 08/03/24 04:44 Hemoglobin A1c 5.0 % (4.0-6.0) 08/03/24 04:44 Calculated Osmolality 270 mOsm/kg (285-295) L 08/05/24 05:40 Calcium 8.7 mg/dL (8.5-10.5) 08/05/24 05:40 Phosphorus 2.8 mg/dL (2.5-4.5) 08/03/24 04:44 Magnesium 1.7 mg/dL (1.7-2.3) 08/03/24 04:44 Total Bilirubin 0.2 mg/dL (0.15-1.2) 08/05/24 05:40 AST 16 U/L (0-32) 08/05/24 05:40 ALT 8 U/L (0-33) 08/05/24 05:40 Alkaline Phosphatase 72 U/L (35-105) 08/05/24 05:40 Troponin T Baseline 14 ng/L (0-10) H 08/02/24 16:37 Troponin T 120 Minute 13.90 ng/L (0-10) H 08/02/24 18:58 Delta Troponin T -0.10 ABS# (0-10) L 08/02/24 18:58 Troponin T Hi Sens 6Hr 15.62 ng/L (0-10) H 08/02/24 22:51 Troponin T Hi Sens 6Hr Delta 1.62 ng/L (0-12) 08/02/24 22:51 NT-Pro-B Natriuret Pep 64 pg/mL (0-450) 08/02/24 16:37 Total Protein 5.7 g/dL (6.6-8.7) L 08/05/24 05:40 Albumin 3.8 g/dL (3.5-5.2) 08/05/24 05:40 Globulin 1.9 g/dL (1.3-4.6) 08/05/24 05:40 Triglycerides 120 mg/dL (0-150) 08/03/24 04:44 Cholesterol 140 mg/dL (0-200) 08/03/24 04:44 LDL Cholesterol, Calc 78 mg/dL (50-129) 08/03/24 04:44 HDL Cholesterol 38 mg/dL (60-100) L 08/03/24 04:44 LDL/HDL Ratio 2.05 RATIO (0.00-3.22) 08/03/24 04:44 Cholesterol/HDL Ratio 3.68 mg/dL (0.0-4.40) 08/03/24 04:44 Vitamin B12 436 pg/mL (232-1245) 08/02/24 18:58 Folate 2.8 ng/mL (4.8-37.3) L 08/03/24 04:44 Procalcitonin 0.09 ng/mL (0-0.5) 08/03/24 04:44 TSH 2.73 uIU/mL (0.27-4.20) 08/02/24 16:37 Urine Color Yellow (Yellow) 08/02/24 16:05 Urine Appearance Clear (CLEAR) 08/02/24 16:05 Urine pH 5.5 (5-7) 08/02/24 16:05 Ur Specific [place] 1.020 (1.005-1.030) 08/02/24 16:05 Urine Protein 1+ (Negative) A 08/02/24 16:05 Urine Glucose (UA) Negative (Normal) 08/02/24 16:05 Urine Ketones Trace (Negative) 08/02/24 16:05 Urine Blood 1+ (Negative) A 08/02/24 16:05 Urine Nitrate Negative (Negative) 08/02/24 16:05 Urine Bilirubin Negative (Negative) 08/02/24 16:05 Urine Urobilinogen 1.0 mg/dL (Negative) 08/02/24 16:05 Ur Leukocyte Esterase 2+ (Negative) A 08/02/24 16:05 Urine RBC 0-4 /hpf (0-2) H 08/02/24 16:05 Urine WBC 55-80 /hpf (0-5) H 08/02/24 16:05 Ur Squamous Epith Cells 0-4 /hpf (0-5) H 08/02/24 16:05 Amorphous Sediment Not Reportable 08/02/24 16:05 Urine Bacteria Trace /hpf (NONE) 08/02/24 16:05 Urine Mucus Trace /hpf 08/02/24 16:05 Adenovirus (PCR) Not detected (NOT DETECT) 08/04/24 11:40 C. pneumoniae DNA (PCR) Not detected (NOT DETECT) 08/04/24 11:40 Coronavirus 229E (PCR) Not detected (NOT DETECT) 08/04/24 11:40 Human Metapneumovir PCR Not detected (NOT DETECT) 08/04/24 11:40 Influenza A (H1) PCR Not detected (NOT DETECT) 08/04/24 11:40 Influ A (H1/09) PCR Not detected (NOT DETECT) 08/04/24 11:40 Influenza A (H3) PCR Not detected (NOT DETECT) 08/04/24 11:40 Influenza Type A (PCR) Not detected (NOT DETECT) 08/04/24 11:40 Influenza Type B (PCR) Not detected (NOT DETECT) 08/04/24 11:40 M. pneumoniae (PCR) Not detected (NOT DETECT) 08/04/24 11:40 Parainfluenza 1 (PCR) Not detected (NOT DETECT) 08/04/24 11:40 Parainfluenza 2 (PCR) Not detected (NOT DETECT) 08/04/24 11:40 Parainfluenza 3 (PCR) Not detected (NOT DETECT) 08/04/24 11:40 Parainfluenza 4 (PCR) Not detected (NOT DETECT) 08/04/24 11:40 RSV Type A (PCR) Not detected (NOT DETECT) 08/04/24 11:40 RSV Type B (PCR) Not detected (NOT DETECT) 08/04/24 11:40 Entero/Rhino (PCR) Not detected (NOT DETECT) 08/04/24 11:40 SARS-CoV-2 (PCR) Not detected (NOT DETECT) 08/04/24 11:40 SARS-CoV-2 Ag (Rapid) Negative (Negative) 08/06/24 09:37 Vitals Last Vital Signs Temp 98.0 F 08/06/24 11:43 Pulse 76 08/06/24 14:54 Resp 18 08/06/24 11:43 BP 147/71 08/06/24 14:54 Pulse Ox 97 08/06/24 14:54 O2 Del Method Room Air 08/06/24 11:43 Discharge Plan Discharge Patient Disposition: Xfer SNF Condition: Stable Prescriptions: New fentanyl 25 mcg/hr Patch 72 Hour 1 patch transdermal Q72H Qty: 10 0RF Continued calcium carbonate [Antacid (calcium carbonate)] 200 mg calcium (500 mg) tablet,chewable 400 mg PO BEDTIME Rx Instructions: USES TUMS Adult 50 Plus Probiotic 4 billion cell capsule 4,000 mmu cells PO DAILY Rx Instructions: administer with a meal albuterol sulfate [Ventolin HFA] 90 mcg/actuation HFA aerosol inhaler 2 puff inhalation Q6H PRN (Reason: shortness of breath or wheezing) Qty: 8.5 8RF lisinopril 20 mg tablet 20 mg PO DAILY latanoprost 0.005 % drops 1 drp ophthalmic (eye) DAILY metoprolol tartrate 50 mg tablet 50 mg PO DAILY simvastatin 20 mg tablet 20 mg PO DAILY lorazepam 1 mg tablet 0.5 - 1 mg PO Q6H PRN (Reason: Severe Nausea) Qty: 30 3RF Hold Instructions: does not wish to switch from alprazolam prochlorperazine maleate [Compazine] 10 mg tablet 10 mg PO Q4H PRN (Reason: Mild Nausea) Qty: 30 3RF hydrocortisone [Proctosol HC] 2.5 % cream with perineal applicator 1 applic DC BID PRN (Reason: hemorrhoids) Qty: 30 0RF (DME) Bedside commode See Rx Instructions .Route .MEDSUPPLY Qty: 1 0RF Rx Instructions: As directed pantoprazole 40 mg tablet,delayed release (DR/EC) 40 mg PO DAILY Qty: 30 8RF magnesium L-lactate [Magtab] 84 mg tablet extended release 84 mg PO BID Qty: 180 3RF Rx Instructions: Take 1 tab twice daily for palpitations nitroglycerin [Nitrostat] 0.4 mg tablet, sublingual 0.4 mg sublingual Q5M PRN (Reason: chest pain) Qty: 50 3RF Rx Instructions: do not exceed 3 doses per episode clopidogrel 75 mg tablet 75 mg PO DAILY Qty: 90 3RF Hold Instructions: Resume on 04/24/24. tizanidine 2 mg tablet 2 mg PO BEDTIME PRN (Reason: muscle spasticity) Qty: 30 2RF levothyroxine 25 mcg tablet 25 mcg PO DAILY Qty: 90 0RF trazodone 50 mg tablet 50 mg PO BEDTIME Qty: 90 3RF ferrous sulfate 325 mg (65 mg iron) tablet 325 mg PO .qod Qty: 30 2RF escitalopram oxalate 10 mg tablet 10 mg PO DAILY Qty: 30 0RF (DME) Walker See Rx Instructions .Route .MEDSUPPLY Qty: 1 0RF Rx Instructions: As directed cefuroxime axetil 500 mg tablet 500 mg PO BID 10 Days Qty: 20 0RF famotidine 20 mg tablet 20 mg PO BID Qty: 60 0RF oxycodone 15 mg tablet 15 mg PO Q6H PRN (Reason: pain) 30 Days Qty: 120 0RF isosorbide mononitrate 30 mg tablet extended release 24 hr 30 mg PO DAILY Qty: 90 3RF furosemide 20 mg tablet 20 mg PO DAILY Rx Instructions: Take 1/2 (one-half) tablet by mouth once daily docusate sodium [Colace] 100 mg capsule 100 mg PO BID Qty: 10 0RF Discharge Orders: Discharge Order (Routine); Ordered 08/06/24 Ordered By: Tony Ordaz Referrals: [facility] [Outside] Eran Garcia MD [Primary Care Provider] - Patient Instructions: Urinary Tract Infection in Women (DC), Hyponatremia (DC), Weakness (DC), Opioid Safety Discharge Attestations Time Spent in Discharge Care*: less than 30 min Specific Discharge Activities: educating patient, educating and/or supporting family/caregiver, discussing with pcp/other providers, discussing with protective services case worker/social workers/dc planners, documenting/other paperwork and evaluating patient/reviewing data Quality Metrics Clinical Quality Measures [ No reported AMI, CVA or VTE this stay] Coding Level of Care Code Acute Code for Chg Fwd Total time (in minutes) for Discharge: 24 Diagnoses Weakness R53.1 Acute UTI N39.0 Falls W19.XXXA Hyponatremia E87.1 Infiltrating ductal carcinoma of overlapping sites of right breast in female C50.811 Atherosclerotic heart disease of [place] coronary artery with other forms of angina pectoris I25.118 Essential hypertension I10 Hypertension type: essential hypertension Anxiety and depression F41.9; F32.A Leukopenia D72.819
== END 2024-08-06 13:53 | disposition skilled nursing facility (03) | DRG 690 ==
LOC: ER 17:33 → MEDSURG 18:39
PROVIDERS: Family Medicine; Admitting Provider Student in an Organized Health Care Education/Training Program; Emergency Provider Emergency Medicine; PCP Family Medicine; Visit Provider Student in an Organized Health Care Education/Training Program
DX: N39.0 Urinary tract infection, site not specified (principal); E87.1 Hypo-osmolality and hyponatremia; Z11.52 Encounter for screening for COVID-19; Z79.60 Long term (current) use of unspecified immunomodulators and immunosuppressants; I10 Essential (primary) hypertension; E03.9 Hypothyroidism, unspecified; I25.10 Atherosclerotic heart disease of native coronary artery without angina pectoris; R29.6 Repeated falls; C50.811 Malignant neoplasm of overlapping sites of right female breast; J45.909 Unspecified asthma, uncomplicated; G47.00 Insomnia, unspecified; M79.7 Fibromyalgia; M19.90 Unspecified osteoarthritis, unspecified site; G62.9 Polyneuropathy, unspecified; E78.5 Hyperlipidemia, unspecified; Z96.653 Presence of artificial knee joint, bilateral; B95.1 Streptococcus, group B, as the cause of diseases classified elsewhere; D72.819 Decreased white blood cell count, unspecified; Z66 Do not resuscitate; F32.A Depression, unspecified; F41.9 Anxiety disorder, unspecified; E86.0 Dehydration; Z79.02 Long term (current) use of antithrombotics/antiplatelets; Z79.51 Long term (current) use of inhaled steroids; Z95.5 Presence of coronary angioplasty implant and graft; Z87.440 Personal history of urinary (tract) infections; Z86.73 Personal history of transient ischemic attack (TIA), and cerebral infarction without residual deficits
CPT/HCPCS: 36415; 36591; 70450; 71045; 72170; 80053; 80061; 81001; 82607; 82746; 83036; 83735; 83880; 84100; 84145; 84443; 84484; 85025; 85378; 86403; 87040; 87086; 87426; 87486; 87581; 87633; 93005; 93970; 94664; 96372; 96374; 97110; 97116; 97162; 97166; 97530; 99285; J0696; J1644; J2270; J2405; J7030

== ENCOUNTER 2024-08-31 11:05 | Oncology outpatient (recurring) (ONCR) | payer MEDICARE, SELFPAY ==
[2024-08-31 11:52] LABS: Basophils % 0.4 %; Eosinophils # 0.2 10^3/uL (0.0-0.8); Eosinophils % 1.9 %; Lymphocytes # 2.3 10^3/uL (0.8-4.8); Lymphocytes % 20.5 %; Mean Corpuscular HGB Conc 34.5 g/dL (30-55); Mean Corpuscular Hemoglobin 30.7 pg (27-33); Mean Corpuscular Volume 88.9 fl (85-98); Mean Platelet Volume 10.3 fL (7.4-10.4); Monocytes # 0.7 10^3/uL (0.2-0.9); Monocytes % 6.6 %; Neutrophils # 7.92 10^3/uL (1.8-7.7); Neutrophils % 70.2 %; Nucleated Red Blood Cells % 0 %; Platelet Count 252 10^3/cmm (157-399); Red Blood Count 3.71 10^6/uL (3.85-5.65); Red Cell Distribution Width 17.1 % (12.1-15.1); White Blood Count 11.29 10^3/uL (3.29-11.43)
[2024-08-31 12:14] LABS: Alanine Aminotransferase 11 U/L (0-33); Albumin Level 3.9 g/dL (3.5-5.2); Alkaline Phosphatase 66 U/L (35-105); Anion Gap 23.1 (5-19); Aspartate Amino Transferase 25 U/L (0-32); Blood Urea Nitrogen 22 mg/dL (8-23); CA 15-3 16.9 U/mL (0-25); Calcium 9.7 mg/dL (8.5-10.5); Carbon Dioxide 19 mmol/L (22-29); Chloride 92 mmol/L (98-107); Globulin 1.9 g/dL (1.3-4.6); Glucose 99 mg/dL (65-115); Osmolality Calculated 273 mOsm/kg (285-295); Potassium 4.1 mmol/L (3.5-5.1); Sodium 130 mmol/L (136-145); Total Bilirubin 0.6 mg/dL (0.15-1.2); Total Protein 5.8 g/dL (6.6-8.7)
[2024-08-31] MEDS: sodium chloride 0.9% 1,000 ML 999 ML IV (13:42)
== END 2024-09-04 23:59 | disposition home or self-care (01) ==
LOC: ONCMED 11:06
PROVIDERS: Nurse Practitioner Family; PCP Family Medicine; Visit Provider Internal Medicine Hematology & Oncology
DX: C50.811 Malignant neoplasm of overlapping sites of right female breast (principal); Z79.899 Other long term (current) drug therapy; E86.0 Dehydration; B37.0 Candidal stomatitis; B37.2 Candidiasis of skin and nail
CPT/HCPCS: 36591; 80053; 85025; 86300; 96360; 99214; J7030